=== PATIENT | female | born 1985 | race African-American/Black ===

== ENCOUNTER 2016-11-07 14:59 | Observation (INO) | payer BC, OTHER ==
[2016-11-07 15:57] LABS: #Basophils 0.1 thou/uL (0.0-0.2); #Eosinphils 0.3 thou/uL (0.0-0.7); #Lymphocytes 1.8 thou/uL (1.20-3.40); #Monocytes 0.8 thou/uL (0.11-0.59); #Neutrophils 6.5 thou/uL (1.40-6.50); %Basophils 0.9 % (0.0-1.0); %Eosinophils 3.1 % (0.0-10.0); %Monocytes 8.3 % (0.0-10.0); Hematocrit 37.8 % (36.0-47.0); White Blood Cell (WBC) Count 9.5 thou/uL (4.8-10.8)
[2016-11-07 15:59] LABS: PTT 23.5 SEC (22.9-36.1); Prothrombin Time 13.5 SEC (12.0-14.7)
[2016-11-07 16:06] LABS: Bilirubin Negative (Negative); Blood, Urine Negative (Negative); Glucose, Urine (Dipstick) Negative (Negative); Ketone, Urine Negative (Negative); Nitrite Negative (Negative); Protein, Urine (Dipstick) Negative (Neg-Trace)
[2016-11-07 16:19] LABS: Troponin I Less than 0.010 ng/mL (< 0.028)
[2016-11-07 16:25] LABS: Amphetamine Not Detected (NotDetected); Methadone Not Detected (NotDetected); Methamphetamine Not Detected (NotDetected)
[2016-11-07 16:29] LABS: Acetaminophen Less than 6.0 mcg/mL (10.0-30.0); Salicylate Less than 8.0 mg/dL (15.0-30.0)
--- NOTE | 2016-11-07 16:40 | CT ---
EXAM: NONCONTRAST HEAD CT: 11/07/16 HISTORY: Altered mental status. Left sided numbness. COMPARISON: None. TECHNIQUE: Noncontrast head CT is performed from skull base to skull vertex. FINDINGS: No parenchymal hemorrhage. No extra-axial hematoma. No midline shift. Basilar cisterns are patent. B rain volume, age appropriate. Cortical gan-white matter differentiation is preserved. Ventricles and sulci are patent and symmetric. Calvarium is intact. Adequate aeration of the sinuses and mastoid air cells. IMPRESSION: No acute intracranial process. POS: [facility]
[2016-11-07 16:51] LABS: ALT (SGPT) 11 U/L (8-55); AST (SGOT) 25 U/L (5-34); Alkaline Phosphatase 68 U/L (40-150); Anion Gap 16 mmol/L (10-20); BUN (Urea Nitrogen) 7 mg/dL (7.0-18.7); Bilirubin, Total 0.3 mg/dL (0.2-1.2); CK (CPK) 84 U/L (29-168); Calc. Creatinine Clearance 0 mL/min (70-130); Calcium 9.2 mg/dL (7.8-10.44); Carbon Dioxide 20 mmol/L (22-29); Chloride 109 mmol/L (98-107); Estimated GFR-MDRD Greater than 90; Globulin 4.1 g/dL (2.4-3.5); Lipase 12 U/L (8-78); Protein, Total 8.3 g/dL (6.0-8.3)
--- NOTE | 2016-11-07 18:09 | RAD ---
1 VIEW CHEST: Date: 11/07/16 HISTORY: Altered mental status. COMPARISON: 11/24/15. FINDINGS: The heart is enlarged. Pulmonary vessels and hilum are normal. Costophrenic angles are clear. No mas s. No consolidation. No pneumothorax or osseous abnormalities. IMPRESSION: No acute cardiopulmonary process. POS: [facility]
[2016-11-07] MEDS ORDERED: Ondansetron ODT 4 MG TAB SL PRN (18:21)
[2016-11-07] MEDS ORDERED: Ondansetron HCl/PF 4 MG/2 ML Vial IVP PRN ×2 (18:21→18:30)
[2016-11-07] MEDS ORDERED: cloNIDine HCl 0.1 MG TAB PO PRN (18:30)
[2016-11-07] MEDS ORDERED: Lorazepam 1 MG TAB PO PRN (18:30)
[2016-11-07] MEDS ORDERED: Ondansetron ODT 4 MG TAB PO PRN (18:30)
[2016-11-07] MEDS ORDERED: Acetaminophen 500 MG TAB PO PRN (18:30)
[2016-11-07 19:24] VITALS: BMI 38.6
[2016-11-07] MEDS: Famotidine 20 MG TAB PO SCH (20:10)
[2016-11-07] MEDS: Ibuprofen 600 MG TAB PO SCH (20:10)
[2016-11-07] MEDS ORDERED: Nitroglycerin 0.4 MG TAB (25 Tab Bottle) PO PRN (23:36)
--- NOTE | 2016-11-08 02:04 | HP ---
DATE OF ADMISSION: 11/07/2016 PRIMARY CARE PROVIDER: [employer]. HISTORY OF PRESENT ILLNESS: This is a 31-year-old -[place] female who complained of left-si ded central chest pain with radiation to the left upper extremity including left arm numbness and le ft lower extremity weakness. The patient states the symptoms began within the last 48 hours, presen ting to [facility] Emergency Department where patient was treated symptomatically and supportiv karel with ibuprofen and tramadol for chest wall pain. The patient states the symptoms persisted with increasing left upper and lower extremity weakness and paresthesias. The patient denied any specif ic visual disturbance, difficulty with speech, recent trauma, injury, chest congestion, pneumonia or exposure history. The patient denied any history of blunt trauma, recent MVA with seatbelt trauma or prior history of similar symptoms. The patient states she remains healthy and does not take any chronic medications. The patient denies any specific change to her activity level, increased exerci se routines. The patient presented to the emergency room undergoing evaluation including CT imaging of the brain showing no acute intracranial process. The patient received aspirin 324 mg in additio n to normal saline IV x1 liter in the emergency room. The patient denied any known history of early coronary artery disease or strong family. 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 PAST SURGICAL HISTORY: 1. Status post adenoidectomy. 2. Status post tonsillectomy. 3. Status post section x2. CURRENT MEDICATIONS: Tramadol and ibuprofen. ALLERGIES: PEANUTS, GRASS POLLEN, MILK, MOLD and SHELLFISH. FAMILY HISTORY: No inheritable diseases per patient report. SOCIAL HISTORY: Patient resides in [place], [place]. The patient resides with her parents. 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 No current alcohol, tobacco or ill icit drug use. REVIEW OF SYSTEMS: The following complete review of systems was negative, unless otherwise mentione d in the HPI or below: Constitutional: Weight loss or gain, ability to conduct usual activities. Skin: Rash, itching. Eyes: Double vision, pain. ENT/Mouth: Nose bleeding, neck stiffness, pain, tenderness. Cardiovascular: Palpitations, dyspnea on exertion, orthopnea. Respiratory: Shortness of breath, wheezing, cough, hemoptysis, fever or night sweats. Gastrointestinal: Poor appetite, abdominal pain, heartburn, nausea, vomiting, constipation, or diar reyna. Genitourinary: Urgency, frequency, dysuria, nocturia. Musculoskeletal: Pain, swelling. Neurologic/Psychiatric: Anxiety, depression. Allergy/Immunologic: Skin rash, bleeding tendency. PHYSICAL EXAMINATION: VITAL SIGNS: On admission, blood pressure 103/73, pulse 83, respiratory rate 18, temperature 98.3 d egrees Fahrenheit, O2 saturation 99% on room air. GENERAL APPEARANCE: This is a 31-year-old -[place] female, alert and oriented x3, pleasant, conversant, smiling, in no acute distress. HEENT: Pupils are equal, round, and reactive to light and accommodation. Extraocular muscles are i ntact. No scleral icterus, no conjunctival injection. Nares patent. OP is clear. Teeth in good r epair. NECK: Supple, no cervical adenopathy, no thyromegaly, no carotid bruits, no JVD appreciated. Cervi talia spine with full active and passive range of motion. CHEST: Lungs are clear to auscultation bilaterally. CARDIOVASCULAR: S1, S2, without noted murmur. ABDOMEN: Rounded, soft, nontender, nondistended. Bowel sounds are positive in all four quadrants. There is no hepatosplenomegaly, no abdominal bruits, no rebound or guarding appreciated. EXTREMITIES: Warm and dry with fair turgor. No clubbing, cyanosis or asymmetric edema appreciated. Pulses palpable distally at the dorsalis pedis, posterior tibial and popliteal arteries bilaterall y. Capillary refill less than 2 seconds. NEUROLOGIC: Cranial nerves II-XII are grossly intact. Mild left upper extremity weakness on exam. Right hand dominant. PERTINENT LABORATORY AND X-RAY FINDINGS: Sodium 141, potassium 4.2, chloride 109, CO2 of 20, BUN 7, creatinine 0.65, estimated GFR greater than 90, glucose 69, calcium 9.2. LFTs within normal limits . BNP 34.1. TSH 1.24. Prolactin level 11.22. Serum beta hCG negative. CBC within normal limits. PT 13.5, INR 1.0, PTT 23.5. Urinalysis negative. Urine drug screen dated 11/07/2016 negative. P lasma alcohol level less than 10. Portable chest x-ray dated 11/07/2016 showed no acute cardiopulmo nary process. CT of the brain without contrast dated 11/07/2016 showed no acute intracranial proces s. EKG dated 11/07/2016 by my interpretation shows sinus mechanism with rates in the 80s. Normal R -wave progression noted in the precordial leads. Normal axis. No acute ST-T wave changes appreciat ed. ASSESSMENT AND PLAN: 1. Left-sided paresthesias. The patient will be observed on the stroke unit. Questionable transie nt ischemic attack versus benign paresthesias. We will proceed with MRI imaging of the brain for de finitive evaluation. The patient's presentation not consistent with a true ischemic event. 2. Chest pain. Appears chest wall in nature on clinical exam. Continue symptomatic and supportive management. Continue ibuprofen 600 mg p.o. t.i.d. 3. Prophylaxis. Sequential compression devices while in bed. Pepcid 20 mg p.o. b.i.d. 4. Code status is FULL. Surrogate medical decision maker is the patient's mother.
[2016-11-08] MEDS: Famotidine 20 MG TAB PO SCH (09:42)
[2016-11-08] MEDS: Ibuprofen 600 MG TAB PO SCH (09:43)
[2016-11-08 12:25] VITALS: BP 110/74; TEMP 97.4
--- NOTE | 2016-11-08 14:46 | MRI ---
MRI BRAIN NONCONTRAST: HISTORY: 31-year-old female with left sided paresthesia, left sided hypesthesia, and altered mental status. FINDINGS: The ventricles are normal in size and configuration. There is no major intraaxial signal abnormalit y, restricted diffusion, midline shift or any other mass effect, recent intraaxial hemorrhage, or ex traaxial fluid collection. The cerebellar tonsils are slightly pointed, but protrude inferior to th e foramen magnum only a distance of approximately 3 mm. IMPRESSION: Negative. jnr POS: [facility]
--- NOTE | 2016-11-08 18:39 | DIS ---
DATE OF ADMISSION: 11/07/2016 DATE OF DISCHARGE: 11/08/2016 DISCHARGE DIAGNOSES: 1. Left-sided paresthesias, etiology unclear, resolved. 2. Chest pain, non-cardiac. CONSULTATIONS: None. PERTINENT LABORATORY DATA AND X-RAY FINDINGS: Complete metabolic profile within normal limits. Tro ponin I negative x1. BNP 34. LFTs within normal limits. Lipase 12. TSH 1.24. Prolactin level 11 .2, serum beta hCG negative. Vitamin B12 level 220. Folate 4.9. CBC within normal limits. Urine drug screen dated 11/07/2016 negative. Urinalysis 11/07/2016 negative. Portable chest x-ray dated 11/07/2016 showed no acute cardiopulmonary process. CT of the brain without contrast dated 11/08/19 17 showed no acute intracranial process. MRI of the brain dated 11/08/2016 showed no acute intracra nial process. HOSPITAL COURSE: Patient was observed on the stroke unit after initially presenting with left-sided weakness and paresthesias concerning for questionable TIA. The patient underwent extensive evaluat ion including neuro imaging studies all negative. Metabolic survey was unrevealing and telemetry mo nitoring showed sinus mechanism without evidence of acute arrhythmia or dysrhythmia. The patient [place] remained clinically stable throughout the hospital course with resolution of symptoms. The pa tient ready for discharge 11/08/2016. DISCHARGE MEDICATION: Ibuprofen 600 mg 1 tablet p.o. t.i.d. p.r.n. FOLLOWUP: The patient will follow up with her primary care provider, Yazmin Mcnair, Family Nurse Josue wiseman within 7 days. CONDITION ON DISCHARGE: Stable. ACTIVITY: Ad femi. DIET: Regular. CODE STATUS: FULL. DISPOSITION: Home, 11/08/2016.
== END 2016-11-08 15:15 | disposition home or self-care (01) ==
LOC: ERS 14:59 → 2SE 16:40
PROVIDERS: ADMIT Internal Medicine; ATTEND Internal Medicine
DX: R20.9 Unspecified disturbances of skin sensation (principal); R07.89 Other chest pain; R53.1 Weakness; R41.82 Altered mental status, unspecified; Z91.010 Allergy to peanuts; Z91.013 Allergy to seafood; Z91.018 Allergy to other foods; Z91.048 Other nonmedicinal substance allergy status; Z79.899 Other long term (current) drug therapy
CPT/HCPCS: 36415; 70450; 70551; 71010; 80053; 80306; 80307; 81003; 82550; 82553; 82607; 82746; 83690; 83735; 83880; 84146; 84443; 84484; 84703; 85025; 85610; 85730; 93005; 94760; 96360; G0378

== ENCOUNTER 2016-11-27 08:39 | Emergency (ER) | payer BC, OTHER ==
[2016-11-27] MEDS ORDERED: EPINEPHrine 1 MG/ML AMP ONE (09:25)
[2016-11-27] MEDS ORDERED: Famotidine/PF 20 mg/2ml Vial ONE (09:25)
[2016-11-27] MEDS ORDERED: methylPREDNISolone Sod Succ/PF 125 MG/2 ML VIAL ONE (09:25)
[2016-11-27] MEDS ORDERED: Sterile Water 10 ML ONE (09:25)
[2016-11-27 09:43] LABS: Anion Gap 15 mmol/L (10-20); BUN (Urea Nitrogen) 7 mg/dL (7.0-18.7); Calc. Creatinine Clearance 0 mL/min (70-130); Calcium 8.9 mg/dL (7.8-10.44); Carbon Dioxide 17 mmol/L (22-29); Chloride 110 mmol/L (98-107); Estimated GFR-MDRD Greater than 90
[2016-11-27] MEDS ORDERED: Potassium Chloride 20 MEQ TAB ONE (10:59)
== END 2016-11-27 14:03 | disposition home or self-care (01) ==
LOC: ERS 08:39
DX: T78.1XXA Other adverse food reactions, not elsewhere classified, initial encounter (principal); E87.6 Hypokalemia
CPT/HCPCS: 36415; 80048; 81025; 93005; 96361; 96372; 96374; 96375; A4216; J0171; J2930; S0028

== ENCOUNTER 2017-02-12 19:17 | Emergency (ER) | payer BC ==
[2017-02-12] MEDS ORDERED: methylPREDNISolone Sod Succ/PF 125 MG/2 ML VIAL ONE (19:26)
[2017-02-12] MEDS ORDERED: diphenhydrAMINE 50 MG/ML VIAL ONE (19:26)
[2017-02-12] MEDS ORDERED: Famotidine/PF 20 mg/2ml Vial ONE (19:27)
[2017-02-12] MEDS ORDERED: EPINEPHrine 1 MG/10 ML Abboject SYRINGE ONE (20:17)
[2017-02-12] MEDS ORDERED: EPINEPHrine 1 MG/ML AMP ONE (20:18)
== END 2017-02-13 00:32 | disposition home or self-care (01) ==
LOC: ERS 19:17
DX: L23.6 Allergic contact dermatitis due to food in contact with the skin (principal); F41.9 Anxiety disorder, unspecified; Z79.899 Other long term (current) drug therapy
CPT/HCPCS: 96361; 96372; 96374; 96375; J0171; J1200; J2930; J7620; S0028

== ENCOUNTER 2017-03-18 21:25 | Emergency (ER) | payer BC ==
[2017-03-18] MEDS ORDERED: Acetaminophen 500 MG TAB ONE (22:23)
--- NOTE | 2017-03-20 15:12 | RAD ---
CHEST ONE VIEW: History: Dyspnea. Intubated. Comparison: 11-07-16 FINDINGS: Cardiac silhouette is magnified and enlarged. Pulmonary vasculature is upper limits of normal. Medias tinum is midline. Tip of an endotracheal catheter overlies the thoracic inlet. Nasogastric tube desce nds to the abdomen. There is no confluent airspace consolidation or evidence of pneumothorax. IMPRESSION: Endotracheal catheter is in good radiographic position. POS: [facility]
== END 2017-03-19 00:05 | disposition home or self-care (01) ==
LOC: ERS 21:25
DX: T78.1XXA Other adverse food reactions, not elsewhere classified, initial encounter (principal); F41.9 Anxiety disorder, unspecified; Z79.899 Other long term (current) drug therapy
CPT/HCPCS: 71045; 96360; 96361

== ENCOUNTER 2017-03-20 14:41 | Inpatient (IN) | payer BC, OTHER ==
[2017-03-20] MEDS ORDERED: Propofol 1,000 MG/100 ML VIAL IV ONE ×3 (14:46→22:20)
[2017-03-20 15:02] LABS: #Basophils 0.1 thou/uL (0.0-0.2); #Eosinphils 0.1 thou/uL (0.0-0.7); #Lymphocytes 3.3 thou/uL (1.20-3.40); #Monocytes 0.8 thou/uL (0.11-0.59); #Neutrophils 6.1 thou/uL (1.40-6.50); %Basophils 0.6 % (0.0-1.0); %Eosinophils 1.2 % (0.0-10.0); %Lymphocytes 31.5 % (21.0-51.0); %Monocytes 7.8 % (0.0-10.0); %Neutrophils 58.9 % (42.0-75.0); Hemoglobin 11.6 g/dL (12.0-16.0); Mean Corpuscular Hemoglobin 28.8 pg (27.0-31.0); Mean Corpuscular Volume 87.4 fl (81.0-99.0); Mean Platelet Volume 7.9 fL (7.4-10.4); Platelet Count 290 thou/uL (130-400); RBC Distribution Width 12.5 % (11.5-14.5); Red Blood Cell (RBC) Count 4.03 mill/uL (4.20-5.40); White Blood Cell (WBC) Count 10.4 thou/uL (4.8-10.8)
[2017-03-20] MEDS ORDERED: Famotidine/PF 20 mg/2ml Vial ONE (15:16)
[2017-03-20 15:19] LABS: Actual Bicarbonate (HCO3a) 19.9 mEq/L (22-26); Base Excess (BEa) -5.8 mEq/L (0 (+/-) 2.5); CO2 Tension 39.8 mmHg (35.0-45.0); Hematocrit-ABG 36.3 % (36.0-47.0); Hemoglobin (Hb) 11.4 g/dL (12.0-16.0); O2 Tension (PaO2) 98.7 mmHg (80.0-100.0); pH, Arterial 7.31 (7.35-7.45)
[2017-03-20 15:20] LABS: Analyzer IN Cardio ER; Calcium, Ionized 1.2 mmol/L (1.12-1.30); Carboxyhemoglobin (COHb) 1.3 gm% (0.0-3.0); Potassium - ABG Lab 2.5 mmol/L (3.70-5.30); Puncture Site RBRACH
[2017-03-20 15:22] LABS: ALT (SGPT) 9 U/L (8-55); AST (SGOT) 15 U/L (5-34); Alkaline Phosphatase 58 U/L (40-150); Anion Gap 13 mmol/L (10-20); BUN (Urea Nitrogen) 6 mg/dL (7.0-18.7); Bilirubin, Total 0.5 mg/dL (0.2-1.2); Calc. Creatinine Clearance 0 mL/min (70-130); Calcium 8.6 mg/dL (7.8-10.44); Carbon Dioxide 18 mmol/L (22-29); Chloride 109 mmol/L (98-107); Estimated GFR-MDRD Greater than 90; Globulin 3.2 g/dL (2.4-3.5); Glucose 122 mg/dL (70-105); Protein, Total 7.2 g/dL (6.0-8.3); Sodium 137 mmol/L (136-145)
[2017-03-20 15:24] LABS: Bilirubin Negative (Negative); Blood, Urine Negative (Negative); Clarity CLEAR (Clear); Glucose, Urine (Dipstick) Negative (Negative); Leukocyte Negative (Negative); Nitrite Negative (Negative); Protein, Urine (Dipstick) Negative (Neg-Trace); Specific Gravity, Urine 1.014 (1.002-1.036); Urobilinogen 0.2 mg/dL (0.2-1.0); pH, Urine 6.5 (5.0-9.0)
[2017-03-20 15:33] LABS: Amphetamine Not Detected (NotDetected); Barbiturates Screen Not Detected (NotDetected); Benzodiazepine Screen Not Detected (NotDetected); Cocaine Metabolite Screen Not Detected (NotDetected); Medtox Reader # READER 1; Methadone Not Detected (NotDetected); Methamphetamine Not Detected (NotDetected); Opiate Screen Not Detected (NotDetected); Oxycodone Screen Not Detected (NotDetected); Phencyclidine (PCP) Not Detected (NotDetected); THC/Cannabinoid Screen Not Detected (NotDetected); Tricyclic Screen Not Detected (NotDetected)
[2017-03-20 15:34] LABS: Medtox Control Line Valid? VALID (VALID)
[2017-03-20 15:35] LABS: Potassium 2.6 mmol/L (3.5-5.1)
[2017-03-20] MEDS ORDERED: Fentanyl 100 MCG/2 ML VIAL ONE (15:57)
[2017-03-20] MEDS ORDERED: Diazepam 10 MG/2 ML SYRINGE IVP SCH (16:30)
[2017-03-20 17:17] VITALS: BMI 38.5
--- NOTE | 2017-03-20 17:19 | PDOC.EVN ---
Event Note - Event Note Event Note: 31 yo black female with anaphylactic reaction to peanut today not ingested only the smell triggered major reaction. patient self administered epipen x 2 and EMS intubated patient in field and brought to [facility]. Patient with multiple severe prior episodes and recent admission with anaphylaxis. Patient with questionable prior desensitization immunotherapy by local byproducts operator. 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 Exam intubated with good air exchange. Will admit Dr Luis( Pulmonary)has been consulted, continue IV steroids , H2 antagonist, respiratory support and observation. terminal computer operator will neeed graphics specialist referral for the severity of this patients condition.
[2017-03-20] MEDS ORDERED: fentaNYL Citrate/PF 2,000 MCG in Sodium Chloride 0.9% 60 ML IV SCH (17:27)
[2017-03-20] MEDS ORDERED: Morphine 2 MG/ML SYRINGE SLOW IVP PRN (17:27)
[2017-03-20] MEDS ORDERED: Fentanyl BOLUS 250 ML IVPB PRN (17:27)
[2017-03-20] MEDS ORDERED: Lorazepam 2 MG/ML VIAL SLOW IVP PRN (17:27)
[2017-03-20] MEDS: Sodium Chloride 0.9% 1,000 ML IV SCH (17:30)
[2017-03-20] MEDS ORDERED: Potassium Chloride 40 MEQ in Sodium Chloride 0.9% 500 ML IVPB SCH (17:45)
[2017-03-20] MEDS ORDERED: FLU VACC QS2017-18 36 mo. & older 0.5 ML SYRINGE IM ONE (21:00)
--- NOTE | 2017-03-20 23:33 | HP-2 ---
CODE STATUS: FULL. PRIMARY CARE PHYSICIAN: Alyssia pradhan. ATTENDING: Dr. Nguyen. RESIDENT: Dr. Heena Henderson. CHIEF COMPLAINT: Allergic reaction, anaphylaxis, status post intubation. HISTORY OF PRESENT ILLNESS: This is a 31-year-old -Citizen Of [place] female with past medical history of severe peanut and seafood allergy and history of anaphylaxis requiring prior intubations that presents secondary to anaphylaxis from peanut allergy. Patient was intubated in the field. 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 She did not consume any peanuts or shellfish. She did give herself an injection with 2 epinephrine pens before EMS arrived, but was not responding well. EMS gave her an additional injection of epinephrine and a liter of normal saline, but there were concerns for patient maintaining her airway. Thus, she was intubated in the field prior to arrival. In the emergency department, she received 125 mg of Solu-Medrol as well as 50 mg of Benadryl and she was placed on propofol for sedation. Patient's family was able to communicate that she developed these allergies after giving to her second child. She had some mild allergies as a child, but never reacted in this way. She has been seeing an environmental remediation specialist and was getting allergy shots; however, it is unclear whether or not she finished with desensitization. Family is really not certain when she last followed with her environmental remediation specialist or what exactly she has had done. 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 PAST SURGICAL HISTORY: 1. Adenoidectomy. 2. Tonsillectomy. 3. C-sections x2. ALLERGIES: DUST, GRASS POLLEN, MILK, MOLD, PEANUT, SHELLFISH, cheese. Of note , patient does not have to actually consume shellfish or peanuts for her to have an allergic reaction. The smell of them is enough to put her into anaphylactic shocks. MEDICATIONS: Epinephrine pen. Family thinks that she might be on other medications, but they were unable to relay that information at this time. FAMILY HISTORY: Noncontributory. SOCIAL HISTORY: Per family, the patient does not smoke, drink, or do drugs. 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 REVIEW OF SYSTEMS: Unable to obtain at this time secondary to patient being intubated and sedated. PHYSICAL EXAMINATION: VITAL SIGNS: Blood pressure 154/88, pulse 139, respiratory rate 12, pulse ox 99 % on ventilator. Current weight 111.58 kilograms. GENERAL: The patient is currently sedated and intubated. EYES: Pupils equally round and reactive to light and accommodation. ENT: Nasal mucosa within normal limits. NECK: Supple. CARDIOVASCULAR: Regular rate and rhythm. There might be a mild systolic murmur. Radial and pedal pulses 2+. RESPIRATORY: The patient's breathing currently is supported by ventilator with FiO2 of 30% and PEEP of 5. LUNGS: Clear to auscultation bilaterally. SKIN: Warm and dry. No cyanosis or lesions. ABDOMEN: Soft, bowel sounds positive in all 4 quadrants. No masses or distention. EXTREMITIES: No clubbing, cyanosis, or edema. MUSCULOSKELETAL: Structure within normal limits. NEUROLOGIC: Patient is currently sedated with propofol and intubated. LABORATORY DATA: 1. CBC reveals white blood cell count 10.4, hemoglobin 11.6, hematocrit 35.2, platelets 290. 2. CMP reveals sodium 137, potassium 3.6, chloride 109, bicarbonate 18, BUN 6, creatinine 0.7, glucose 122, total bilirubin 0.5, calcium 8.6, total protein 7.2 , albumin 4.0, alkaline phosphatase 58, AST 9, ALT 15. 3. ABG shows a pH 7.31, pCO2 of 40, pO2 of 98. 4. UDS negative. 5. UA was negative. ASSESSMENT AND PLAN: This is a 31-year-old female, who presents with anaphylaxis, status post intubation. 1. Anaphylaxis secondary to peanut allergy. The patient was admitted to ICU as inpatient status. We will continue vent management per pulmonary. Dr. Luis was consulted. The patient is status post 3 injections of epinephrine IM. She has received 2 liters of intravenous fluids. We will continue maintenance fluids at this time. She received Benadryl in the Emergency Room along with steroids. We will continue steroids. There is no need for an epinephrine infusion or vasopressors at this time, as her blood pressure has responded well. She did have a decrease in blood pressure on propofol and sedation was changed per Dr. Luis. We will continue to monitor vital signs for fluid shifts and hypotension. Patient already has an anaphylaxis emergency action plan in place. Plan is to keep her on the ventilator at least for the next 24 hours and observe for biphasic reaction of anaphylaxis. 3. Hypokalemia. We will replace potassium. DISPOSITION AND LENGTH OF HOSPITAL STAY: 2 days. Symptomatic medications were provided. History and physical exam as well as management discussed with Dr. Nguyen. Patient examined and history obtained I agree with Dr Lujan assessment and plan [facility]
[2017-03-20] MEDS ORDERED: Propofol 1,000 MG/100 ML VIAL IV PRN ×3 (23:48→23:50)
[2017-03-21] MEDS: Sodium Chloride 0.9% 1,000 ML IV SCH ×3 (02:12→21:29)
[2017-03-21] MEDS ORDERED: Ondansetron PF 4 MG/2 ML Vial IVP PRN (04:22)
[2017-03-21 05:26] LABS: #Lymphocytes 0.7 thou/uL (1.20-3.40); #Monocytes 0.5 thou/uL (0.11-0.59); #Neutrophils 5.9 thou/uL (1.40-6.50); %Basophils 0.4 % (0.0-1.0); %Eosinophils 0.1 % (0.0-10.0); %Lymphocytes 9.2 % (21.0-51.0); %Monocytes 7.3 % (0.0-10.0); %Neutrophils 83.1 % (42.0-75.0); Hemoglobin 10.8 g/dL (12.0-16.0); Mean Corpuscular HGB CONC 33.8 g/dL (32.0-36.0); Mean Corpuscular Hemoglobin 29.2 pg (27.0-31.0); Mean Corpuscular Volume 86.4 fl (81.0-99.0); Platelet Count 233 thou/uL (130-400); RBC Distribution Width 12.4 % (11.5-14.5); Red Blood Cell (RBC) Count 3.71 mill/uL (4.20-5.40); White Blood Cell (WBC) Count 7.1 thou/uL (4.8-10.8)
[2017-03-21 05:47] LABS: Anion Gap 11 mmol/L (10-20); BUN (Urea Nitrogen) 6 mg/dL (7.0-18.7); Calc. Creatinine Clearance 234 mL/min (70-130); Calcium 8.8 mg/dL (7.8-10.44); Carbon Dioxide 19 mmol/L (22-29); Chloride 113 mmol/L (98-107); Estimated GFR-MDRD Greater than 90; Glucose 103 mg/dL (70-105); Sodium 139 mmol/L (136-145)
--- NOTE | 2017-03-21 06:40 | CON ---
DATE OF CONSULTATION: 03/20/2017 Ms. Durán is a 31-year-old female who reportedly has a SHELLFISH and PEANUT allergy. She has multiple other environmental allergies. She has seen an warp knitting machine operator in the past. She has had multiple visits to the ER for allergic reactions and anaphylaxis. From what I can tell from the family, she never did complete desensitization. She presented after apparently smelling peanuts, developing respiratory distress that did not respond to an EpiPen. She subsequently has been intubated. She was actually awake in the emergency department. PAST MEDICAL HISTORY: Remarkable for an admission in October for chest discomfort with left-sided reported weakness. An MRI was completely negative. She was only kept in the hospital, it appears, for about 24 hours. She is not felt to have cardiac chest discomfort. PAST MEDICAL HISTORY: Remarkable for tonsillectomy and two C-sections. SOCIAL HISTORY: She is a nonsmoker, nondrinker. She is a single mom. 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 FAMILY HISTORY: Negative for lung diseases or inheritable diseases. REVIEW OF SYSTEMS: Not obtainable since she is intubated. PHYSICAL EXAMINATION: VITAL SIGNS: In emergency department, her blood pressure dropped into the 80s. She was given 1 L of bolus and her propofol was turned off. She was given 10 mg of Valium, her blood pressure came up to 115 systolic. She was started to wake up, so I have recommended 5 mg of Versed IV push followed by 4 mg per hour drip. Clinically appeared that she would not tolerate the propofol. Heart rate is in the 70s, respiratory rate in the teens, oximetry is 100%. HEENT: Pupils were equal. Sclerae is anicteric. NECK: Supple. LUNGS: Remarkable for only end expiratory wheezes. She did not have tight wheezes as I would expect with anaphylactic reaction. HEART: Regular rhythm. ABDOMEN: Soft. EXTREMITIES: Without asymmetry. LABORATORY DATA: White count 10.4, hemoglobin 11.6, platelets 290,000. Sodium 137, potassium 2.6, chloride 109, bicarbonate 18, BUN 6, creatinine 0.69, glucose 122. A pH 7.31, CO2 of 39, pO2 of 98. IMPRESSION: Status post anaphylaxis to ? smelling peanuts. I suspect this is certainly been reported, but it is also extremely uncommon. She has had several events related to smells in the past. I see frequent admissions for "allergic reactions" with no clear attempt at getting desensitization to a severe allergy, I would wonder about some secondary gain, but her family denies that she has any life stresses other than the usual stress of employment and raising a child, and the usual stress of being a single mom. Hopefully, she will stabilize overnight. We consider spontaneous breathing trial and a leak test in the morning. She does have mild metabolic acidosis, which would argue that this was a real event. Family could not tell me who her warp knitting machine operator was, so I really could not contact anybody this evening. She appears to have stabilized. Critical care time 45 minutes. DARCY
--- NOTE | 2017-03-21 07:57 | PDOC.FM ---
- Subjective Subjective: Patient is on light sedation with versed and intubated this AM. She follows commands well and responds to questions with head movements. - Objective MAR Reviewed: Yes Vital Signs & Weight: Vital Signs (12 hours) Temp Pulse Resp BP 03/21/17 07:28 71 122/76 18 06:00 16 03/21/17 05:00 98.4 F 03/21/17 04:00 16 03/21/17 03:44 71 113/64 03/21/17 02:00 14 03/21/17 00:55 74 115/72 03/21/17 00:00 14 03/20/17 22:00 14 03/20/17 21:57 69 114/68 03/20/17 20:00 14 Most Recent Monitor Data Heart Rate from ECG 71 NIBP 122/76 NIBP BP-Mean 92 Respiration from ECG 14 SpO2 100 I&O: 03/20/17 03/21/17 03/22/17 06:59 06:59 06:59 Intake Total 2315 Output Total 3635 60 Balance -1320 -60 Result Diagrams: 03/21/17 05:06 03/21/17 05:06 <Philomena Jensen - Last Filed: 03/21/17 08:52> - Objective Vital Signs & Weight: Vital Signs (12 hours) Temp Pulse Resp BP Pulse Ox 03/21/17 08:00 98.6 F 71 15 100 03/21/17 07:28 71 122/76 03/21/17 06:00 16 03/21/17 05:00 98.4 F 03/21/17 04:00 16 03/21/17 03:44 71 113/64 03/21/17 02:00 14 03/21/17 00:55 74 115/72 Most Recent Monitor Data Heart Rate from ECG 56 NIBP 119/62 NIBP BP-Mean 92 Respiration from ECG 17 SpO2 100 I&O: 03/20/17 03/21/17 03/22/17 06:59 06:59 06:59 Intake Total 2315 Output Total 3635 620 Balance -1320 -620 Result Diagrams: 03/21/17 05:06 03/21/17 05:06 <Dejuan Park - Last Filed: 03/21/17 12:11> Phys Exam - Physical Examination Constitutional: NAD intubated Respiratory: no wheezing, no rales, no rhonchi Cardiovascular: RRR, no significant murmur Gastrointestinal: soft, positive bowel sounds Musculoskeletal: no edema Neurological: non-focal, moves all 4 limbs Skin: cap refill <2 seconds <Philomena Jensen - Last Filed: 03/21/17 08:52> Dx/Plan (1) Anaphylactic reaction Code(s): T78.2XXA - ANAPHYLACTIC SHOCK, UNSPECIFIED, INITIAL ENCOUNTER Status : Acute Plan: Likely extubate later today and cont to monitor. Possibly home later this evening vs tomorrow AM since at risk for biphasic anaphylaxis but expect this within 12 hours. solumedrol this AM. Needs new Epi pen prior to DC. Patient doing better although I suspect she may have additional allergies and need to have follow up with an professor of engineering for cont testing and desensitization. <Philomena Jensen - Last Filed: 03/21/17 08:52> Attending Addendum - Attending Addendum I personally evaluated the patient and discussed the management with Dr. Jensen. I agree with and repeated the History, Examination, Assessment and Plan documented above with any addition or exceptions noted below. Patient extubated, is feeling much better. She says she just smelled peanuts and then her throat closed up. No n/v/abd pain or dizziness. Continue current meds for anaphylaxis. I am also suspicious of vocal cord dysfunction. Will ask speech to see her. <Dejuan Park - Last Filed: 03/21/17 12:11>
[2017-03-21] MEDS: methylPREDNISolone Sod Succ/PF 125 MG/2 ML VIAL IVP SCH (09:19)
[2017-03-21] MEDS ORDERED: Furosemide 40 MG TAB PO SCH (18:15)
--- NOTE | 2017-03-21 21:16 | PRG ---
DATE OF SERVICE: 03/21/2017 SUBJECTIVE: Ms. Durán is afebrile this morning. OBJECTIVE: VITAL SIGNS: Her vital signs are stable. She passed a leak test. She was not wheezing. Her airway pressures were not high. LUNGS: Clear. CARDIOVASCULAR: Regular rhythm. S1 and S2 are normal. ABDOMEN: Soft and nontender. EXTREMITIES: Asymmetry. LABORATORY DATA: White count 7.1, hemoglobin 10.8, platelets 233,000. Sodium 139, potassium 4, chloride 113, bicarb 19, BUN 6, creatinine 0.57. There was no blood gas done this morning. IMPRESSION: ?anaphylaxis to a smell of peanuts. Once I had her extubated this morning (I felt she was a candidate for extubation. This was done successfully.) We had a long discussion about her allergies. She was seen one of the ears, nose, and throat surgeons and not an work car operator. If she does have this severe of an allergy. I really feel that she should be seen by an allergy trained work car operator and undergo complete desensitization of all the major allergies she has. Peanuts allergies are very difficult to deal with and difficult to maintain. Again, I have never seen an odor causes anaphylaxis and I actually discussed with her and her family. There is a possibility of a conversion disorder.I gave them them several examples of things I have seen in the past. I would recommend that we all assume that this is a true anaphylactic reaction to the peanuts or the smell, but also keep in the back of our minds the possibility of a conversion disorder contributing to this. She turned around very quickly, but did require aggressive volume resuscitation in the emergency room. Part of the problem was hypotension with propofol. All these issues are resolved now she in my opinion is stable to move out of the Critical Care Unit. Critical care time 40 minutes. DARCY
[2017-03-21] MEDS ORDERED: diphenhydrAMINE 50 MG/ML VIAL IVP SCH (23:45)
[2017-03-22 01:35] LABS: #Lymphocytes 1.3 thou/uL (1.20-3.40); #Monocytes 0.8 thou/uL (0.11-0.59); #Neutrophils 7.1 thou/uL (1.40-6.50); %Basophils 0.2 % (0.0-1.0); %Eosinophils 0.1 % (0.0-10.0); %Lymphocytes 14.5 % (21.0-51.0); %Monocytes 8.3 % (0.0-10.0); Hemoglobin 10.8 g/dL (12.0-16.0); Mean Corpuscular Hemoglobin 29.6 pg (27.0-31.0); Mean Platelet Volume 8.5 fL (7.4-10.4); Platelet Count 200 thou/uL (130-400); RBC Distribution Width 12.5 % (11.5-14.5); Red Blood Cell (RBC) Count 3.66 mill/uL (4.20-5.40); White Blood Cell (WBC) Count 9.2 thou/uL (4.8-10.8)
[2017-03-22 01:54] LABS: Anion Gap 12 mmol/L (10-20); BUN (Urea Nitrogen) 7 mg/dL (7.0-18.7); Calc. Creatinine Clearance 209 mL/min (70-130); Calcium 8.8 mg/dL (7.8-10.44); Carbon Dioxide 20 mmol/L (22-29); Chloride 113 mmol/L (98-107); Estimated GFR-MDRD Greater than 90; Glucose 90 mg/dL (70-105); Potassium 3.7 mmol/L (3.5-5.1); Sodium 141 mmol/L (136-145)
[2017-03-22 02:00] LABS: CKMB 0.3 ng/mL (0-6.6); Troponin I Less than 0.010 ng/mL (< 0.028)
[2017-03-22] MEDS ORDERED: Ketorolac Tromethamine 30 MG/ML VIAL IVP SCH (04:00)
[2017-03-22 07:31] LABS: Iron 48 ug/dL (50-170); Iron Binding Capacity, Total 286 mcg/dL (265-497)
--- NOTE | 2017-03-22 08:11 | PDOC.FM ---
- Subjective Subjective: Patient had eventful night including becoming bradycardic with normal BP. She was transferred to telemetry. C/O headache and was given toradol around 0400. She reports headaches at home that improve with ibuprofen, but states that this headache is different in that she also has a sharp pain posteriorly in her head. She notes inability to swallow even liquids bc her throat is still swollen. She does not report any difficulty with breathing except when being transferred rooms last night she felt a little SOB. She reports feeling lightheaded when up to walk around. - Objective Vital Signs & Weight: Vital Signs (12 hours) Temp Pulse Resp BP Pulse Ox 03/22/17 02:35 98.0 F 43 L 16 120/75 100 03/22/17 02:24 50 L 18 101/66 100 03/22/17 01:00 97.5 F L 50 L 132/90 100 03/22/17 00:00 98.2 F 45 L 16 105/67 100 Most Recent Monitor Data Heart Rate from ECG 51 NIBP 122/64 NIBP BP-Mean 93 Respiration from ECG 19 SpO2 100 I&O: 03/21/17 03/22/17 03/23/17 06:59 06:59 06:59 Intake Total 2315 1931 Output Total 3635 1465 Balance -1320 466 Result Diagrams: 03/22/17 01:14 03/22/17 01:14 <Philomena Jensen - Last Filed: 03/22/17 11:03> - Objective Vital Signs & Weight: Vital Signs (12 hours) Temp Pulse Resp BP Pulse Ox 03/22/17 08:00 98 F 45 L 16 124/64 100 03/22/17 02:35 98.0 F 43 L 16 120/75 100 03/22/17 02:24 50 L 18 101/66 100 03/22/17 01:00 97.5 F L 50 L 132/90 100 03/22/17 00:00 98.2 F 45 L 16 105/67 100 Most Recent Monitor Data Heart Rate from ECG 51 NIBP 122/64 NIBP BP-Mean 93 Respiration from ECG 19 SpO2 100 I&O: 03/21/17 03/22/17 03/23/17 06:59 06:59 06:59 Intake Total 2315 1931 Output Total 3635 1465 1000 Balance -1320 466 -1000 Result Diagrams: 03/22/17 01:14 03/22/17 01:14 <Dejuan Park - Last Filed: 03/22/17 11:10> Phys Exam - Physical Examination Constitutional: NAD HEENT: moist MMs no stridor, no uvular swelling Respiratory: no wheezing, no rales, no rhonchi, clear to auscultation bilateral Cardiovascular: RRR, no significant murmur Gastrointestinal: soft, non-tender, no distention, positive bowel sounds Musculoskeletal: no edema Neurological: non-focal, normal sensation, moves all 4 limbs Psychiatric: normal affect Skin: cap refill <2 seconds <Philomena Jensen - Last Filed: 03/22/17 11:03> Dx/Plan (1) Anaphylactic reaction Code(s): T78.2XXA - ANAPHYLACTIC SHOCK, UNSPECIFIED, INITIAL ENCOUNTER Status : Acute Plan: Extubated yesterday afternoon following anaphylactic reaction. Epi pen to be sent to pt's pharmacy. Consider other etiology such as vocal cord dysfunction. She needs follow up with [facility] and will arrange for her to see Dr. Hernandez to evaluate for severe allergies and possible desensitization vs vocal cord dysfunction. (2) Symptomatic sinus bradycardia Code(s): R00.1 - BRADYCARDIA, UNSPECIFIED Status: Acute Plan: normal TSH. CA interval normal. QTC wnl. Not on medications at risk for bradycardia. Some SOB overnight with this but better this AM. Still remains bradycardic. Lightheaded when up to stand. check orthostatics. consult cardiology (3) Anxiety Code(s): F41.9 - ANXIETY DISORDER, UNSPECIFIED Status: Acute Plan: cont fluoxetine. <Philomena Jensen - Last Filed: 03/22/17 11:03> Attending Addendum - Attending Addendum I personally evaluated the patient and discussed the management with Dr. Jensen. I agree with and repeated the History, Examination, Assessment and Plan documented above with any addition or exceptions noted below. No headache/vision changes/n/v/f/c. Now with reported palps/dizziness/sob with standing. New symptomatic ashwin - will d/w cards Anaphylaxis - resolved. Continue steroids/H2 and benadryl PRN Will try to find a nasolaryngoscope in house. <Dejuan Park - Last Filed: 03/22/17 11:10>
[2017-03-22] MEDS ORDERED: Ferrous Sulfate 325 MG TAB PO SCH (08:15)
[2017-03-22] MEDS: methylPREDNISolone Sod Succ/PF 125 MG/2 ML VIAL IVP SCH (08:54)
[2017-03-22] MEDS ORDERED: Furosemide 40 MG TAB PO SCH (09:00)
[2017-03-22] MEDS: Ibuprofen 600 MG TAB PO PRN (13:05)
[2017-03-22] MEDS: Sodium Chloride 0.9% 1,000 ML IV SCH (15:43)
--- NOTE | 2017-03-22 18:31 | PRG ---
DATE OF SERVICE: 03/22/2017 SUBJECTIVE: Ms. Durán is afebrile. She says she does not feel well. OBJECTIVE: VITAL SIGNS: Heart rate is 45-55, respiratory rate is in the teens, oximetry is 97-100% on room air. Blood pressure 120/61. LUNGS: Completely clear. HEART: Regular rhythm. ABDOMEN: Soft. IMPRESSION AND PLAN: Status post anaphylaxis?, she turned around very quickly. In her age, heart rate in the 40s is not a concern. She is saying she cannot swallow. She has no stridor. She has nothing on exam to explain why she co uld not swallow. It would be appropriate just for documentation's sake to do a modified barium swall ow to confirm whether or not she can swallow. Reviewing old records, she had an admission for hemipl egia or hemiparesis. Magnetic resonance imaging was completely negative which again makes me wonder how much if this is conversion disorder. We still need to follow her and treat her as though this was true anaphylaxis, but allergy input as a n outpatient would be appropriate. She is stable for discharge in my opinion. We will sign off.
--- NOTE | 2017-03-22 22:01 | EKG ---
Test Reason : Blood Pressure : / mmHG Vent. Rate : 048 BPM Atrial Rate : 048 BPM P-R Int : 170 ms QRS Dur : 088 ms QT Int : 446 ms P-R-T Axes : 063 075 062 degrees QTc Int : 398 ms Sinus bradycardia with marked sinus arrhythmia Cannot rule out Anterior infarct , age undetermined Abnormal ECG When compared with ECG of 20-MAR-2017 14:55, (Unconfirmed) Vent. rate has decreased BY 73 BPM Non-specific change in ST segment in Inferior leads ST no longer depressed in Lateral leads Nonspecific T wave abnormality no longer evident in Inferior leads Inverted T waves have replaced nonspecific T wave abnormality in Anterior leads Confirmed by NAN AREVALO ([id number]) on 03/22/2017 10:00:53 PM Referred By: ANITRA Confirmed By:NAN AREVALO
[2017-03-22] MEDS: Acetaminophen 325 MG TAB PO PRN (22:44)
--- NOTE | 2017-03-22 23:36 | CON ---
DATE OF CONSULTATION: 03/22/2017 DATE OF ADMISSION: 03/20/2017 REASON FOR CONSULTATION: Bradycardia. HISTORY OF PRESENT ILLNESS: This is a 31-year-old female who was admitted after having an allergic r eaction to smelling peanut butter. She had an anaphylactic reaction to required intubation since she has been in the hospital. Actually, she took 2 epinephrine pens at home that prior to calling 911. She then presented to the emergency room and was given more epinephrine was treated for her acute al lergic reaction. Since being in the hospital, she has been noted to have some bradycardia with heart rates in the 30s to 70s. Otherwise, she has had no previous cardiac history that she is aware of. At this time, we will need to continue to just to monitor her. She is not a candidate at this time f or a pacemaker. She did have some dizziness and lightheadedness associated with bradycardia perhaps, but this will need to be watched just monitored very carefully. At this time, this may be a reactio n actually to the steroid that she is being given now for the allergic reaction. As far as her past medical history, social history, review of systems, medications, and allergies, please refer to the n otes dictated by the nurse practitioner. I have reviewed this and I would agree with her assessment and plan. PHYSICAL EXAMINATION: GENERAL: Reveals a young -Turkmen female who is in no acute distress at this time. She does have somewhat raspy voice after being intubated. She is alert and oriented. VITAL SIGNS: Her blood pressure is stable at 121/61, heart rate is anywhere between 40s to 70s at ti mes and appears to be sinus and sinus bradycardia, respiratory rate 16, O2 saturations are 97% to 100 % on room air. She is afebrile, blood pressure is 121/61. HEENT: Unremarkable. CHEST: Clear to auscultation. There were no rales, rhonchi, or wheezing. CARDIOVASCULAR: Exam shows bradycardic with a regular rhythm. There were no significant murmurs, he aves, thrills, bruits, or rubs. ABDOMEN: Shows obesity with positive bowel sounds. EXTREMITIES: Showed no clubbing, cyanosis, or edema. Pedal pulses are present. NEUROLOGIC: The patient is intact. IMPRESSION: Anaphylactic reaction, which required intubation and epinephrine. She since seems to hassan ve recovered from that, but now has developed bradycardia. This may be related somewhat to steroids. Would need to monitor the patient very carefully. Should she continue to have severe bradycardia o nce steroids are no longer being used, at least IV steroids, then she may eventually need to undergo pacemaker insertion, but I hope this will not be the case in this otherwise relatively cardiac health . Patient will obtain an echocardiogram for evaluation of the left ventricular systolic function to rule out any other evidence of abnormalities. Her EKG does not show any significant indication that she has any bundle branch blocks or any other abnormality except for the sinus bradycardia. If she r emains significantly bradycardic, I may ask the assistance of the satellite installation technician or she may need to be started on medications such as theophylline. I just slightly increased her heart rate during this episode. Otherwise, I would agree with the plan outlined by the nurse practitioner.
--- NOTE | 2017-03-23 03:37 | CON ---
DATE OF CONSULTATION: 03/22/2017. PRIMARY MEDICAL OFFICE SPECIALIST: Lakeisha Gutierrez MD REFERRING PHYSICIAN: Philomena Jensen MD REASON FOR CARDIOLOGY CONSULTATION: Sustained bradycardia. HISTORY OF PRESENT ILLNESS: Ms. 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 She was intubated at the ER and extubated, and the patient was transferred to [place] [id number] for observation; however, around night of 03/21/2017, the heart rates started downwards to the 40s, 50s, and 40s. The patient was transferred to stroke unit for cancer program coordinator. This morning, the patient was complaining about dizziness when she stands up, although the patient's orthostatic blood pressure was stable at that time. She says since then she does not have any lightheadedness or dizziness. She also denied chest pain, discomfort in her chest, palpitation, nausea, diaphoresis, or numbness to the left upper extremity. During the Cardiology consult assessment, she reports that she sometimes feel intermediate fluttering in her chest; however, telemetry record at that time shows sinus arrhythmia with heart rate of 40-70s. During the same time, she complained about shortness of breath; however, she thinks it is due to residual from anaphylactic reaction to the peanut butter smell or post intubation and extubation. She never seen a chief underwriter in the past and she has not had any cardiac related studies in the past. PAST MEDICAL HISTORY: Severe peanut, peanut butter smell, and seafood allergic reaction with anaphylaxis; required several intubation. PAST SURGICAL HISTORY: 1. Adenoidectomy. 2. Tonsillectomy. 3. x2. FAMILY HISTORY: Her maternal grandmother had medical history of hypertension and diabetes. The patient's mother has medical history of hypertension. 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 She is a single mother with 2 children, who live well. She never smoked and never used illicit drug. She does not drink. She enjoy 1 cup of tea a day and drink plenty of fluid or water through the day. ALLERGIES: She is allergic to DUST, GRASS POLLEN, MILK, MOLD, PEANUTS, PEANUT BUTTER SMELL, SHELLFISH, SEAFOOD, SEAFOOD SMELL, CHEESE, AND TREES. MEDICATIONS: Epinephrine pen, now she carried 2 epinephrine pen; she uses trazodone 50 mg at night for sleep; fluoxetine 40 mg every day for anxiety. REVIEW OF SYSTEMS: The following complete review of systems was negative, unless otherwise mentioned in the HPI or below. Constitutional: Weight loss or gain, sense of well-being, ability to conduct usual activities, exercise tolerance. Skin: Rash, itching, change in hair growth, nail change, breast lump, tenderness, swelling, nipple discharge. Eyes: Double vision, vision change, tearing, blind spot, or pain. HENT: Headache, vertigo, lightheadedness , nose bleeding, cold, obstruction, discharge, dental difficulty, gingival bleeding, dentures. Neck: Stiffness, pain, tenderness or mass in the thyroid or other areas. Cardiovascular: Precordial pain, substernal distress, palpitations, syncope, dyspnea on exertion, orthopnea, nocturnal dyspnea, edema , cyanosis, hypertension, heart murmur, claudication. Respiratory: Pain, wheezing, stridor, cough, hemoptysis, fever, or night sweat except when she has anaphylactic reaction. Gastrointestinal: Poor appetite, dysphagia, indigestion , abdominal pain, heartburn, eructation, nausea, vomiting, jaundice, constipation, diarrhea, abnormal stool, or blood in the stool. Genitourinary: Urgency, frequency, dysuria, nocturia, hematuria, polyuria, oliguria, unusual color of urine. Musculoskeletal: Pain, swelling, redness, heat of muscle or joint, limitation of motion, muscular weakness, atrophy, cramps. Neurologic: Convulsion, paralysis, tremor, incoordination, difficulty with memory or speech. Psychiatric: Emotional problem, anxiety, depression, previous psychiatric care, unusual perception, hallucination. PHYSICAL EXAMINATION: VITAL SIGNS: Blood pressure 121/61; heart rates 40s-50s, sinus rhythm; respiratory rate 16; O2 saturation 97% with room air; temperature 97.5. GENERAL: Well developed, well nourished, without any acute distress. HEAD: Normocephalic, atraumatic. EYES: Extraocular muscle movements are intact. ENT: Oral and nasal mucosa are moist without lesion. NECK: No JVD. Neck is supple and normal range of motion. LUNGS: Clear to auscultate bilaterally, but very diminished at the bases. No wheezing, rale, or rhonchi noted. CARDIOVASCULAR: Regular rate and rhythm. Normal S1, S2. There are no S3 or S4. No significant murmur, hives, thrill, bruit, or rub noted. There are 2+ pulses in bilateral dorsal pedis, posterior tibial, and popliteal. Carotid pulses are present without bruit or thrill. No edema in the bilateral lower extremities. ABDOMEN: Soft, nontender, or mass to palpate. Nondistended. Bowel sounds are present. MUSCULOSKELETAL: Able to move all extremities. SKIN: Warm and dry. No skin rash, lesion, or bruise noted. NEUROLOGIC: Alert, oriented x4, awake. Normal affect. Nonfocal. PSYCHIATRIC: Mood and affect are normal. EK-lead EKG at the emergency department showed sinus rhythm. No ST- segment change or T-wave depression. LABORATORY DATA: WBC 9.2, hemoglobin 10.8, hematocrit 31.8, platelets 200. Sodium 141, potassium 3.7, BUN 7, creatinine 0.64. Troponin less than 0.010, CK -MB 0.3. TSH is 0.7984. ASSESSMENT AND PLAN: 1. Bradycardia. Telemetry monitoring record showed she is in sinus arrhythmia with heart rates from 40-70s. The patient is asymptomatic. At this time, she has dizziness when she stands up. Other than that, she denies any lightheadedness or dizziness at this time. The patient's bradycardia is possible from anaphylaxis medication or possible form Solu-Medrol. She is not on any other medications, which caused the bradycardia. We would like to continue to monitor the patient's heart rate with heart rhythm with telemetry, and we would like to continue the current medication as long as the patient is asymptomatic. 2. Severe anaphylactic reaction to peanut butter smell. At this time, the patient is stable. We asked the nurses to put the sign to show no peanut butter , peanuts, or seafood in her room. Thank you very much for allowing Cardiology Service to participate in the care of the patient. We will follow along with the patient's care team and make further recommendations as appropriate. DARCY
[2017-03-23 07:48] LABS: Anion Gap 9 mmol/L (10-20); BUN (Urea Nitrogen) 7 mg/dL (7.0-18.7); Calc. Creatinine Clearance 205 mL/min (70-130); Calcium 8.6 mg/dL (7.8-10.44); Carbon Dioxide 23 mmol/L (22-29); Chloride 111 mmol/L (98-107); Estimated GFR-MDRD Greater than 90; Glucose 86 mg/dL (70-105); Potassium 3.5 mmol/L (3.5-5.1); Sodium 139 mmol/L (136-145)
[2017-03-23] MEDS: Ferrous Sulfate 325 MG TAB PO SCH (08:27)
[2017-03-23] MEDS: Sodium Chloride 0.9% 1,000 ML IV SCH (08:27)
[2017-03-23] MEDS: Ibuprofen 600 MG TAB PO PRN (08:27)
[2017-03-23] MEDS: predniSONE 20 MG TAB PO SCH (08:27)
--- NOTE | 2017-03-23 08:51 | PDOC.FM ---
- Subjective Subjective: Patient doing well this AM. She reports improvement with liquid swallowing yesterday. She is not reporting symptoms such as dizziness this morning. states she is ready to go home. - Objective MAR Reviewed: Yes Vital Signs & Weight: Vital Signs (12 hours) Temp Pulse Resp BP Pulse Ox 03/23/17 04:20 98.0 F 54 L 18 160/67 H 99 03/23/17 00:00 98.3 F 43 L 18 127/68 99 Most Recent Monitor Data Heart Rate from ECG 51 NIBP 122/64 NIBP BP-Mean 93 Respiration from ECG 19 SpO2 100 I&O: 03/22/17 03/23/17 03/24/17 06:59 06:59 06:59 Intake Total 193 360 Output Total 1465 1000 Balance 466 640 Result Diagrams: 03/22/17 01:14 03/23/17 07:26 EKG Reviewed by me: Yes <Philomena Jensen - Last Filed: 03/23/17 08:59> - Objective Vital Signs & Weight: Vital Signs (12 hours) Temp Pulse Resp BP Pulse Ox 03/23/17 08:52 98.1 F 43 L 14 138/74 93 L 03/23/17 08:38 98.1 F 54 L 14 93 L 03/23/17 04:20 98.0 F 54 L 18 160/67 H 99 03/23/17 00:00 98.3 F 43 L 18 127/68 99 Most Recent Monitor Data Heart Rate from ECG 51 NIBP 122/64 NIBP BP-Mean 93 Respiration from ECG 19 SpO2 100 I&O: 03/22/17 03/23/17 03/24/17 06:59 06:59 06:59 Intake Total 1931 360 Output Total 1465 1000 Balance 466 -476 Result Diagrams: 03/22/17 01:14 03/23/17 07:26 <Dejuan Park - Last Filed: 03/23/17 11:53> Phys Exam - Physical Examination Constitutional: NAD HEENT: moist MMs no uvular swelling, oropharynx normal in appearance. no stridor Respiratory: no wheezing, no rales, clear to auscultation bilateral Cardiovascular: no significant murmur reg rhythm, bradycardic Gastrointestinal: soft, non-tender, positive bowel sounds Musculoskeletal: no edema Neurological: non-focal, normal sensation, moves all 4 limbs <Philomena Jensen - Last Filed: 03/23/17 08:59> Dx/Plan (1) Anaphylactic reaction Code(s): T78.2XXA - ANAPHYLACTIC SHOCK, UNSPECIFIED, INITIAL ENCOUNTER Status : Acute Plan: Stable from anaphylactic standpoint. She has prednisone at home from earlier ER visit this week. She will take another day of prednisone to complete 5 days of steroids. She will follow up with Dr. Hernandez outpatient for allergy testing. (2) Symptomatic sinus bradycardia Code(s): R00.1 - BRADYCARDIA, UNSPECIFIED Status: Acute Plan: normal TSH. FL interval normal. QTC wnl. orthostatics wnl Not on medications at risk for bradycardia. Still remains bradycardic. await plan per cards but likely home later today. (3) Anxiety Code(s): F41.9 - ANXIETY DISORDER, UNSPECIFIED Status: Acute Plan: cont fluoxetine. <Philomena Jensen - Last Filed: 03/23/17 08:59> Attending Addendum - Attending Addendum I personally evaluated the patient and discussed the management with Dr. Jensen. I agree with and repeated the History, Examination, Assessment and Plan documented above with any addition or exceptions noted below. Await TTE. Follow up cards recs. Will need to see allergy as an outpatient. <Dejuan Park - Last Filed: 03/23/17 11:53>
[2017-03-23] MEDS ORDERED: Non-Formulary Item 1 EACH (Fluoxetine Hcl [Fluoxetine Hcl] 40 MG) PO SCH (09:00)
--- NOTE | 2017-03-23 09:21 | PDOC.CTH ---
<Baylee White - Last Filed: 03/23/17 09:27> Cardiology Progress Note - Subjective The pt seen and examined. No overnight events. She still complains of Vertigo- like dizziness (The pt described "room spinning" like dizziness with movement.) - Objective Vital Signs Temp Pulse Resp BP Pulse Ox 03/23/17 08:52 98.1 F 43 L 14 138/74 93 L 03/23/17 08:38 98.1 F 54 L 14 93 L 03/23/17 04:20 98.0 F 54 L 18 160/67 H 99 03/23/17 00:00 98.3 F 43 L 18 127/68 99 03/22/17 03/23/17 03/24/17 06:59 06:59 06:59 Intake Total 1931 360 Output Total 1465 1000 Balance 466 -640 - Physical Examination General/Neuro: alert & oriented x3 Neck: no JVD present Heart: RRR Abdomen: soft Extremities: other: (No edema) - Telemetry Telemetry Rhythm: SB 40-50s - Labs Result Diagrams: 03/22/17 01:14 03/23/17 07:26 Troponin/CKMB CK-MB (CK-2) 0.3 ng/mL (0-6.6) 03/22/17 01:14 Troponin I Less than 0.010 ng/mL (< 0.028) 03/22/17 01:14 - Assessment/Plan 1. Symptomatic SB - Still complains of dizziness with movement and even a few mins after standing up. However, her dizziness is more likely Vertigo- dizziness. Echo was ordered and the result is pending at this time. Cont. monitor on tele 2. Anaphylactic reaction - stable at this time. Managed by PCP 3. Anxiety - stable MAR reviewed Review of Systems - Review of Systems Constitutional: reports: weakness EENTM: reports: no symptoms reported Respiratory: reports: no symptoms reported Cardiac (ROS): reports: see HPI ABD/GI: reports: no symptoms reported : reports: no symptoms reported Musculoskeletal: reports: no symptoms reported <Obdulio Gutierrez - Last Filed: 03/23/17 14:24> Cardiology Progress Note - Objective Vital Signs Temp Pulse Resp BP BP Pulse Ox 03/23/17 12:00 98.5 F 43 L 16 128/63 100 03/23/17 08:52 98.1 F 43 L 14 138/74 93 L 03/23/17 08:38 98.1 F 54 L 14 93 L 03/23/17 04:20 98.0 F 54 L 18 160/67 H 99 03/22/17 03/23/17 03/24/17 06:59 06:59 06:59 Intake Total 1931 360 Output Total 1465 1000 Balance 466 -640 - Labs Result Diagrams: 03/22/17 01:14 03/23/17 07:26 Troponin/CKMB CK-MB (CK-2) 0.3 ng/mL (0-6.6) 03/22/17 01:14 Troponin I Less than 0.010 ng/mL (< 0.028) 03/22/17 01:14 - Assessment/Plan Pt. seen and eval. I agree with the A/P by the [employer]. Continue to observe for symptomatic bradycardia. If the HR increases with ambulation the she likely be safe for d/c.If not she may need to be observed for another 24 hrs.
[2017-03-23] MEDS: FLUoxetine HCl 20 MG CAP PO SCH (15:06)
[2017-03-23] MEDS: Acetaminophen 325 MG TAB PO PRN (23:55)
[2017-03-24] MEDS: Ibuprofen 600 MG TAB PO PRN (04:11)
--- NOTE | 2017-03-24 06:36 | PDOC.FM ---
- Subjective Subjective: Ms. Durán is feeling well this morning. She states she still gets a little dizzy when she gets up. She describes it as being lightheaded and denies the room spinning, ringing in her ears, vision changes or blacking out. She is otherwise feeling well and denies any n/v/abd pain/diarrhea. - Objective MAR Reviewed: Yes Vital Signs & Weight: Vital Signs (12 hours) Temp Pulse Resp BP BP Pulse Ox 03/24/17 03:45 98.3 F 48 L 16 125/62 98 03/24/17 00:04 98.6 F 51 L 12 101/64 99 03/23/17 20:50 98.6 F 52 L 16 99 03/23/17 20:07 98.6 F 52 L 16 112/76 99 Weight Weight 101.65 kg Most Recent Monitor Data Heart Rate from ECG 51 NIBP 122/64 NIBP BP-Mean 93 Respiration from ECG 19 SpO2 100 I&O: 03/22/17 03/23/17 03/24/17 06:59 06:59 06:59 Intake Total 9315 878 0500 Output Total 1465 1000 Balance 466 -640 1140 Result Diagrams: 03/22/17 01:14 03/23/17 07:26 EKG Reviewed by me: Yes <Melinda Yates - Last Filed: 03/24/17 12:37> - Objective Vital Signs & Weight: Weight Weight 101.65 kg Most Recent Monitor Data Heart Rate from ECG 51 NIBP 122/64 NIBP BP-Mean 93 Respiration from ECG 19 SpO2 100 Result Diagrams: 03/22/17 01:14 03/23/17 07:26 <Negro Weeks - Last Filed: 05/06/17 15:57> Phys Exam - Physical Examination Constitutional: NAD HEENT: moist MMs Neck: supple Respiratory: no wheezing, clear to auscultation bilateral Cardiovascular: no significant murmur bradycardic Gastrointestinal: soft, non-tender, positive bowel sounds Musculoskeletal: no edema, pulses present Neurological: non-focal, moves all 4 limbs Lymphatic: no nodes Psychiatric: normal affect, A&O x 3 Skin: cap refill <2 seconds <Melinda Yates - Last Filed: 03/24/17 12:37> Dx/Plan (1) Anxiety Code(s): F41.9 - ANXIETY DISORDER, UNSPECIFIED Status: Acute (2) Symptomatic sinus bradycardia Code(s): R00.1 - BRADYCARDIA, UNSPECIFIED Status: Acute (3) Anaphylactic reaction Code(s): T78.2XXA - ANAPHYLACTIC SHOCK, UNSPECIFIED, INITIAL ENCOUNTER Status : Acute - Plan Plan: 1. Symptomatic bradycardia - Appropriate rise in pulse with activity - Appreciate Dr. Gutierrez' assistance - Will monitor this morning and plan for D/C with outpatient cardiology f/u 2. Anaphylaxis - Resolved - F/u with Dr. Hernandez outpatient for allergy testing 3. Anxiety - Continue fluoxetine PPX: SCDs, ambulation. Will start lovenox if not d/c'd today <Melinda Yates - Last Filed: 03/24/17 12:37> Attending Addendum - Attending Addendum Date/Time: 05/06/17 [id number] I personally evaluated the patient and discussed the management with Dr. Yates I agree with the History, Examination, Assessment and Plan documented above with any addition or exceptions noted below. Bradycardia, anaphyliactoid reaction resolved/stabilized. OK to d/c home. <Negro Weeks - Last Filed: 05/06/17 15:57>
[2017-03-24 07:39] VITALS: TEMP 98.5
[2017-03-24] MEDS: Ferrous Sulfate 325 MG TAB PO SCH (08:39)
[2017-03-24] MEDS: FLUoxetine HCl 20 MG CAP PO SCH (08:39)
[2017-03-24] MEDS: predniSONE 20 MG TAB PO SCH (08:39)
[2017-03-24 12:13] VITALS: BP 101/56
--- NOTE | 2017-03-24 19:56 | DIS-2 ---
DATE OF ADMISSION: 03/20/2017 DATE OF DISCHARGE: 03/24/2017 RESIDENT: Melinda Yates M.D. ADMITTING ATTENDING: Luis Nguyen M.D. DISCHARGE ATTENDING: Negro Weeks M.D. CONSULTS: Dr. Luis with Pulmonology and Dr. Gutierrez with Cardiology. PROCEDURES: Echocardiogram pending. DISCHARGE DIAGNOSES: 1. Anaphylaxis 2. Symptomatic bradycardia. 3. Anxiety. 4. Iron deficiency anemia DISCHARGE MEDICATIONS: 1. Iron 325 mg p.o. daily. 2. Fluoxetine 40 mg p.o. daily. 3. Epinephrine 0.2 mg injected p.r.n. anaphylaxis or throat swelling. DISCONTINUED MEDICATIONS: None. HISTORY OF PRESENT ILLNESS AND HOSPITAL COURSE: Ms. Durán presented to the emergency room via EMS, already intubated after having a reported anaphylactic event at work secondary to inhalation of peanuts. She had given herself two rounds of injection of epinephrine pens prior to EMS arrival and was nonresponsive upon their arrival. She was transferred here and placed in the Intensive Care Unit where Dr. Luis was consulted and assisted with ventilation management. She was extubated promptly, but then shortly thereafter, she began to complain of some dizziness. Her heart rate was found to have downtrended to new baseline in the 40s. Dr. Gutierrez was consulted with Cardiology. Echocardiogram was performed which is pending at this time. She was monitored on telemetry and no arrhythmias were noted; and patient's pulse was appropriately responsive to activity. Prior to discharge, she was feeling well and no longer having any dizziness. She was instructed to follow up with her PCP within 1 week of discharge as well as Dr. Gutierrez for cardiology and Dr. Hernandez for further allergy management. DISPOSITION: Stable. DISPO: Discharged to home. DISCHARGE INSTRUCTIONS: 1. Location: Home. 2. Diet: Regular. 3. Activity: As tolerated. 4. Followup: With PCP within 1 week of discharge as well as Dr. Hernandez and Dr. Gutierrez within 1-2 weeks of discharge. [facility]OSPITALVernell
== END 2017-03-24 14:10 | disposition home or self-care (01) | DRG 916 ==
LOC: ERS 14:41 → CCU 15:32 → T4-B 03-21 18:42 → 2SE 03-22 02:57
PROVIDERS: ADMIT Family Medicine; ATTEND Family Medicine
PROC: 5A1935Z Respiratory Ventilation, Less than 24 Consecutive Hours (ICD-10-PCS; principal; 2017-03-20)
DX: T78.01XA Anaphylactic reaction due to peanuts, initial encounter (principal); E87.2 Acidosis; D50.9 Iron deficiency anemia, unspecified; Z91.010 Allergy to peanuts; Z91.013 Allergy to seafood; Z91.011 Allergy to milk products; Z91.048 Other nonmedicinal substance allergy status; R00.1 Bradycardia, unspecified; F41.9 Anxiety disorder, unspecified; E87.6 Hypokalemia
CPT/HCPCS: 36415; 51702; 80048; 80053; 80306; 81003; 82553; 82805; 83540; 83550; 84443; 84484; 85025; 93005; 93010; 93306; 94002; 94003; 96365; 96366; 96375; G8978-GP-CJ; G8979-GP-CJ; G8980-GP-CJ; G8996-GN-CH; G8996-GN-CI; G8997-GN-CH; J1200; J1885; J2270; J2405; J2704; J2930; J3010; J3360; J3480; J7050; J7506; S0028

== ENCOUNTER 2017-05-16 16:23 | Inpatient (IN) | payer BC ==
[2017-05-16] MEDS ORDERED: Succinylcholine Chloride 20 MG/ML 10 ml SYRINGE FS ONE (16:29)
[2017-05-16] MEDS ORDERED: methylPREDNISolone Sod Succ/PF 125 MG/2 ML VIAL ONE (16:29)
[2017-05-16] MEDS ORDERED: Famotidine/PF 20 mg/2ml Vial ONE (16:31)
[2017-05-16] MEDS ORDERED: Fentanyl 100 MCG/2 ML VIAL ONE (16:39)
[2017-05-16] MEDS ORDERED: Midazolam HCl 5 mg/ml Vial ONE (16:39)
[2017-05-16] MEDS ORDERED: Vecuronium 10 MG VIAL ONE (16:45)
[2017-05-16 16:52] LABS: #Eosinphils 0.4 thou/uL (0.0-0.7); #Neutrophils 5.7 thou/uL (1.40-6.50); %Basophils 0.4 % (0.0-1.0); %Eosinophils 3.9 % (0.0-10.0); %Lymphocytes 29.9 % (21.0-51.0); %Monocytes 9.5 % (0.0-10.0); %Neutrophils 56.3 % (42.0-75.0); Hemoglobin 11.8 g/dL (12.0-16.0); Mean Corpuscular HGB CONC 35.2 g/dL (32.0-36.0); Mean Corpuscular Hemoglobin 29.9 pg (27.0-31.0); Mean Corpuscular Volume 85.1 fl (81.0-99.0); Mean Platelet Volume 7.4 fL (7.4-10.4); Platelet Count 273 thou/uL (130-400); RBC Distribution Width 12.2 % (11.5-14.5); Red Blood Cell (RBC) Count 3.94 mill/uL (4.20-5.40); White Blood Cell (WBC) Count 10.1 thou/uL (4.8-10.8)
[2017-05-16 17:00] LABS: BHCG - Serum Negative (NEGATIVE); Pregs Control Background? CLEAR/WHITE (CLR/WHITE); Pregs Control Bar Appear? YES (CONTROL BAR)
[2017-05-16 17:07] LABS: ALT (SGPT) 11 U/L (8-55); AST (SGOT) 15 U/L (5-34); Alkaline Phosphatase 59 U/L (40-150); Anion Gap 12 mmol/L (10-20); BUN (Urea Nitrogen) 7 mg/dL (7.0-18.7); Bilirubin, Total 0.7 mg/dL (0.2-1.2); Calc. Creatinine Clearance 0 mL/min (70-130); Calcium 8.8 mg/dL (7.8-10.44); Carbon Dioxide 22 mmol/L (22-29); Chloride 104 mmol/L (98-107); Estimated GFR-MDRD Greater than 90; Globulin 3.4 g/dL (2.4-3.5); Glucose 105 mg/dL (70-105); Potassium 3.2 mmol/L (3.5-5.1); Protein, Total 7.4 g/dL (6.0-8.3); Sodium 135 mmol/L (136-145)
[2017-05-16 17:11] LABS: CKMB 0.6 ng/mL (0-6.6); Troponin I Less than 0.010 ng/mL (< 0.028)
[2017-05-16 17:15] LABS: Actual Bicarbonate (HCO3a) 20.3 mEq/L (22-26); Base Excess (BEa) -3.7 mEq/L (0 (+/-) 2.5); CO2 Tension 33.4 mmHg (35.0-45.0); Calcium, Ionized 1.1 mmol/L (1.12-1.30); Hematocrit-ABG 36.8 % (36.0-47.0); Hemoglobin (Hb) 11.3 g/dL (12.0-16.0); O2 Tension (PaO2) 130.6 mmHg (80.0-100.0)
[2017-05-16 17:16] LABS: Analyzer IN Cardio ER; Puncture Site LRA
[2017-05-16] MEDS ORDERED: Sedation Protocol FS ONE (17:18)
[2017-05-16] MEDS ORDERED: CCU Electrolyte Replacement 1 EACH FS ONE (17:18)
--- NOTE | 2017-05-16 17:25 | RAD ---
SUPINE PORTABLE CHEST: History: Assess ET tube. Intubation. FINDINGS: ET tube is in adequate position above the mark. NG tube has been placed and the tip overlies the up per gastric fundus. The lungs appear well aerated and clear with no infiltrate identified. Heart size is upper normal. No significant change from the prior exam of 03-20-17. IMPRESSION: ET tube and NG tube appear adequately positioned. No acute lung process identified. POS: [facility]
[2017-05-16] MEDS ORDERED: Albuterol Sulfate 2.5 mg/3 ml Neb ONE (17:29)
[2017-05-16 17:31] LABS: Bilirubin Negative (Negative); Blood, Urine Negative (Negative); Clarity CLEAR (Clear); Glucose, Urine (Dipstick) Negative (Negative); Leukocyte Negative (Negative); Nitrite Negative (Negative); Protein, Urine (Dipstick) Negative (Neg-Trace); Specific Gravity, Urine 1.009 (1.002-1.036); Urobilinogen 0.2 mg/dL (0.2-1.0)
[2017-05-16] MEDS ORDERED: Acetaminophen 325 MG TAB PO PRN (17:32)
[2017-05-16] MEDS ORDERED: Fentanyl BOLUS 250 ML IVPB PRN (17:45)
[2017-05-16] MEDS ORDERED: Lorazepam 2 MG/ML VIAL SLOW IVP PRN (17:45)
[2017-05-16] MEDS ORDERED: DISCONTINUE PREVIOUS NARCOTIC PAIN MEDICATIONS AND BENZODIAZEPINES FS SCH (17:45)
[2017-05-16] MEDS ORDERED: Morphine 2 MG/ML SYRINGE SLOW IVP PRN (17:45)
[2017-05-16] MEDS ORDERED: fentaNYL Citrate/PF 2,000 MCG in Sodium Chloride 0.9% 60 ML IV SCH (17:45)
[2017-05-16] MEDS ORDERED: Potassium Chloride 40 MEQ in Premix Bag 1 BAG IVPB PRN (17:46)
[2017-05-16] MEDS ORDERED: Potassium Chloride 20 MEQ TAB PO PRN (17:46)
[2017-05-16] MEDS ORDERED: Potassium Phosphate 12 MMOL in Sodium Chloride 0.9% 250 ML 250 ML IV PRN (17:46)
[2017-05-16] MEDS ORDERED: Magnesium 2 GM/NS 0.9% 100 ML 2 GM in Premix Bag 1 BAG IVPB PRN (17:46)
[2017-05-16] MEDS ORDERED: CCU ELECTROLYTE REPLACEMENT PROTOCOL FS PRN (17:46)
[2017-05-16] MEDS ORDERED: Potassium Phosphate 9 MMOL in Sodium Chloride 0.9% 100 ML IVPB PRN (17:46)
[2017-05-16] MEDS ORDERED: Potassium Phosphate 15 MMOL in Sodium Chloride 0.9% 250 ML 250 ML IV PRN (17:46)
[2017-05-16] MEDS ORDERED: Potassium Chloride 40 MEQ in Sodium Chloride 0.9% 250 ML 250 ML IVPB PRN (17:46)
[2017-05-16] MEDS ORDERED: Magnesium Oxide 400 MG TAB PO PRN ×2 (17:46)
--- NOTE | 2017-05-16 17:47 | PDOC.FPRHP ---
- History of Present Illness Chief Complaint: anaphylaxis History of Present Illness: 31 yo F with PMH of anemia, anxiety, and multiple allergies including anaphylactic reaction to peanuts requiring multiple intubations and hospitalizations presenting after feeling her throat closing up at work due to smelling peanuts around 3pm today. Patient reportedly self-administered her epi -pen after "smelling peanuts," then called EMS, who gave her a total of 2 nebulizers, 50mg nebulizers, 125mg solumedrol en route. Patient with similar admission in March of this year. Patient intubated and sedated during my exam. - Allergies/Adverse Reactions Allergies Allergy/AdvReac Type Severity Reaction Status Date / Time grass pollen Allergy Verified 03/21/17 02:13 milk Allergy Verified 03/21/17 02:13 mold Allergy Verified 03/21/17 02:13 peanut Allergy Verified 03/21/17 02:13 shellfish derived Allergy Verified 03/21/17 02:13 dust Allergy Uncoded 03/21/17 02:13 trees Allergy Uncoded 03/21/17 02:13 - Home Medications Medication Instructions Recorded Confirmed Type EPINEPHrine [Epipen] 0.3 mg IJ PRN PRN #2 auto.injct 03/23/17 Rx Ferrous Sulfate [Feosol] 325 mg PO QAM-WM #30 tab 03/23/17 Rx - History PMHx: anemia, anxiety PSHx: adenoidectomy, tonsillectomy, C/S x2 FHx: unable to obtain, none of significance noted on past records Social: unable to obtain - Review of Systems ROS unobtainable: due to endotracheal tube - Vital signs BP: [] HR: [] RR: [] Tmax: [] Pox: []% on [] Wt: [] - Physical Exam -Constitutional: intubated, sedated HEENT: PERRLA, MMM -HEENT: intubated -Heart: tachycardic Lungs: CTAB -Lungs: intubated, minimal bronchial breath sounds Abdomen: bowel sounds present, no masses/distention -Neurological: sedated Heme/Lymphatic: no unusual bruising or bleeding FMR H&P: Results - Labs Result Diagrams: 05/16/17 16:35 05/16/17 16:35 Lab results: WBC 10.1 thou/uL (4.8-10.8) 05/16/17 16:35 Hgb 11.8 g/dL (12.0-16.0) L 05/16/17 16:35 Hct 33.5 % (36.0-47.0) L 05/16/17 16:35 MCV 85.1 fl (81.0-99.0) 05/16/17 16:35 Plt Count 273 thou/uL (130-400) 05/16/17 16:35 Neutrophils % 56.3 % (42.0-75.0) 05/16/17 16:35 ABG pH 7.40 (7.35-7.45) 05/16/17 17:10 ABG pCO2 33.4 mmHg (35.0-45.0) L 05/16/17 17:10 ABG pO2 130.6 mmHg (80.0-100.0) H 05/16/17 17:10 Sodium 135 mmol/L (136-145) L 05/16/17 16:35 Potassium 3.2 mmol/L (3.5-5.1) L 05/16/17 16:35 Chloride 104 mmol/L (98-107) 05/16/17 16:35 Carbon Dioxide 22 mmol/L (22-29) 05/16/17 16:35 BUN 7 mg/dL (7.0-18.7) 05/16/17 16:35 Creatinine 0.73 mg/dL (0.6-1.1) 05/16/17 16:35 Glucose 105 mg/dL (70-105) 05/16/17 16:35 Calcium 8.8 mg/dL (7.8-10.44) 05/16/17 16:35 Total Bilirubin 0.7 mg/dL (0.2-1.2) 05/16/17 16:35 AST 15 U/L (5-34) 05/16/17 16:35 ALT 11 U/L (8-55) 05/16/17 16:35 Alkaline Phosphatase 59 U/L (40-150) 05/16/17 16:35 CK-MB (CK-2) 0.6 ng/mL (0-6.6) 05/16/17 16:35 Serum Total Protein 7.4 g/dL (6.0-8.3) 05/16/17 16:35 Albumin 4.0 g/dL (3.5-5.0) 05/16/17 16:35 Urine Ketones Negative mg/dL (Negative) 05/16/17 17:14 Urine Blood Negative (Negative) 05/16/17 17:14 Urine Nitrite Negative (Negative) 05/16/17 17:14 Ur Leukocyte Esterase Negative (Negative) 05/16/17 17:14 - EKG Interpretation EKG: sinus tachycardia FMR H&P: A/P - Problem List (1) Anaphylactic reaction Current Visit: No Status: Acute Code(s): T78.2XXA - ANAPHYLACTIC SHOCK, UNSPECIFIED, INITIAL ENCOUNTER Qualifiers: Encounter type: initial encounter Qualified Code(s): T78.2XXA - Anaphylactic shock, unspecified, initial encounter Assessment and Plan: Admit to CCU. Dr. Carlisle consulted, appreciate all of his recommendations. Continue steroids, pepcid, benadryl, IVFs. Anticipate extubation as she wakes up more, pending resolution of airway edema that exists. Continue sedation protocol. (2) Anxiety Current Visit: No Status: Acute Code(s): F41.9 - ANXIETY DISORDER, UNSPECIFIED Assessment and Plan: Unclear if she takes any medication for this at home. Would likely benefit from outpatient follow up. FMR H&P: Upper Level - Plan Date/Time: 05/16/17 1743 I, [], have evaluated this patient and agree with findings/plan as outlined by internal medicine physician resident. Pertinent changes/additions are listed here.
[2017-05-16] MEDS ORDERED: Propofol 1,000 MG/100 ML VIAL IV ONE (17:59)
[2017-05-16 20:15] VITALS: BMI 38.5
[2017-05-16] MEDS: Sodium Chloride 0.9% 1,000 ML IV SCH (20:34)
[2017-05-16] MEDS: diphenhydrAMINE 50 MG/ML VIAL IVP SCH ×2 (20:34→23:09)
[2017-05-16] MEDS: Propofol 1,000 MG/100 ML VIAL IV PRN ×2 (20:35→23:09)
[2017-05-16] MEDS ORDERED: Famotidine/PF 20 mg/2ml Vial SLOW IVP SCH (21:00)
--- NOTE | 2017-05-16 23:01 | CON ---
DATE OF CONSULTATION: 05/16/2017 CONSULTING PHYSICIAN: [facility]. REASON FOR CONSULTATION: Anaphylaxis with acute respiratory failure. HISTORY OF PRESENT ILLNESS: This patient is a 31-year-old female who has been seen by Dr. Luis in o group as recently as last month, at that time she was hospitalized for an identical presentation a s today. Apparently, she felt smoked some peanuts at work, she developed upper airway throat closing , excessive drooling and wheezing. She gave herself 2 rounds of EpiPen, paramedics also gave her froilan e epinephrine. She was given further dose of epinephrine here in the ER, did not respond and Dr. David stoner appropriately intubated her. PAST MEDICAL HISTORY: 1. 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 2. Previous episodes of respiratory failure secondary to anaphylaxis. 3. Anxiety. PAST SURGICAL HISTORY: 1. Tonsillectomy. 2. . SOCIAL HISTORY: Nonsmoker, nondrinker. 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 FAMILY MEDICAL HISTORY: Unremarkable. MEDICATIONS: Not known at this time. REVIEW OF SYSTEMS: Cannot be obtained as she is intubated. PHYSICAL EXAMINATION: VITAL SIGNS: Temperature 97, pulse 103, blood pressure 102/75, respiratory rate 14. GENERAL: The patient is intubated on mechanical ventilation. HEENT: Her tongue is mildly swollen. I do not see any lip swelling. NECK: Without adenopathy or JVD. LUNGS: Completely clear at this time with peak pressures on the ventilator of 18, plateau pressures of 14. CARDIOVASCULAR: S1, S2, slightly tachycardic. ABDOMEN: Soft, nontender, nondistended. EXTREMITIES: No clubbing, cyanosis, edema. NEUROLOGIC: Cannot be assessed as the patient is currently paralyzed. LABORATORY DATA: White blood cell count 10.1, hematocrit 33.5, platelet count 273. Sodium 135, pota ssium 3.2, chloride 104, CO2 of 22, BUN 7, creatinine 0.7, glucose 105. Chest x-ray demonstrates pro per ET tube position, no evidence of pulmonary infiltrates. ASSESSMENT: 1. Anaphylaxis/anaphylactoid reaction secondary to inhaling peanut dust. 2. Acute respiratory failure. PLAN: She will be left intubated overnight, she will receive IV steroids, IV Pepcid and IV Benadryl. Hopefully, she can be extubated tomorrow if she passes a leak test. I will inform Dr. Luis the selina cordero's hospitalization.
[2017-05-17 03:54] LABS: #Lymphocytes 0.4 thou/uL (1.20-3.40); #Monocytes 0.1 thou/uL (0.11-0.59); #Neutrophils 4.2 thou/uL (1.40-6.50); %Eosinophils 0.2 % (0.0-10.0); %Monocytes 1.7 % (0.0-10.0); %Neutrophils 89.1 % (42.0-75.0); Hemoglobin 10.7 g/dL (12.0-16.0); Mean Corpuscular HGB CONC 34.1 g/dL (32.0-36.0); Mean Corpuscular Volume 85.1 fl (81.0-99.0); Mean Platelet Volume 7.6 fL (7.4-10.4); Platelet Count 239 thou/uL (130-400); RBC Distribution Width 12.3 % (11.5-14.5); Red Blood Cell (RBC) Count 3.67 mill/uL (4.20-5.40); White Blood Cell (WBC) Count 4.7 thou/uL (4.8-10.8)
[2017-05-17 04:25] LABS: Anion Gap 10 mmol/L (10-20); BUN (Urea Nitrogen) 5 mg/dL (7.0-18.7); Calc. Creatinine Clearance 237 mL/min (70-130); Calcium 8.3 mg/dL (7.8-10.44); Carbon Dioxide 20 mmol/L (22-29); Chloride 112 mmol/L (98-107); Estimated GFR-MDRD Greater than 90; Glucose 127 mg/dL (70-105); Potassium 3.9 mmol/L (3.5-5.1); Sodium 138 mmol/L (136-145)
[2017-05-17] MEDS: diphenhydrAMINE 50 MG/ML VIAL IVP SCH (05:11)
[2017-05-17] MEDS: Sodium Chloride 0.9% 1,000 ML IV SCH ×2 (05:11→08:04)
[2017-05-17] MEDS: Propofol 1,000 MG/100 ML VIAL IV PRN (05:11)
--- NOTE | 2017-05-17 06:58 | PDOC.FM ---
- Subjective Subjective: PAUL overnight, VSS. Pt intubated this AM but able to nod head and follow commands. Denies any pain. - Objective MAR Reviewed: Yes Vital Signs & Weight: Vital Signs (12 hours) Temp Pulse Resp BP Pulse Ox 05/17/17 06:00 19 05/17/17 04:18 84 99/47 L 05/17/17 04:17 100 05/17/17 04:00 98.2 F 14 05/17/17 02:00 21 H 05/17/17 00:00 98.0 F 20 05/16/17 22:24 92 05/16/17 22:23 100 05/16/17 22:00 14 05/16/17 20:00 98.8 F 104 H 14 100 05/16/17 19:12 103 H 114/69 05/16/17 19:10 100 Weight Weight 101.2 kg Most Recent Monitor Data Heart Rate from ECG 78 NIBP 101/60 NIBP BP-Mean 75 Respiration from ECG 16 SpO2 100 I&O: 05/15/17 05/16/17 05/17/17 06:59 06:59 06:59 Intake Total 1859 Output Total 2475 Balance -616 Result Diagrams: 05/17/17 03:22 05/17/17 03:22 <Dejuan Rivera K - Last Filed: 05/17/17 06:56> - Objective Vital Signs & Weight: Vital Signs (12 hours) Temp Pulse Resp BP Pulse Ox 05/17/17 07:48 98.2 F 72 18 05/17/17 07:47 98.2 F 05/17/17 07:41 70 113/58 L 05/17/17 06:00 19 05/17/17 04:18 84 99/47 L 05/17/17 04:17 100 05/17/17 04:00 98.2 F 14 05/17/17 02:00 21 H 05/17/17 00:00 98.0 F 20 Weight Weight 101.2 kg Most Recent Monitor Data Heart Rate from ECG 93 NIBP 105/66 NIBP BP-Mean 88 Respiration from ECG 14 SpO2 100 I&O: 05/16/17 05/17/17 05/18/17 06:59 06:59 06:59 Intake Total 1860.7 94.7 Output Total 2475 600 Balance -614.3 -505.3 Result Diagrams: 05/17/17 03:22 05/17/17 03:22 <Negro Weeks - Last Filed: 05/17/17 10:47> Phys Exam - Physical Examination Constitutional: NAD HEENT: PERRLA, moist MMs Intubated Respiratory: clear to auscultation bilateral Cardiovascular: RRR, no significant murmur Gastrointestinal: soft, no distention, positive bowel sounds Musculoskeletal: no edema, pulses present Neurological: moves all 4 limbs follows commands Deviation from normal: unable to assess 2/2 intubated Skin: cap refill <2 seconds <Dejuan Rivera - Last Filed: 05/17/17 06:56> Dx/Plan (1) Anaphylactic reaction Code(s): T78.2XXA - ANAPHYLACTIC SHOCK, UNSPECIFIED, INITIAL ENCOUNTER Status : Acute QualifierTitle: Encounter type: initial encounter Qualified Code(s): T78.2XXA - Anaphylactic shock, unspecified, initial encounter Plan: Pt intubated s/p continued sxs s/p receiving multiple doses of epinephrine and steroids in EMS and ER yesterday for airway protection VSS this AM Pulm on board, appreciate recs Will likely attempt leak test this AM and subsequent extubation pending results Cont. to monitor in ICU s/p extubation (2) Anxiety Code(s): F41.9 - ANXIETY DISORDER, UNSPECIFIED Status: Acute Plan: It does not appear pt is on any medications for this Will cont. to monitor and use PRNs as necessary during her hospitalization <Dejuan Rivera - Last Filed: 05/17/17 06:56> Attending Addendum - Attending Addendum Date/Time: 05/17/17 1034 I personally evaluated the patient and discussed the management with Dr. Rivera I agree with the History, Examination, Assessment and Plan documented above with any addition or exceptions noted below. Extubated this morning. Will continue to monitor due to concern for biphasic anaphylactic reaction. Will continue steroid treatment. Appreciate pulmonology recommendations regarding transfer out of CCU. Will contact Dr. Verduzco ( [employer]) to see if any further options are available for peanut allergy desensitization. If not, encouraged patient to seek treatment at a [facility]. Anticipate discharge tomorrow. <Negro Weeks - Last Filed: 05/17/17 10:47>
[2017-05-17 07:43] VITALS: BP 113/58
[2017-05-17 07:55] LABS: Actual Bicarbonate (HCO3a) 20.3 mEq/L (22-26); CO2 Tension 38.4 mmHg (35.0-45.0); Calcium, Ionized 1.2 mmol/L (1.12-1.30); Hematocrit-ABG 32.5 % (36.0-47.0); Hemoglobin (Hb) 10.5 g/dL (12.0-16.0); O2 Tension (PaO2) 114.3 mmHg (80.0-100.0); Puncture Site RR; pH, Arterial 7.34 (7.35-7.45)
[2017-05-17] MEDS ORDERED: Famotidine 20 MG TAB PER TUBE SCH (09:00)
[2017-05-17] MEDS ORDERED: Enoxaparin Sodium 40 MG/0.4 ML SYRINGE SC SCH (09:00)
--- NOTE | 2017-05-17 09:57 | RAD ---
AP VIEW OF THE CHEST: INDICATION: Intubation. COMPARISON: Prior exam dated 05/16/17. FINDINGS: There has been interval placement of a gastric catheter projecting in the region of the gastric fundu s. The ET tube is unchanged in position. The patient is heavily rotated limiting exam. No focal co nsolidation or gross hemithorax is evident. IMPRESSION: 1. New gastric catheter. 2. Endotracheal tube tip is unchanged. 3. Heavily rotated exam limiting study. No gross focal consolidation or pneumothorax. POS: [facility]
[2017-05-17 13:25] VITALS: TEMP 98
--- NOTE | 2017-05-18 08:54 | PRG ---
DATE OF SERVICE: 05/17/2017 SUBJECTIVE: Ms. Durán was evaluated this morning. She did not have a prolonged expiratory phase. She had no tongue swelling. She had a very loud leak test. OBJECTIVE: VITAL SIGNS: Stable overnight. GENERAL: She is awake and alert, moving all of her extremities. LUNGS: Completely clear. CARDIOVASCULAR: Regular rhythm. ABDOMEN: Soft. EXTREMITIES: With asymmetry. LABORATORY DATA: Showed a white count 4.7, hemoglobin 10.7, Sodium 138, potassium 3.9, chloride 112 , bicarbonate 20, BUN 5, creatinine 0.57. A pH 7.34, CO2 of 38, pO2 of 114. IMPRESSION: Status post intubation. Again, this was an event associated with a smell. I contacted Dr. Verduzco at [facility] who saw her in 2014. She did have a class IV allergic reaction to PEANUTS. If she gets desensitization, it would have to be done in [place] by Dr. Henley or one other physici an that does that up there. As I explained to Ms. Durán and as Dr. Verduzco reviewed with me inhaling smell of peanuts will not create anaphylaxis. I did explain to her that if she sticks herself twice with 2 EpiPens and then calls an ambulance and may stick her with more epinephrine by the time she g ets to the emergency room, she will be very tachycardia, anxious, hypertensive and probably tachypnei c. The intubating physician in the emergency room did remark to Dr. Carlisle that he did not see any uppe r airway edema at the time of intubation. I think that this is more her reaction to the smell of peanuts and then her subsequent actions with e pinephrine than it is a true anaphylactic reaction. I felt she was stable for discharge found kassidy mccullough on exam. After she was successfully extubated, do indicate ongoing bronchospasm or hemodynamic ins tability consistent with an anaphylactic reaction. She tapered off her prednisone relatively quickly as I explained to the residents. I will see her as needed in the future. Critical care time 40 minutes.
--- NOTE | 2017-05-18 14:15 | DIS-2 ---
ADMISSION DATE: 05/16/2017 DISCHARGE DATE: 05/17/2017 ADMITTING ATTENDING: Dr. Weeks. DISCHARGE ATTENDING: Dr. Weeks. RESIDENT: Dr. Dejuan Rivera. CONSULTATIONS: Dr. Luis, Pulmonology. PROCEDURES: 1. Endotracheal intubation. 2. Endotracheal extubation. PRIMARY DIAGNOSIS: Anaphylaxis secondary to peanut allergy. SECONDARY DIAGNOSIS: Anxiety. DISCHARGE MEDICATIONS: 1. Prednisone 10 mg tablets per taper over a 5-day period with 40 mg a day 1, and 20 mg a day 2 and 3, and 10 mg day 4 and 5. 2. EpiPen 0.3 mg per injection as needed for anaphylaxis and throat swelling. 3. Trazodone 100 mg p.o. at bedtime. 4. Iron 325 mg p.o. q. day. 5. Fluoxetine 40 mg p.o. q .day. 6. Alprazolam 0.25 mg p.o. b.i.d. p.r.n. for anxiety. DISCONTINUED MEDICATIONS: None. HISTORY OF PRESENT ILLNESS: Patient is a 31-year-old female who presented to the ER with a past medi talia history pertinent for multiple allergies including ANAPHYLAXIS TOWARDS PEANUTS, SHELLFISH, requir ing multiple intubations or hospitalizations in the past, presenting after feeling her throat closing up at work due to smelling PEANUTS around 3:00 p.m. the day of admission. Reportedly, the patient s elf-administered her EpiPen x2, after swallowing these PEANUTS and then called EMS for further evalua tion. Enroute, she obtained 2 nebulizers, 125 mg Solu-Medrol and once arriving to the ER, was subseq uently intubated after concerns for upper airway collapse. Patient was admitted to ICU status post e ndotracheal intubation and received H1 and H2 blockers in addition to Solu-Medrol. She received on r oute to the ER. Patient remained stable on vent and passed the leak test the following morning and w as successfully extubated. Upon discussion with family, patient has seen Dr. Verduzco of allergy immun ology in the past; however, he is unable do any allergy desensitization. Dr. Verduzco was contacted by Dr. Luis and myself with recommendations to send patient to Dr. Henley in [place] for allergy mumtaz ensitization to PEANUTS. The patient was sent home on a prednisone taper and a refill from her EpiPe n. Patient was stable from a cardiopulmonary standpoint prior to discharge home. The patient is to follow up with primary care provider and allergy/immunology in outpatient setting. DISPOSITION: Stable. DISCHARGE INSTRUCTIONS: 1. Location: Home. 2. Followup: Follow up with primary care provider in next few days. Follow up with Dr. Henley, Allergy/Immunology in the next 7 days. 3. Activity: Cardiopulmonary limits.
--- NOTE | 2017-05-19 19:59 | EKG ---
Test Reason : Blood Pressure : / mmHG Vent. Rate : 101 BPM Atrial Rate : 101 BPM P-R Int : 150 ms QRS Dur : 096 ms QT Int : 360 ms P-R-T Axes : 057 065 039 degrees QTc Int : 466 ms Sinus tachycardia Possible Left atrial enlargement Nonspecific ST and T wave abnormality Abnormal ECG Confirmed by HUGO SWARTZ ([id number]), editor publications WERNER DURAN ([id number]) on 05/19/2017 7:59:28 PM Referred By: Confirmed By:HUGO SWARTZ
== END 2017-05-17 17:20 | disposition home or self-care (01) | DRG 915 ==
LOC: ERS 16:23 → CCU 18:25
PROVIDERS: ADMIT Family Medicine; ATTEND Family Medicine
PROC: 0BH17EZ Insertion of Endotracheal Airway into Trachea, Via Natural or Artificial Opening (ICD-10-PCS; principal; 2017-05-16)
PROC: 5A1935Z Respiratory Ventilation, Less than 24 Consecutive Hours (ICD-10-PCS; 2017-05-16)
DX: T78.2XXA Anaphylactic shock, unspecified, initial encounter (principal); J96.00 Acute respiratory failure, unspecified whether with hypoxia or hypercapnia; F41.9 Anxiety disorder, unspecified; Z91.010 Allergy to peanuts
CPT/HCPCS: 36415; 71045; 80048; 80053; 81003; 82553; 82805; 83519; 84484; 84703; 85025; 93005; 94002; 94003; 94640; 94760; J1200; J1650; J2060; J2250; J2704; J2920; J2930; J3010; J3480; J7050; J7611; J7620; S0028

== ENCOUNTER 2017-05-27 16:56 | Observation (INO) | payer BC ==
[2017-05-27] MEDS ORDERED: diphenhydrAMINE 50 MG/ML VIAL ONE (17:29)
[2017-05-27] MEDS ORDERED: Lorazepam 2 MG/ML VIAL ONE (17:30)
[2017-05-27] MEDS ORDERED: Famotidine 20 MG TAB ONE (17:30)
[2017-05-27 17:34] LABS: #Basophils 0.1 thou/uL (0.0-0.2); #Eosinphils 0.2 thou/uL (0.0-0.7); #Lymphocytes 2.4 thou/uL (1.20-3.40); #Monocytes 0.9 thou/uL (0.11-0.59); %Basophils 0.9 % (0.0-1.0); %Eosinophils 2.6 % (0.0-10.0); %Lymphocytes 24.8 % (21.0-51.0); %Monocytes 9.5 % (0.0-10.0); %Neutrophils 62.3 % (42.0-75.0); Hemoglobin 11.5 g/dL (12.0-16.0); Mean Corpuscular HGB CONC 33.8 g/dL (32.0-36.0); Mean Corpuscular Hemoglobin 29.2 pg (27.0-31.0); Mean Corpuscular Volume 86.3 fl (81.0-99.0); Mean Platelet Volume 7.3 fL (7.4-10.4); Platelet Count 259 thou/uL (130-400); RBC Distribution Width 12.5 % (11.5-14.5); Red Blood Cell (RBC) Count 3.94 mill/uL (4.20-5.40); White Blood Cell (WBC) Count 9.6 thou/uL (4.8-10.8)
[2017-05-27 17:55] LABS: ALT (SGPT) 10 U/L (8-55); AST (SGOT) 13 U/L (5-34); Albumin 3.7 g/dL (3.5-5.0); Alkaline Phosphatase 61 U/L (40-150); Anion Gap 10 mmol/L (10-20); BUN (Urea Nitrogen) 6 mg/dL (7.0-18.7); Bilirubin, Total 0.4 mg/dL (0.2-1.2); Calc. Creatinine Clearance 0 mL/min (70-130); Calcium 8.7 mg/dL (7.8-10.44); Carbon Dioxide 20 mmol/L (22-29); Chloride 110 mmol/L (98-107); Estimated GFR-MDRD Greater than 90; Glucose 148 mg/dL (70-105); Potassium 3.2 mmol/L (3.5-5.1); Protein, Total 6.7 g/dL (6.0-8.3); Sodium 137 mmol/L (136-145)
[2017-05-27] MEDS ORDERED: Sodium Chloride 0.9% 1,000 ML IV SCH (19:45)
--- NOTE | 2017-05-27 19:58 | PDOC.FPRHP ---
- History of Present Illness Chief Complaint: Allergic reaction to peanuts History of Present Illness: This is a 31 yo F w/hx of anaphylactic reaction to peanuts and anxiety here with cc of feeling of throat swelling after smelling something being cooked in an adjacent apartment. At the time of the H&P pt was unable/unwilling to talk due to feeling like she could not swallow. Through communicating with her mother , pt noticed symptoms consistent with previous anaphylactic reactions, specifically throat swelling/fullness, and decided to call EMS after dosing herself with her epipen. Pt denies SOB, chest pain, or chest tightness. In the ED she was given diphenhydramine and ativan for anxiety. She had no decreased for of breathing and was maintaining O2 sat without supplemental O2. - Allergies/Adverse Reactions Allergies Allergy/AdvReac Type Severity Reaction Status Date / Time grass pollen Allergy Verified 03/21/17 02:13 milk Allergy Verified 03/21/17 02:13 mold Allergy Verified 03/21/17 02:13 peanut Allergy Verified 03/21/17 02:13 shellfish derived Allergy Verified 03/21/17 02:13 dust Allergy Uncoded 03/21/17 02:13 trees Allergy Uncoded 03/21/17 02:13 - Home Medications Medication Instructions Recorded Confirmed Type EPINEPHrine [Epipen] 0.3 mg IJ PRN PRN #2 auto.injct 03/23/17 05/27/17 Rx ALPRAZolam [Xanax] 0.25 mg PO BID PRN 05/17/17 05/27/17 History FLUoxetine HCl [Prozac] 40 mg PO DAILY 05/17/17 05/27/17 History traZODone HCl [Trazodone HCl] 100 mg PO HS 05/17/17 05/27/17 History diphenhydrAMINE [Benadryl] 25 mg PO DAILY 05/27/17 05/27/17 History Ferrous Sulfate [Iron] 325 mg PO DAILY 05/28/17 05/28/17 History - History PMHx: Multiple episodes of anaphylactic reaction requiring intubation following exposure to peanuts anxiety PSHx: None FHx: Maternal HTN Social: Denies etoh, tobacco, recreational drug use - Review of Systems General: denies: fever/chills, weight/appetite/sleep changes Eyes: denies: vision changes ENT: denies: nasal congestion Respiratory: denies: shortness of breath (Complains of feeling of throat swelling, however denies specific SOB) Cardiovascular: denies: chest pain, palpitation Gastrointestinal: denies: nausea, vomiting Skin: denies: rashes, lesions Musculoskeletal: denies: pain, tenderness, stiffness Neurological: denies: numbness, syncope, seizure Psychological: reports: anxiety, depression - Vital signs BP: 136/85 HR: 108 RR: 20 Tmax: 99.4 Pox: 98% on RA Wt: 99 kg - Physical Exam Constitutional: NAD, awake, alert and oriented HEENT: normocephalic and atraumatic, PERRLA, EOMI Neck: supple, FROM, trachea midline Chest: no-tender to palpation Heart: normal S1/S2, no murmurs/rubs/gallops, other (Tachycardic) Lungs: CTAB, no respiratory distress, good air movement, no rales/rhonchi, no wheezing, no retractions Abdomen: soft, non-tender, bowel sounds present Musculoskeletal: normal structure, normal tone Neurological: no focal deficit, CN II-XII intact Skin: no rash/lesions, good turgor Heme/Lymphatic: no unusual bruising or bleeding Psychiatric: normal mood and affect FMR H&P: Results - Labs Result Diagrams: 05/27/17 17:21 05/28/17 04:25 Lab results: WBC 9.6 thou/uL (4.8-10.8) 05/27/17 17:21 Hgb 11.5 g/dL (12.0-16.0) L 05/27/17 17:21 Hct 34.0 % (36.0-47.0) L 05/27/17 17:21 MCV 86.3 fl (81.0-99.0) 05/27/17 17:21 Plt Count 259 thou/uL (130-400) 05/27/17 17:21 Neutrophils % 62.3 % (42.0-75.0) 05/27/17 17:21 Sodium 137 mmol/L (136-145) 05/27/17 17:21 Potassium 3.2 mmol/L (3.5-5.1) L 05/27/17 17:21 Chloride 110 mmol/L (98-107) H 05/27/17 17:21 Carbon Dioxide 20 mmol/L (22-29) L 05/27/17 17:21 BUN 6 mg/dL (7.0-18.7) L 05/27/17 17:21 Creatinine 0.70 mg/dL (0.6-1.1) 05/27/17 17:21 Glucose 148 mg/dL (70-105) H 05/27/17 17:21 Calcium 8.7 mg/dL (7.8-10.44) 05/27/17 17:21 Total Bilirubin 0.4 mg/dL (0.2-1.2) 05/27/17 17:21 AST 13 U/L (5-34) 05/27/17 17:21 ALT 10 U/L (8-55) 05/27/17 17:21 Alkaline Phosphatase 61 U/L (40-150) 05/27/17 17:21 Serum Total Protein 6.7 g/dL (6.0-8.3) 05/27/17 17:21 Albumin 3.7 g/dL (3.5-5.0) 05/27/17 17:21 - EKG Interpretation EKG: ST 123 bpm, possible L atrial enlargement FMR H&P: A/P - Problem List (1) Anaphylactic reaction Current Visit: Yes Status: Acute Priority: High Code(s): T78.2XXA - ANAPHYLACTIC SHOCK, UNSPECIFIED, INITIAL ENCOUNTER Qualifiers: Encounter type: initial encounter Qualified Code(s): T78.2XXA - Anaphylactic shock, unspecified, initial encounter (2) Sinus tachycardia Current Visit: Yes Status: Acute Priority: Medium Code(s): R00.0 - TACHYCARDIA, UNSPECIFIED (3) Hypokalemia Current Visit: Yes Status: Acute Priority: Medium Code(s): E87.6 - HYPOKALEMIA (4) Anxiety Current Visit: Yes Status: Chronic Priority: Medium Code(s): F41.9 - ANXIETY DISORDER, UNSPECIFIED (5) Anemia Current Visit: Yes Status: Chronic Priority: Medium Code(s): D64.9 - ANEMIA, UNSPECIFIED Qualifiers: Anemia type: unspecified type Qualified Code(s): D64.9 - Anemia, unspecified - Plan Anaphylactic reaction - Unclear exactly what pt was exposed to, however patient states that she feels similar to when she is exposed to peanuts - currently pt is breathing easily and in no acute distress. O2 sat 95% on RA - Admit to tele, schedule duonebs, start steroids. Epi prn - Make NPO until cleared by ST due to throat swelling - In outpt setting pt will need allergy follow up for better control Sinus tach - likely secondary to epi. Will monitor on tele as above Anxiety - likely a contributing factor to symptoms - will continue home meds - recommend outpatient follow up with PCP Hypokalemia - replace IV - recheck BMP in am Anemia - stable and asymptomatic - continue home iron when she is cleared for PO PPx lovenox Diet NPO until cleared by bedside swallow Code Full Dispo: Pt is currently stable and in no acute distress. Continue to obs for resolution of symptoms. Likely LOS 24-48 hours FMR H&P: Upper Level - Pertinent history CC: Throat Tightness 31 year old female with a known history of anaphylactic reactions to peanuts and shellfish. She is allergic to shellfish and could smell her neighbors cooking some sort of shellfish tonight. She felt her throat closing up and she had a hard time swallowing. She also reports chills. She denies headache, CP, SOB, wheezing, cough, AP, N/V/D. She is also diagnosed with anxiety treated with fluoxetine, trazodone, and Xanax. She gave herself 1 dose of Epi at home and her kids called EMS. Pt was given 125mg Solumedrol, 1 duoneb, and epi en route. In the ED she was seen by Dr. Greco and given 1mg Ativan, 2L NS, and 25 mg diphenhydramine. PMH - Anemia, anxiety PSH - Adenoidectomy and tonsillectomy She has been referred to an conference concierge in [place] but has not seen him because she was told he did not see patients over age 17. - Pertinent findings Vital Signs Tmax 99.5 RR 20 HR 112 BP 140/70 O2 Sats 97% on RA Weight 99.3 kg Physical Exam Gen: NAD. Patient awake and alert. She does not attempt to answer questions verbally at all. She has been answering questions yes and no by nodding/shaking her head. Her mother is at bedside and has helped with providing a history. Eyes: PERRL, EOMI, nonicteric ENT: MMM, oropharynx clear; no swelling of lips, tongue, or throat apparent on my exam CV: Tachycardic but regular rhythm. No murmurs, rubs, or gallops auscultated. Capillary refill <2 seconds. Resp: Regular respiratory rate. Not tachypneic. Lungs CTA-B. No wheezing, rales , or rhonchi. No stridor. Breathing not labored. Abdomen: Nontender, nondistended, no guarding/rebound Ext: No edema. Equal movements bilaterally Skin: No rash, ulcer, urticaria, or palpable lesions apparent Neuro: CN II - XII intact. No focal defcitis Psych: Affect guarded - Plan Date/Time: 05/27/171957 I, Justen Ortiz DO, have evaluated this patient and agree with findings/plan as outlined by statistics intern resident. Pertinent changes/additions are listed here. 31 year old female with a past medical history of anaphylaxis, anemia, and anxiety p/w: 1) Suspected anaphylactic reaction to shellfish - Place in telemetry. Patient not currently in respiratory distress and no facial or oropharyngeal swelling is apparent on exam. She denies all symptoms of distress other than throat swelling. She has a regular respiratory rate, all other vitals normal, no stridorous breathing, and is maintaining oxygen saturation above 95% on room air. Continue steroids. Epinephrine prn symptoms of further anaphylaxis. Monitor closely. Patient has been intubated for this in the past but that does not appear necessary at this time. Patient needs outpatient follow up with conference concierge. There may be an anxiety component as patient is frequently admitted for this and her affect is guarded with her not even attempting to talk or open her mouth. 2) Hypokalemia - Will treat with iv potassium 3) Anxiety - Hold home meds until able to take po 4) Anemia - Hold home meds until able to take po 5) Code Status - Full Attending Addendum - Attending Addendum Date/Time: 05/28/17 0724 I personally evaluated the patient and discussed the management with Dr. Thompson I agree with the History, Examination, Assessment and Plan documented above with any addition or exceptions noted below- 31 yo female with h/o severe allergic reactions/anaphylaxis to peanuts and seafood presented c/o difficulty swallowing after smelling seafood that a neighbor was cooking. She gave herself her epinephrine and called EMS. She received solumedrol and duoneb in ambulance. She denies any SOB, cough, wheezing. She reports that she feels like she can't swallow. Has h/o intubations in past. PMH/PSH/All/Meds/SH reviewed and agree with resident's documentation. Afebrile P90 BP 126/80 RR18 97% on RA Exam repeated by me and agree with resident's findings. A/P: Allergic reaction- no evidence of hemodynamic or respiratoy compromise. Patient able to manage her secretions without difficulty. Continue IV steroids, duonebs. Probable d/c home in AM.
[2017-05-27 20:29] VITALS: BMI 39.8
[2017-05-27] MEDS ORDERED: Magnesium Sulfate 3 GM in Sodium Chloride 0.9% 100 ML IVPB SCH (22:00)
[2017-05-27] MEDS ORDERED: Potassium Chloride 40 MEQ in Sodium Chloride 0.9% 500 ML IVPB SCH (22:00)
[2017-05-27] MEDS: Dexamethasone 10 MG in Sodium Chloride 0.9% 50 ML IVPB SCH (23:18)
[2017-05-28] MEDS ORDERED: ALPRAZolam 0.25 MG TAB PO PRN (02:52)
[2017-05-28] MEDS: Dexamethasone 10 MG in Sodium Chloride 0.9% 50 ML IVPB SCH (04:57)
[2017-05-28 05:53] LABS: Anion Gap 10 mmol/L (10-20); BUN (Urea Nitrogen) 5 mg/dL (7.0-18.7); Calc. Creatinine Clearance 251 mL/min (70-130); Calcium 8.6 mg/dL (7.8-10.44); Carbon Dioxide 18 mmol/L (22-29); Chloride 114 mmol/L (98-107); Estimated GFR-MDRD Greater than 90; Glucose 128 mg/dL (70-105); Magnesium 2.3 mg/dL (1.6-2.6); Potassium 4.2 mmol/L (3.5-5.1); Sodium 138 mmol/L (136-145)
[2017-05-28] MEDS ORDERED: Dexamethasone 10 MG in Sodium Chloride 0.9% 50 ML IVPB SCH (09:00)
[2017-05-28] MEDS: FLUoxetine HCl 20 MG CAP PO SCH (09:03)
[2017-05-28] MEDS: diphenhydrAMINE 25 MG CAP PO SCH (09:03)
[2017-05-28] MEDS: Ferrous Sulfate 325 MG TAB PO SCH ×2 (09:03→09:22)
[2017-05-28] MEDS: Enoxaparin Sodium 40 MG/0.4 ML SYRINGE SC SCH (09:04)
[2017-05-28] MEDS ORDERED: predniSONE 20 MG TAB PO SCH ×2 (10:54→12:30)
--- NOTE | 2017-05-28 10:55 | PDOC.FM ---
- Subjective Subjective: CC: Difficulty swallowing HPI: States her breathing has improved but still having difficulty swallowing. Was choking on water during attending rounds. States she is frustrated with her overall medical condition. Agrees to see speech therapy. - Objective MAR Reviewed: Yes Vital Signs & Weight: Vital Signs (12 hours) Temp Pulse Resp BP BP Pulse Ox 05/28/17 08:00 98 F 52 L 20 05/28/17 07:38 98 F 52 L 20 116/64 98 05/28/17 05:25 97 05/28/17 04:59 97.9 F 70 16 120/82 97 Weight Weight 105.233 kg I&O: 05/27/17 05/28/17 05/29/17 06:59 06:59 06:59 Intake Total 966 Balance 966 Result Diagrams: 05/27/17 17:21 05/28/17 04:25 <Nick Church W - Last Filed: 05/28/17 10:52> - Objective Vital Signs & Weight: Vital Signs (12 hours) Temp Pulse Resp BP BP Pulse Ox 05/28/17 11:20 98.3 F 55 L 18 110/66 98 05/28/17 08:00 98 F 52 L 20 05/28/17 07:38 98 F 52 L 20 116/64 98 05/28/17 05:25 97 05/28/17 04:59 97.9 F 70 16 120/82 97 Weight Weight 105.233 kg I&O: 05/27/17 05/28/17 05/29/17 06:59 06:59 06:59 Intake Total 966 Balance 966 Result Diagrams: 05/27/17 17:21 05/28/17 04:25 <Fletcher Martin R - Last Filed: 05/28/17 11:52> Phys Exam - Physical Examination Constitutional: NAD HEENT: moist MMs Respiratory: no wheezing, clear to auscultation bilateral Cardiovascular: RRR, no significant murmur Gastrointestinal: soft, non-tender Neurological: non-focal, moves all 4 limbs Psychiatric: A&O x 3 Deviation from normal: tearful <Nick Church W - Last Filed: 05/28/17 10:52> Dx/Plan (1) Dysphasia Code(s): R47.02 - DYSPHASIA Status: Acute Plan: consult speech therapy for evaluation. d/c pending recommendations. (2) Anaphylactic reaction Code(s): T78.2XXA - ANAPHYLACTIC SHOCK, UNSPECIFIED, INITIAL ENCOUNTER Status : Acute QualifierTitle: Encounter type: initial encounter Qualified Code(s): T78.2XXA - Anaphylactic shock, unspecified, initial encounter Plan: protecting airway. lungs clear - continue prednisone. if unable to swallow, will switch back to decadron. (3) Hypokalemia Code(s): E87.6 - HYPOKALEMIA Status: Resolved Plan: improved on repeat. (4) Anxiety Code(s): F41.9 - ANXIETY DISORDER, UNSPECIFIED Status: Chronic Plan: home meds. needs close outpatient f/u. <Nick Church - Last Filed: 05/28/17 10:52> Attending Addendum - Attending Addendum Date/Time: 05/28/17 1150 I personally evaluated the patient and discussed the management with Dr. Church. I agree with the History, Examination, Assessment and Plan documented above with any addition or exceptions noted below. Patient here with what appears to be possible allergic reaction but no evidence at current time to support anaphylaxis. She has not required invasive airway support, and is breathing quite well. She does complain of inability to swallow liquids and solids, and we will have speech therapy see patient. Continue steroids. Patient very much needs to follow up with Plodding Operator in outpatient setting due to her frequent trips to ER for similar symptoms. I expect her anxiety is a component that is exacerbating her symptoms. <Fletcher Martin - Last Filed: 05/28/17 11:52>
[2017-05-28] MEDS ORDERED: EPINEPHrine 1 MG/10 ML Abboject SYRINGE ONE (19:33)
[2017-05-28] MEDS ORDERED: Lorazepam 2 MG/ML VIAL SLOW IVP SCH (20:00)
[2017-05-28] MEDS ORDERED: EPINEPHrine 1 MG/ML AMP IM SCH (20:00)
[2017-05-28] MEDS ORDERED: diphenhydrAMINE 25 MG in Sodium Chloride 0.9% 50 ML IVPB SCH (20:00)
[2017-05-28] MEDS ORDERED: traZODone HCl 50 MG TAB PO SCH (21:00)
--- NOTE | 2017-05-29 07:54 | PDOC.FM ---
- Subjective Subjective: CC: feeling better HPI: Patient states she was concerned she might have anaphylaxis again last night when her boyfriend came into room after eating butter finger candy bar. Received ativan and 1 dose of epi which resolved symptoms. States she is ready to go home. Stress importance of f/u with harm reduction worker. - Objective MAR Reviewed: Yes Vital Signs & Weight: Vital Signs (12 hours) Pulse Ox 05/29/17 05:16 99 05/28/17 21:00 100 05/28/17 20:25 100 Weight Weight 105.233 kg I&O: 05/28/17 05/29/17 05/30/17 06:59 06:59 06:59 Intake Total 966 1240 Output Total 400 Balance 966 840 Result Diagrams: 05/27/17 17:21 05/28/17 04:25 <Nick Church W - Last Filed: 05/29/17 09:58> - Objective Vital Signs & Weight: Vital Signs (12 hours) Temp Pulse Resp BP Pulse Ox 05/29/17 07:51 98.3 F 52 L 18 05/29/17 07:45 98.3 F 52 L 18 112/55 L 100 05/29/17 05:16 99 05/29/17 04:12 98.0 F 53 L 18 113/56 L 98 05/29/17 00:09 98.3 F 62 19 118/56 L 98 Weight Weight 105.233 kg I&O: 05/28/17 05/29/17 05/30/17 06:59 06:59 06:59 Intake Total 966 1240 Output Total 400 Balance 966 840 Result Diagrams: 05/27/17 17:21 05/28/17 04:25 <Fletcher Martin - Last Filed: 05/29/17 10:04> Phys Exam - Physical Examination Constitutional: NAD HEENT: moist MMs, sclera anicteric Neck: no nodes Respiratory: no wheezing, no rales, no rhonchi, clear to auscultation bilateral Cardiovascular: RRR, no significant murmur Gastrointestinal: soft, non-tender Musculoskeletal: no edema Neurological: non-focal, moves all 4 limbs <Nick Church W - Last Filed: 05/29/17 09:58> Dx/Plan (1) Dysphasia Code(s): R47.02 - DYSPHASIA Status: Acute Plan: - cleared by speech therapy - plan for d/c today (2) Anaphylactic reaction Code(s): T78.2XXA - ANAPHYLACTIC SHOCK, UNSPECIFIED, INITIAL ENCOUNTER Status : Acute QualifierTitle: Encounter type: initial encounter Qualified Code(s): T78.2XXA - Anaphylactic shock, unspecified, initial encounter Plan: protecting airway. lungs clear - continue prednisone. (3) Hypokalemia Code(s): E87.6 - HYPOKALEMIA Status: Resolved Plan: improved on repeat. (4) Anxiety Code(s): F41.9 - ANXIETY DISORDER, UNSPECIFIED Status: Chronic Plan: home meds. needs close outpatient f/u. <Nick Church - Last Filed: 05/29/17 09:58> Attending Addendum - Attending Addendum Date/Time: 05/29/17 1003 I personally evaluated the patient and discussed the management with Dr. Church. I agree with the History, Examination, Assessment and Plan documented above with any addition or exceptions noted below. Patient doing well this morning. Reports able to swallow solids and liquids without difficulty and has no shortness of breath. She will continue on steroids upon discharge. Advised her to follow up with her harm reduction worker RADHA to explore new treatment options for her severe peanut allergy. Stable for discharge home today. <Fletcher Martin - Last Filed: 05/29/17 10:04>
[2017-05-29] MEDS ORDERED: predniSONE 20 MG TAB PO SCH (08:00)
[2017-05-29 08:18] VITALS: BP 112/55; TEMP 98.3
[2017-05-29] MEDS: FLUoxetine HCl 20 MG CAP PO SCH (09:30)
[2017-05-29] MEDS: Ferrous Sulfate 325 MG TAB PO SCH (09:30)
[2017-05-29] MEDS: diphenhydrAMINE 25 MG CAP PO SCH (09:30)
[2017-05-29] MEDS: Enoxaparin Sodium 40 MG/0.4 ML SYRINGE SC SCH (10:09)
--- NOTE | 2017-05-29 22:52 | DIS-2 ---
DATE OF ADMISSION: 05/27/2017 DATE OF DISCHARGE: 05/29/2017 RESIDENT: Nick Church MD ADMITTING ATTENDING: Lindsay Patrick MD DISCHARGE ATTENDING: Fletcher Martin MD CONSULTATIONS: None. IMAGING: None. PERTINENT LABORATORY FINDINGS: Potassium of 3.2 at admission and trended up to 4.2 after replacement. DISCHARGE MEDICATIONS: 1. Prednisone 40 mg daily for 5 days. 2. Trazodone 100 mg at bedtime. 3. Prozac 40 mg daily. 4. Xanax 0.5 mg twice daily as needed. 5. Benadryl 25 mg daily. 6. Ferrous sulfate 325 mg daily. 7. Epinephrine 0.3 mg IM as needed for anaphylaxis. DISCONTINUE MEDICATIONS: None. HISTORY OF PRESENT ILLNESS AND HOSPITAL COURSE: Leeanna is anxious, but pleasant 31-year-old -[place] Citizen female. She presented from the ER with a concern for anaphylactic reaction due to PEANUTS. She has a history of severe reactions to PEANUTS, requiring intubation in the past. She administered epinephrine IM and called EMS. She denied shortness of breath, chest pain, or tightness at time of admission. No signs of impending respiratory failure at any point in her care. On day 1 of admission, the patient stated her breathing was fine, but she was having difficulty swallowing. Speech Therapy came by and evaluated the patient and recommended a pureed diet. The patient was witnessed choking on water during rounds. She was kept overnight for additional observation. On day of discharge, stated her swelling had improved. She had concerned for another anaphylactic episode when her boyfriend came into the room after he had eaten a Butterfinger candy bar. She received some Ativan for this and her symptoms were improved. Importance of follow up with transaction processor was stressed with the patient. She stated she would follow up with her ENT/ transaction processor soon. Additionally, the case was discussed with Dr. Tony Luis from Pulmonology. Dr. Luis never saw the patient during the hospitalization, but has managed her in the critical care unit multiple times in the past. He has stressed multiple to the patient the importance of not taking epinephrine when she is not experiencing a severe reaction as it increases her risk for unnecessary intubation. He recommended that in future events, he patient undergo peak flow testing or spirometry in the ER or in the observation setting. Stated if her spirometry was normal or her peak flow test showed greater than 400 mL that she would be safe for discharge. Vital signs at time of discharge were within normal limits. DISPOSITION: Stable. DISCHARGE INSTRUCTIONS: 1. Location: Home. 2. Diet: Regular. 3. Activity: As tolerated. 4. Followup: Patient is to follow up with her primary care physician and with her transaction processor. Less than 30 minutes was spent on this discharge. DARCY
== END 2017-05-29 10:18 | disposition home or self-care (01) ==
LOC: ERS 16:56 → 2SW 19:03
PROVIDERS: ADMIT Family Medicine; ATTEND Family Medicine
DX: T78.01XA Anaphylactic reaction due to peanuts, initial encounter (principal); R47.02 Dysphasia; E87.6 Hypokalemia; F41.9 Anxiety disorder, unspecified; Z91.010 Allergy to peanuts; Z91.011 Allergy to milk products; Z91.013 Allergy to seafood; Z91.09 Other allergy status, other than to drugs and biological substances
CPT/HCPCS: 36415; 80048; 80053; 83735; 85025; 93005; 96361; 96365; 96366; 96367; 96372; 96375; 96376; G0378; G8996-GN-CK; G8997-GN-CI; J0171; J1100; J1200; J1650; J2060; J3475; J3480; J7050; J7506

== ENCOUNTER 2017-06-12 13:22 | Inpatient (IN) | payer BC ==
[2017-06-12] MEDS ORDERED: Midazolam HCl 5 mg/ml Vial ONE (13:32)
[2017-06-12 13:53] LABS: CO2 Tension 40.2 mmHg (35.0-45.0); O2 Tension (PaO2) 107.7 mmHg (80.0-100.0); pH, Arterial 7.34 (7.35-7.45)
[2017-06-12 13:54] LABS: Actual Bicarbonate (HCO3a) 21.4 mEq/L (22-26); Hemoglobin (Hb) 11.2 g/dL (12.0-16.0)
[2017-06-12 13:55] LABS: Analyzer IN Cardio ER; Calcium, Ionized 1.2 mmol/L (1.12-1.30); Carboxyhemoglobin (COHb) 1.4 gm% (0.0-3.0); Potassium - ABG Lab 2.9 mmol/L (3.70-5.30); Puncture Site RRA
[2017-06-12 14:13] LABS: #Basophils 0.1 thou/uL (0.0-0.2); #Eosinphils 0.2 thou/uL (0.0-0.7); #Lymphocytes 1.9 thou/uL (1.20-3.40); #Monocytes 0.7 thou/uL (0.11-0.59); %Basophils 1.5 % (0.0-1.0); %Eosinophils 3.5 % (0.0-10.0); %Lymphocytes 26.8 % (21.0-51.0); %Monocytes 10.3 % (0.0-10.0); %Neutrophils 57.8 % (42.0-75.0); Hemoglobin 12.4 g/dL (12.0-16.0); Mean Corpuscular Hemoglobin 29.1 pg (27.0-31.0); Mean Corpuscular Volume 85.5 fl (81.0-99.0); Mean Platelet Volume 8.2 fL (7.4-10.4); Platelet Count 244 thou/uL (130-400); RBC Distribution Width 12.5 % (11.5-14.5); Red Blood Cell (RBC) Count 4.26 mill/uL (4.20-5.40); White Blood Cell (WBC) Count 6.9 thou/uL (4.8-10.8)
--- NOTE | 2017-06-12 14:16 | RAD ---
PORTABLE CHEST ONE VIEW: 06/12/2017 1:45 p.m. HISTORY: Respiratory failure. Allergic reaction to peanuts. FINDINGS: The heart size is borderline. There is an endotracheal tube with the tip just below the level of the clavicular heads. The nasogastric tube can be traced into the stomach, with the tip excluded from t he film. No lobar consolidation, pneumothoraces, neil pulmonary edema, or large effusions are seen. POS: [facility]
[2017-06-12 14:18] LABS: BHCG - Serum Negative (NEGATIVE); Pregs Control Background? CLEAR/WHITE (CLR/WHITE); Pregs Control Bar Appear? YES (CONTROL BAR)
--- NOTE | 2017-06-12 14:24 | PDOC.FPRHP ---
- History of Present Illness Chief Complaint: anaphylaxis History of Present Illness: 31 yo f with pmhx of anxiety and anemia presents to the ED via EMS, intubated and sedated after having a reaction to the smell of peanuts at school. She has had several hospitalizations for peanut allergy anaphylaxis as well as anaphylaxis to seafood. From the ERMD, patient smelled peanuts at school, started to feel her throat close, and self-administered her epi pen. EMS came to the seen ten minutes later and gave her 5mg Benadryl, 125mg solumedrol, and she still felt no improvement. Due to her feeling like her throat was closing up , she was intubed and sedated with 200mg ketamine and 90 roccuronium. She was transferred here to the ED via EMS. When I saw her she was intubated and sedation. She responded to verbal commands. Unable to assess ROS d/t intubated and sedated. ED Course: 10Versed, 1L NS - Allergies/Adverse Reactions Allergies Allergy/AdvReac Type Severity Reaction Status Date / Time grass pollen Allergy Verified 03/21/17 02:13 milk Allergy Verified 03/21/17 02:13 mold Allergy Verified 03/21/17 02:13 peanut Allergy Verified 03/21/17 02:13 shellfish derived Allergy Verified 03/21/17 02:13 dust Allergy Uncoded 03/21/17 02:13 trees Allergy Uncoded 03/21/17 02:13 - Home Medications Medication Instructions Recorded Confirmed Type ALPRAZolam [Xanax] 0.25 mg PO BID PRN 05/17/17 05/27/17 History FLUoxetine HCl [Prozac] 40 mg PO DAILY 05/17/17 05/27/17 History traZODone HCl [Trazodone HCl] 100 mg PO HS 05/17/17 05/27/17 History diphenhydrAMINE [Benadryl] 25 mg PO DAILY 05/27/17 05/27/17 History EPINEPHrine [Epipen] 0.3 mg IJ PRN PRN #2 auto.injct 05/28/17 Rx Ferrous Sulfate [Iron] 325 mg PO DAILY 05/28/17 05/28/17 History predniSONE 40 mg PO QAM-WM #5 tab 05/28/17 Rx - History PMHx: anxiey and anemia PSHx: adenoidectomy, tonsillectomy, cs X2 FHx: maternal htn Social: denies drug, alcohol, tobacco use - Vital signs BP: 120/71 HR: 128 RR: 12 Tmax: 98.1 Pox: 100% on vent Wt: 136kg FMR H&P: Results - Labs Result Diagrams: 06/12/17 14:00 06/12/17 14:00 Lab results: WBC 6.9 thou/uL (4.8-10.8) 06/12/17 14:00 Hgb 12.4 g/dL (12.0-16.0) 06/12/17 14:00 Hct 36.4 % (36.0-47.0) 06/12/17 14:00 MCV 85.5 fl (81.0-99.0) 06/12/17 14:00 Plt Count 244 thou/uL (130-400) 06/12/17 14:00 Neutrophils % 57.8 % (42.0-75.0) 06/12/17 14:00 ABG pH 7.34 (7.35-7.45) L 06/12/17 13:51 ABG pCO2 40.2 mmHg (35.0-45.0) 06/12/17 13:51 ABG pO2 107.7 mmHg (80.0-100.0) H 06/12/17 13:51 FMR H&P: A/P - Problem List (1) Anaphylactic reaction Current Visit: No Status: Acute Priority: High Code(s): T78.2XXA - ANAPHYLACTIC SHOCK, UNSPECIFIED, INITIAL ENCOUNTER Qualifiers: Encounter type: initial encounter Qualified Code(s): T78.2XXA - Anaphylactic shock, unspecified, initial encounter (2) Sinus tachycardia Current Visit: No Status: Acute Priority: Medium Code(s): R00.0 - TACHYCARDIA, UNSPECIFIED (3) Anxiety Current Visit: No Status: Chronic Priority: Medium Code(s): F41.9 - ANXIETY DISORDER, UNSPECIFIED - Plan 31 yo f with pmhx of anxiety, anemia, and multiple hospitalizations for anaphylaxis, presents intubated and sedated via EMS after smelling peanuts and developing sx of anaphylaxis at school, admitted for anaphylaxis s/p intubation/ sedation with likely component of panic attacks. 1.)Anaphylaxis- -2/2 peanut allergy vs panic attack d/t fear response from prior anaphylactic reactions. She developed these sx after smelling peanuts at school. We will admit to CCU. Dr. Luis has been consulted. We will order the sedation protocol and likely wean patient off the vent tomorrow morning. Per EDMD, EMS did not see any swelling of the vocal cords during intubation. However, despite the epipen, benadryl, and solumedrol she did not have improvement of sx which lead to her intubation. She would likely benefit from outpatient allergy workup with possible desenitization treatment as well as outpatient medical and therapy management of anxiety component. 2.)Panic attack- -Pt presents with sx consistent with a panic attack. Would recommend initiating SSRI with sx tx of clonazepam. Pt is intubated and sedated at this time. Will defer management until patient is weaned off the vent. 3.)Sinus tachycardia- -Likely 2/2 recent intubation. Pt will be monitored overnight in the ICU. I will order the sedation protocol. CODE STATUS: full DVT prophylaxis: lovenox GI prophylaxis: famotidine FMR H&P: Upper Level - Pertinent history 31 yo AAF with reported PMH of severe anaphylactic peanut allergy that has required multiple hospitalizations and intubations p/w exposure to peanuts today. Pt self administered epipen and called EMS who noted no improvement in pt status. EMS gave pt additional round of epinephrine, benadryl, and solumedrol. Per EMS report, pt continued to c/o throat tightening and was at that time given Ketamine 200 mg, Rocuronium 90 mg, Benadryl 50 mg, and subsequently intubated with 8-0 ET tube in the field. No further history obtainable at this time. In ED, pt had CBC, CMP, and ABG drawn. Pt was given versed for sedation and 1L NS. - Pertinent findings BP 120/71, HR 121, R 30, O2 100% on vent at 30% FiO2, T 98.1 Gen: Intubated and sedated, NAD CV: Tachycardic, regular rhythm, no obvious murmur Resp: Coarse ventilatory breath sounds, otherwise CTAB Abd: BS+, soft, no distension Ext: No cyanosis or edema - Plan Date/Time: 06/12/17 1424 I, Ricardo Jackson MD, have evaluated this patient and agree with findings/plan as outlined by internet marketing executive resident. Pertinent changes/additions are listed here. 1. Anaphylactic reaction to peanuts s/p ET intubation - Admit to CCU with ventilatory support and wean as tolerated. Pulmonology consulted by DEYSI, recommendations greatly appreciated. - Per review of records, there is some concern whether pt's reaction is true anaphylaxis to peanut or reaction to self administration of Epipen. 2. Tachycardia - Likely secondary to epinephrine administration. Continue to monitor response to IVF. PPx: Lovenox for VTE and famotidine for GI prophylaxis. FULL code. Attending Addendum - Attending Addendum Date/Time: 06/12/17 1137 I personally evaluated the patient and discussed the management with Dr. Slick Conrad, I agree with the History, Examination, Assessment and Plan documented above with any addition or exceptions noted below. 31 y.o. 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 She immediately responded by dosing with EpiPen and called EMS, which also dosed, gave steroids and intubated, as pt. continued to feel symptomatic (no objective finding of anaphylaxis noted and intubation was not reported as difficult). Pt. is currently stable on vent and arousable and responsive. External orem normal in appearance. Lungs CTA. RRR without Murmur. Pulm consulted for vent mgt. Likely may be extubated tomorrow morning or later this evening. Pt. is in the process of pursuing heel sander consultation as OP to objectively assess the severity of her disease and the possibility of desensitization if necessary to avoid the frequency of her episodes.
[2017-06-12 14:35] LABS: ALT (SGPT) 12 U/L (8-55); AST (SGOT) 20 U/L (5-34); Alkaline Phosphatase 67 U/L (40-150); Anion Gap 13 mmol/L (10-20); BUN (Urea Nitrogen) 6 mg/dL (7.0-18.7); Bilirubin, Total 0.6 mg/dL (0.2-1.2); Calc. Creatinine Clearance 0 mL/min (70-130); Calcium 8.8 mg/dL (7.8-10.44); Carbon Dioxide 18 mmol/L (22-29); Chloride 109 mmol/L (98-107); Estimated GFR-MDRD Greater than 90; Globulin 3.5 g/dL (2.4-3.5); Glucose 90 mg/dL (70-105); Potassium 3.5 mmol/L (3.5-5.1); Protein, Total 7.5 g/dL (6.0-8.3); Sodium 136 mmol/L (136-145)
[2017-06-12] MEDS ORDERED: Ventilator Sedation Protocol 1 EACH FS ONE (15:20)
[2017-06-12] MEDS ORDERED: Fentanyl BOLUS 250 ML IVPB PRN (15:55)
[2017-06-12] MEDS ORDERED: Lorazepam 2 MG/ML VIAL SLOW IVP PRN (15:55)
[2017-06-12] MEDS ORDERED: Morphine 4 MG/ML VIAL SLOW IVP PRN (15:55)
[2017-06-12] MEDS ORDERED: DISCONTINUE PREVIOUS NARCOTIC PAIN MEDICATIONS AND BENZODIAZEPINES FS SCH (15:55)
[2017-06-12] MEDS ORDERED: Propofol BOLUS 1,000 MG/100 ML VIAL IV PRN (15:55)
[2017-06-12] MEDS ORDERED: fentaNYL Citrate/PF 2,000 MCG in Sodium Chloride 0.9% 60 ML IV SCH (15:55)
[2017-06-12] MEDS ORDERED: EPINEPHrine 1 MG/ML AMP IM PRN (16:15)
[2017-06-12] MEDS: Propofol 1,000 MG/100 ML VIAL IV PRN ×3 (16:30→21:00)
[2017-06-12] MEDS ORDERED: Ondansetron PF 4 MG/2 ML Vial IVP PRN (16:38)
[2017-06-12] MEDS ORDERED: Acetaminophen 325 MG Suppository PR PRN (16:39)
[2017-06-12 17:33] VITALS: BMI 39.4
[2017-06-12] MEDS: Sodium Chloride 0.9% 1,000 ML IV SCH (18:08)
[2017-06-12] MEDS: Famotidine 40 MG/4 ML VIAL SLOW IVP SCH (20:53)
[2017-06-13] MEDS: Propofol 1,000 MG/100 ML VIAL IV PRN ×3 (00:43→07:57)
[2017-06-13] MEDS: Sodium Chloride 0.9% 1,000 ML IV SCH ×2 (00:44→08:56)
--- NOTE | 2017-06-13 01:13 | CON ---
DATE OF CONSULTATION: 06/12/2017 HISTORY OF PRESENT ILLNESS: Ms. Durán is a 31-year-old female who is well known to me. She apparen tly called EMS and was intubated for a "reaction to smell of peanuts." We work this up extensively last visit and I actually talked to an licensed clinical social worker who had seen her in the past. I also explained to her that her reaction to the smell of peanuts was extreme and that injecti ng herself with epinephrine would lead to extreme anxiety aggravating the clinical scenario. This ad mission she was intubated after the smell of peanuts. She was given Benadryl and Solu-Medrol and EMT said her throat was closing up which led to intubation and sedation. The EMT is actually took a evangelista tograph of her upper airway fiberoptically, however, this was sent to my phone, so I could review it by the emergency physician. She has a normal upper airway even with a tube in. She has actually a l arge air space anterior to the endotracheal tube, which is an 8-0 tube. She has absolutely no upper airway edema. I plan to extubate her on arrival in the ICU, but she began vomiting as they were awaking her, which I suspect was an aggravation of her gag reflex. She will be kept intubated overnight and then extubated in the morning. I have met with her parents and explained all of the above to them. I also explained to them, I feel strongly that she needs psy chology to be following her regularly and teaching or biofeedback techniques and she needs some signi ficant education about not using an EpiPen based on smells. She does have a true PEANUT allergy, but none of these recent admissions have been related to ingesti on of peanut or peanut contaminated products. PAST MEDICAL HISTORY: Remarkable for multiple intubations, anxiety, tonsillectomy, and . SOCIAL HISTORY: Nonsmoker, nondrinker. 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 FAMILY HISTORY: Negative for lung disease. REVIEW OF SYSTEMS: Not obtainable. MEDICATIONS: Have been reviewed. PHYSICAL EXAMINATION: GENERAL: She is now sedated again. VITAL SIGNS: Blood pressure 122/73, heart rate is 90, and respiratory rate is 18. HEENT: Pupils are equal. Sclerae is anicteric. NECK: Supple. LUNGS: She does not have a prolonged expiratory phase on her flow volume loop with review of mechani cs of ventilation at the bedside. Her lungs are completely clear. HEART: Regular rhythm, no S3. ABDOMEN: Soft and nontender. EXTREMITIES: No clubbing, cyanosis, or edema. IMPRESSION: Conversion disorder. There is no evidence of anaphylaxis here. If she had not vomited, I would have extubated her earlier, wait until the morning, wake her up quickly and extubate her griffin ckly. I met with family and answered all their questions. Critical care time was 30 minutes.
[2017-06-13 02:20] VITALS: BP 103/60
[2017-06-13 05:34] LABS: #Lymphocytes 0.8 thou/uL (1.20-3.40); #Monocytes 0.5 thou/uL (0.11-0.59); #Neutrophils 5.4 thou/uL (1.40-6.50); %Eosinophils 0.1 % (0.0-10.0); %Lymphocytes 12.2 % (21.0-51.0); %Monocytes 7.6 % (0.0-10.0); %Neutrophils 80.2 % (42.0-75.0); Hemoglobin 11.6 g/dL (12.0-16.0); Mean Corpuscular HGB CONC 33.1 g/dL (32.0-36.0); Mean Corpuscular Hemoglobin 28.6 pg (27.0-31.0); Mean Corpuscular Volume 86.6 fl (81.0-99.0); Platelet Count 251 thou/uL (130-400); RBC Distribution Width 12.5 % (11.5-14.5); Red Blood Cell (RBC) Count 4.06 mill/uL (4.20-5.40); White Blood Cell (WBC) Count 6.7 thou/uL (4.8-10.8)
[2017-06-13 05:47] LABS: Anion Gap 14 mmol/L (10-20); BUN (Urea Nitrogen) 4 mg/dL (7.0-18.7); Calc. Creatinine Clearance 218 mL/min (70-130); Calcium 8.7 mg/dL (7.8-10.44); Carbon Dioxide 16 mmol/L (22-29); Chloride 112 mmol/L (98-107); Estimated GFR-MDRD Greater than 90; Glucose 92 mg/dL (70-105); Potassium 4.2 mmol/L (3.5-5.1); Sodium 138 mmol/L (136-145)
--- NOTE | 2017-06-13 07:07 | PDOC.FM ---
- Subjective Subjective: Pt seen at bedside in NAD, intubated and sedated. PAUL overnight. No family at bedside. - Objective MAR Reviewed: Yes Vital Signs & Weight: Vital Signs (12 hours) Temp Pulse Resp BP Pulse Ox 06/13/17 06:59 81 06/13/17 06:00 14 06/13/17 04:00 98.6 F 17 06/13/17 02:18 74 103/60 06/13/17 02:00 13 06/13/17 00:00 99.8 F H 13 06/12/17 22:53 76 121/75 06/12/17 22:00 15 06/12/17 20:00 99.0 F 76 15 97 Weight Admit Weight 101 kg Weight 99.8 kg Most Recent Monitor Data Heart Rate from ECG 80 NIBP 134/83 NIBP BP-Mean 103 Respiration from ECG 16 SpO2 99 I&O: 06/12/17 06/13/17 06/14/17 06:59 06:59 06:59 Intake Total 1999 Output Total 2400 Balance -400 Result Diagrams: 06/13/17 05:14 06/13/17 05:14 <Ricardo Jackson - Last Filed: 06/13/17 07:31> - Objective Vital Signs & Weight: Vital Signs (12 hours) Temp Pulse Resp BP 06/13/17 08:00 98.8 F 15 06/13/17 06:59 81 06/13/17 06:00 14 06/13/17 04:00 98.6 F 17 06/13/17 02:18 74 103/60 06/13/17 02:00 13 06/13/17 00:00 99.8 F H 13 06/12/17 22:53 76 121/75 Weight Admit Weight 101 kg Weight 99.8 kg Most Recent Monitor Data Heart Rate from ECG 86 NIBP 119/76 NIBP BP-Mean 93 Respiration from ECG 20 SpO2 98 I&O: 06/12/17 06/13/17 06/14/17 06:59 06:59 06:59 Intake Total 1999 177.1 Output Total 2400 60 Balance -400 117.1 Result Diagrams: 06/13/17 05:14 06/13/17 05:14 <Adry Buck - Last Filed: 06/13/17 10:15> Phys Exam - Physical Examination Constitutional: NAD intubated and sedated HEENT: PERRLA, sclera anicteric Respiratory: no wheezing, clear to auscultation bilateral Cardiovascular: RRR, no significant murmur Gastrointestinal: soft, non-tender, positive bowel sounds Musculoskeletal: pulses present Skin: cap refill <2 seconds <Ricardo Jackson - Last Filed: 06/13/17 07:31> Dx/Plan (1) Peanut allergy Code(s): Z91.010 - ALLERGY TO PEANUTS Status: Acute (2) Anxiety Code(s): F41.9 - ANXIETY DISORDER, UNSPECIFIED Status: Chronic - Plan Plan: 1. Hx anaphylactic reaction to peanut - patient has reported history of anaphylactic reaction to smell of peanuts - concern for anxiety/panic attack causing need for intubation on multiple occasions as airway has reportedly been without angioedema - pulmonology on board, recommendations greatly appreciated - likely plan for extubation this AM - will attempt to coordinate care in outpatient setting with adult supervisor ordnance truck installation 2. Anxiety - per above. restart home medications after extubation disposition: Pt stable. Pulmonology recommendations greatly appreciated. Likely extubate this AM. Restart home medications. Coordinate care with outpatient supervisor ordnance truck installation. Continue to monitor closely. <Ricardo Jackson - Last Filed: 06/13/17 07:31> Attending Addendum - Attending Addendum Date/Time: 06/13/17 1013 I personally evaluated the patient and discussed the management with Dr. Jackson on 06/13/17. I agree with the History, Examination, Assessment and Plan documented above with any addition or exceptions noted below. Patient extubated and awake. VSS. Speaking in full sentences, with hoarse voice. States throat hurts and she would like to eat. Will advance diet per protocol and after a period of observation transfer out of ICU. Strongly encourage outpatient follow up with supervisor ordnance truck installation and psychologist for biofeedback on anaphylaxis. Only needs to use Epipen if actually ingests peanuts. <Adry Buck - Last Filed: 06/13/17 10:15>
[2017-06-13] MEDS: Famotidine 40 MG/4 ML VIAL SLOW IVP SCH (08:58)
[2017-06-13] MEDS ORDERED: Enoxaparin Sodium 40 MG/0.4 ML SYRINGE SC SCH (09:00)
[2017-06-13] MEDS ORDERED: Acetaminophen 325 MG TAB PO PRN (10:23)
[2017-06-13] MEDS ORDERED: Benzocaine 20% Spray 60 ML CAN PO PRN (10:23)
--- NOTE | 2017-06-13 13:23 | PQF ---
CLINICAL DOCUMENTATION IMPROVEMENT CLARIFICATION FORM: ICD-10 Updated PLEASE DO AN ADDENDUM TO THE PROGRESS NOTE WITH ANY DOCUMENTATION UPDATES OR ADDITIONS AND CARRY THROUGH TO DC SUMMARY. THANK YOU. DATE: 06/13 ATTN: DR. WINSOME YADAV/ DR. Darren MOTLEY Please exercise your independent, professional judgment in responding to the clarification form. Clinical indicators are provided on the bottom of this form for your review Please check appropriate box(s): [ ] Acute Respiratory Failure: [ ] with Hypoxia [ ] with Hypercapnia [ ] Acute Respiratory Failure due to: (etiology) [ x ] Other diagnosis possible anaphylactic reaction as documented in progress note [ ] Unable to determine For continuity of documentation, please document condition throughout progress notes and discharge summary. Thank You. CLINICAL INDICATORS - SIGNS / SYMPTOMS / LABS ER PRESENTATION 06/12: PATIENT ARRIVED TO ER INTUBATED BY EMS FOR REPORTED ALLERGIC REACTION TO PEANUTS. EMS REPORTS PT HAD GIVEN HERSELF HER EMERGENCY EPI PEN CUSTOMER LOYALTY REPRESENTATIVE OF EMS. EMS REPORTS PATIENT CONTINUED TO REPORT THAT HER THROAT WAS TIGHTENING. EMS GAVE PT 200 MG OF KETAMINE & 90 MG OF ROCC & INTUBATED PT ER PHYSICIAN DIAGNOSES DOCUMENTATION 06/12: RESPIRATORY FAILURE, ANAPHYLAXIS RISK FACTORS: SEVERE PEANUT ALLERGY PANIC DO TREATMENTS: INTUBATION IN THE FIELD BY EMS MECHANICAL VENTILATION CCU MONITORING THANK YOU! Beverley (This form is maintained as a part of the permanent medical record) 2014 [employer]. All Rights Reserved Beverley Mustafa RN, BSN [email or web address] Office: [phone] [facility]
[2017-06-13 13:35] VITALS: TEMP 98.7
--- NOTE | 2017-06-13 13:48 | PRG ---
DATE OF SERVICE: 06/13/2017 Candi Durán was extubated this morning. She met criteria for weaning. She was examined at noon. PHYSICAL EXAMINATION: VITAL SIGNS: She is afebrile, heart rates in the 60s, oximetry is 98 on room air, blood pressure 120/66. GENERAL: She has no complaints. LUNGS: Her lungs are clear. HEART: Regular rhythm. ABDOMEN: Abdomen is soft. LABORATORY DATA: White count 6.7, hemoglobin 11.6, platelets 251. Sodium 138, potassium 4.2, chloride 112, bicarbonate 16, BUN 4, creatinine 0.6. Her hyperchloremia is most likely related to volume resuscitation in the field and the ER. IMPRESSION: Panic attack/conversion disorder. I tried to show Ms. Durán a photograph of her upper airway after she was intubated and she told me she did want to look at this. I also explained to her that it is imperative that she stops sticking herself with an EpiPen every time she smells something that she thinks has peanuts. I have tried to explain to her that in a very diplomatic and gentle fashion that her reaction to these smells is creating a clinical situation where she inevitably is going to be intubated. I actually had a conversation with the EMT provider and the ambulance team that has made all 3 calls on her, all suspected that there was no significant pathophysiology going on. The photograph yesterday proves that. Dr. Hicks's visualization of her upper airway last admission when she was intubated also was normal. She never has had bronchospasm or a prolonged expiratory phase or severe hemodynamic instability consistent with anaphylaxis on any of the three admissions I have been involved with here. I have explained to her that she needs to be seeing a psychologist or psychiatrist to help her develop techniques to deal with these episodes. I tried to do this in as diplomatic fashion as possible. She immediately started yelling at me, telling me to get out of the room that she wanted a hospital as400 administrator and that she was going to [facility] next time. I did relay to the EMT that if they were able to fiberoptically visualize her upper airway during one of these episodes and her upper airway was normal, as long as there was not some other confounding factor, they should not be field intubating her. She became so verbal and so loud that I had a threaten to call security to get her to stop yelling. I have contacted the Residency Service. I see no medical reason to keep her in the hospital. Her vital signs and lab work all completely stable and it is totally reasonable to discharge her on no steroids at this point. There is overwhelming evidence that this is a panic attack with a histrionic behavior or conversion disorder. I do believe it was explained to her that her injecting herself with epinephrine creates tachycardia and hypertension, most likely which would lead an EMT to be more concerned. I have encouraged her not to stick herself with an epinephrine pen when she smelled something, but she again became angry and said that she has seen enough malpractice in her life that she knows what is right and knows what is going on with her body and does not want anyone telling her what to do. I have nothing else to offer in this scenario. Critical care time 35 minutes. DARCY
--- NOTE | 2017-06-14 07:23 | DIS-2 ---
DATE OF ADMISSION: 06/12/2017 DATE OF DISCHARGE: 06/13/2017 RESIDENT: Ricardo Jackson M.D. ADMITTING ATTENDING: Dr. Negro Weeks. DISCHARGE ATTENDING: Dr. Adry Buck. CONSULTS: Pulmonology, Dr. Tony Luis. PROCEDURES: Chest x-ray performed on 06/12/2017 showed endotracheal intubation, nasogastric tube tra moy into the stomach and no acute cardiopulmonary process. PRIMARY DIAGNOSIS: Intubation, status post likely panic attack. SECONDARY DIAGNOSES: 1. Anxiety. 2. Multiple food and environmental allergies. DISCHARGE MEDICATIONS: 1. Fluoxetine 40 mg p.o. daily. 2. Alprazolam 0.25 mg p.o. b.i.d. p.r.n. 3. Trazodone 100 mg p.o. at bedtime. 4. EpiPen IM p.r.n. HISTORY OF PRESENT ILLNESS AND HOSPITAL COURSE: The patient is a 31-year-old -[place] female who initially presented to the hospital after being intubated by EMS. The patient has a known histo ry of multiple food and environmental allergies with concern in the past for anaphylactic reaction to PEANUTS. The patient has presented multiple times with complaints of anaphylactic reaction and has subsequently been intubated. There has been some concern in the past; however, the patient has an al lergy to PEANUTS that does not lead to respiratory distress; however, becomes anxious and uses epinep hrine injections inappropriately and subsequently presents with respiratory distress. The patient wa s admitted to the CCU on mechanical ventilation and mild sedation overnight. The patient was success fully extubated without complications the next morning. There were no laboratory abnormalities or ot her medical conditions to treat during her hospitalization. After extubation, the patient reportedly became confrontational with her window shade ring sewer and with no other acute medical problems was deemed st able for discharge. The patient's hospital course otherwise uncomplicated. DISPOSITION: Stable. DISCHARGE INSTRUCTIONS: 1. Location: Home. 2. Diet: Regular diet. 3. Activity: As tolerated. 4. Followup: The patient was instructed to follow up with her primary care physician. The patient was also urged to see the importance of following up with her systems design engineer and seeking desensitization f or her reported anaphylactic reaction.
--- NOTE | 2017-06-14 17:43 | PQF ---
FELIPE MARISCAL KATHERINE MD *grant [id number] CCU-[id number] CLINICAL DOCUMENTATION CLARIFICATION FORM: POST DISCHARGE Addendum to original discharge summary date: ____ Late entry note date: __ I did not see this patient. DATE: 06/14/17 ATTN: Please exercise your independent, professional judgment in responding to the clarification form. Clinical indicators are provided on the bottom of this form for your review Please check appropriate box(s) to clarify if the following diagnosis has been ruled in or ruled out: ___Anaphylaxis due to peanut allergy (CDI/Coding list diagnosis here) [ ] Ruled in diagnosis [ ] Continue to treat [ ] Resolved [ ] Ruled out diagnosis [ ] Cannot rule out diagnosis [ ] Other diagnosis [ ] Unable to determine In addition, please specify: Present on Admission (POA): [ ] Yes [ ] No [ ] Unable to determine For continuity of documentation, please document condition throughout progress notes and discharge summary. Thank You. CLINICAL INDICATORS - SIGNS / SYMPTOMS / LABS To support the diagnosis Throat closure RISK FACTORS To support diagnosis Peanut allergy History of intubations TREATMENTS To support diagnosis MTDD
--- NOTE | 2017-06-18 21:23 | PQF ---
FELIPE MARISCAL THOMAS MD [id number] CCU-[id number] CLINICAL DOCUMENTATION CLARIFICATION FORM: POST DISCHARGE Addendum to original discharge summary date: ____ Late entry note date: __ DATE: 06/18/17 ATTN: Please exercise your independent, professional judgment in responding to the clarification form. Clinical indicators are provided on the bottom of this form for your review Please check appropriate box(s) to clarify if the following diagnosis has been ruled in or ruled out: Anaphylaxis due to peanut allergy (CDI/Coding list diagnosis here) [ ] Ruled in diagnosis [ ] Continue to treat [ ] Resolved [ ] Ruled out diagnosis [ ] Cannot rule out diagnosis [ ] Other diagnosis _histionic behavior/conversion disorder [ ] Unable to determine In addition, please specify: Present on Admission (POA): [ ] Yes [ ] No [ ] Unable to determine For continuity of documentation, please document condition throughout progress notes and discharge summary. Thank You. CLINICAL INDICATORS - SIGNS / SYMPTOMS / LABS To support the diagnosis To support resolution of diagnosis Throat constriction RISK FACTORS To support diagnosis Peanut allergy TREATMENTS To support diagnosis She did not have anaphylaxis. This was histrionic behavior aggravated by use of epipen MTDD
--- NOTE | 2017-06-30 15:58 | EKG ---
Test Reason : ALLERGIC REACTION Blood Pressure : / mmHG Vent. Rate : 128 BPM Atrial Rate : 128 BPM P-R Int : 142 ms QRS Dur : 098 ms QT Int : 302 ms P-R-T Axes : 057 057 004 degrees QTc Int : 440 ms Sinus tachycardia Possible Left atrial enlargement Left ventricular hypertrophy with repolarization abnormality Abnormal ECG Confirmed by BERTHA HERNANDEZ ([id number]), industrial editor KARLO LEON ([id number]) on 06/30/2017 3:57:42 PM Referred By: Confirmed By:BERTHA HERNANDEZ
== END 2017-06-13 16:46 | disposition home or self-care (01) | DRG 880 ==
LOC: ERS 13:22 → CCU 14:16
PROVIDERS: ADMIT Family Medicine; ATTEND Family Medicine
PROC: 5A1935Z Respiratory Ventilation, Less than 24 Consecutive Hours (ICD-10-PCS; principal; 2017-06-12)
PROC: 0BH17EZ Insertion of Endotracheal Airway into Trachea, Via Natural or Artificial Opening (ICD-10-PCS; 2017-06-12)
DX: F41.0 Panic disorder [episodic paroxysmal anxiety] (principal); T78.01XA Anaphylactic reaction due to peanuts, initial encounter; E87.8 Other disorders of electrolyte and fluid balance, not elsewhere classified; F44.89 Other dissociative and conversion disorders; F41.9 Anxiety disorder, unspecified; Z91.010 Allergy to peanuts; Z91.018 Allergy to other foods; R00.0 Tachycardia, unspecified; Z91.013 Allergy to seafood; Z91.09 Other allergy status, other than to drugs and biological substances
CPT/HCPCS: 36415; 51702; 71045; 80048; 80053; 82805; 84703; 85025; 93005; 94002; 94003; 96361; 96365; 96366; 96376; J1650; J2060; J2250; J2704; J3010; J7050; S0028

== ENCOUNTER 2017-06-25 16:30 | Emergency (ER) | payer BC ==
[2017-06-25] MEDS ORDERED: diphenhydrAMINE 50 MG/ML VIAL ONE (16:58)
[2017-06-25] MEDS ORDERED: Water For Inject, Bacteriostat 30 ML ONE (16:58)
[2017-06-25] MEDS ORDERED: methylPREDNISolone Sod Succ/PF 125 MG/2 ML VIAL ONE (16:58)
[2017-06-25] MEDS ORDERED: Famotidine/PF 20 mg/2ml Vial SLOW IVP SCH (17:15)
== END 2017-06-25 18:31 | disposition home or self-care (01) ==
LOC: ERS 16:30
DX: T78.40XA Allergy, unspecified, initial encounter (principal); F32.9 Major depressive disorder, single episode, unspecified; F41.9 Anxiety disorder, unspecified; Z79.899 Other long term (current) drug therapy
CPT/HCPCS: 96361; 96374; 96375; J1200; J2930; S0028

== ENCOUNTER 2017-07-02 17:15 | Emergency (ER) | payer BC ==
[~2017-07-02 17:15] MED LIST: ISOVUE-370 76%-LOCM 1 ML ONE
[2017-07-02 17:51] LABS: #Eosinphils 0.1 thou/uL (0.0-0.7); #Lymphocytes 0.6 thou/uL (1.20-3.40); #Monocytes 0.4 thou/uL (0.11-0.59); #Neutrophils 5.5 thou/uL (1.40-6.50); %Basophils 0.2 % (0.0-1.0); %Eosinophils 0.9 % (0.0-10.0); %Lymphocytes 9.6 % (21.0-51.0); %Monocytes 6.2 % (0.0-10.0); %Neutrophils 83.1 % (42.0-75.0); Hemoglobin 12.5 g/dL (12.0-16.0); Mean Corpuscular HGB CONC 33.8 g/dL (32.0-36.0); Mean Corpuscular Hemoglobin 28.5 pg (27.0-31.0); Mean Corpuscular Volume 84.4 fl (81.0-99.0); Mean Platelet Volume 7.9 fL (7.4-10.4); Platelet Count 247 thou/uL (130-400); RBC Distribution Width 12.2 % (11.5-14.5); Red Blood Cell (RBC) Count 4.39 mill/uL (4.20-5.40); White Blood Cell (WBC) Count 6.6 thou/uL (4.8-10.8)
[2017-07-02 18:11] LABS: ALT (SGPT) 13 U/L (8-55); AST (SGOT) 17 U/L (5-34); Alkaline Phosphatase 69 U/L (40-150); Anion Gap 12 mmol/L (10-20); BUN (Urea Nitrogen) 4 mg/dL (7.0-18.7); Calc. Creatinine Clearance 0 mL/min (70-130); Calcium 9.1 mg/dL (7.8-10.44); Carbon Dioxide 19 mmol/L (22-29); Chloride 107 mmol/L (98-107); Estimated GFR-MDRD Greater than 90; Globulin 3.5 g/dL (2.4-3.5); Glucose 82 mg/dL (70-105); Potassium 3.9 mmol/L (3.5-5.1); Protein, Total 7.5 g/dL (6.0-8.3); Sodium 134 mmol/L (136-145)
[2017-07-02] MEDS ORDERED: Ondansetron ODT 4 MG TAB ONE ×2 (18:38→19:19)
[2017-07-02] MEDS ORDERED: Morphine 4 MG/ML VIAL ONE ×3 (18:38→21:28)
[2017-07-02] MEDS ORDERED: Ketorolac Tromethamine 30 MG/ML VIAL ONE (19:19)
[2017-07-02 19:39] LABS: BHCG - Serum Negative (NEGATIVE); Pregs Control Background? CLEAR/WHITE (CLR/WHITE); Pregs Control Bar Appear? YES (CONTROL BAR)
[2017-07-02 20:03] LABS: Bilirubin Negative (Negative); Blood, Urine Negative (Negative); Clarity CLEAR (Clear); Glucose, Urine (Dipstick) Negative (Negative); Leukocyte Negative (Negative); Nitrite Negative (Negative); Protein, Urine (Dipstick) Negative (Neg-Trace); Specific Gravity, Urine 1.012 (1.002-1.036)
[2017-07-02 20:04] LABS: Pregnancy Test - Urine (BHCG) Negative (Negative); Pregu Control Background? CLEAR/WHITE (CLR/WHITE); Pregu Control Bar Appear? YES (CONTROL BAR); Specific Gravity 1.012 (1.002-1.036)
[2017-07-02] MEDS ORDERED: Glycopyrrolate 0.4 MG/ 2 ML VIAL FS SCH (21:00)
[2017-07-02] MEDS ORDERED: Glycopyrrolate 0.2 MG/ML 5 ML SYRINGE FS SCH (21:00)
--- NOTE | 2017-07-02 21:13 | CT ---
CT OF THE ABDOMEN AND PELVIS WITH IV CONTRAST: Date: 07/02/17 PROVIDED CLINICAL HISTORY: Right lower quadrant pain. FINDINGS: The visualized lung bases are free of significant opacity. The liver, spleen, pancreas, kidneys, and adrenal glands demonstrate an unremarkable CT appearance. The appendix is not entirely visualized. The visualized portions of the appendix appear normal. There is a small amount of possibly physiologic free pelvic fluid. There is fluid density seen within port ions of the colon. There is no evidence for bowel obstruction. No fat stranding or free air is seen. The osseous structures demonstrate no concerning lytic or blastic lesions. IMPRESSION: 1. No definite CT evidence for appendicitis. 2. Fluid density in the colon suggests diarrheal illness. 3. Small amount of possibly physiologic free pelvic fluid. POS: [facility]
[2017-07-02] MEDS ORDERED: Haloperidol Lactate 5 MG/ML VIAL ONE ×2 (21:18→22:20)
[2017-07-02] MEDS ORDERED: diphenhydrAMINE 50 MG/ML VIAL ONE (21:18)
--- NOTE | 2017-07-02 21:33 | ULT ---
TRANSABDOMINAL AND TRANSVAGINAL PELVIC ULTRASOUND WITH DOPPLER: Date: 07/02/17 PROVIDED CLINICAL HISTORY: Right lower quadrant pain. FINDINGS: Uterus measures about 12.7 x 4.6 x 5.5 cm and demonstrates a normal sonographic appearance. Endometri al thickness is about 8.0 mm. Right ovary measures about 5.1 x 1.8 x 3.2 cm and appears sonographically normal. Left ovary measures about 4.0 x 2.0 x 2.0 cm and appears sonographically normal. Color Doppler and spectral analysis of the ovarian waveforms reveals normal flow bilaterally. Trace, possibly physiologic free pelvic fluid. IMPRESSION: Trace, likely physiologic free pelvic fluid. Otherwise unremarkable pelvic ultrasound. POS: [facility]
[2017-07-02 22:58] LABS: Lactic Acid 0.7 mmol/L (0.5-2.2)
[2017-07-02] MEDS ORDERED: cefTRIAXone\\ROCEPHIN 250 MG VIAL ONE (23:49)
[2017-07-02] MEDS ORDERED: Lidocaine 1% PF 5 ML VIAL ONE (23:52)
[2017-07-03 22:12] LABS: Chlamydia by PCR Not Detected (NotDetected); GC by PCR Not Detected (NotDetected)
== END 2017-07-02 23:40 | disposition home or self-care (01) ==
LOC: ERS 17:15
DX: N73.9 Female pelvic inflammatory disease, unspecified (principal); F32.9 Major depressive disorder, single episode, unspecified; Z79.899 Other long term (current) drug therapy
CPT/HCPCS: 36415; 51701; 74177; 76856; 80053; 81003; 81025; 83605; 83690; 84703; 85025; 87480; 87491; 87510; 87591; 87660; 96361; 96372; 96374; 96375; 96376; A4353; J0696; J1200; J1630; J1885; J2001; J2270; Q0162

== ENCOUNTER 2017-07-10 19:55 | Emergency (ER) | payer BC ==
[2017-07-10] MEDS ORDERED: Lorazepam 2 MG/ML VIAL ONE (20:17)
[2017-07-10] MEDS ORDERED: Famotidine/PF 20 mg/2ml Vial SLOW IVP SCH (20:30)
[2017-07-10] MEDS ORDERED: Haloperidol Lactate 5 MG/ML VIAL ONE (20:46)
== END 2017-07-10 21:47 | disposition home or self-care (01) ==
LOC: ERS 19:55
DX: T78.40XA Allergy, unspecified, initial encounter (principal); F32.9 Major depressive disorder, single episode, unspecified; F41.9 Anxiety disorder, unspecified
CPT/HCPCS: 96374; 96375; J1630; J2060; S0028

== ENCOUNTER 2017-08-08 20:49 | Observation (INO) | payer BC ==
[2017-08-08] MEDS ORDERED: Lorazepam 2 MG/ML VIAL ONE (21:07)
[2017-08-08] MEDS ORDERED: EPINEPHrine 1 MG/ML AMP ONE (21:07)
[2017-08-08] MEDS ORDERED: Famotidine/PF 20 mg/2ml Vial SLOW IVP SCH (21:15)
[2017-08-09 00:45] LABS: Pregnancy Test - Urine (BHCG) Negative (Negative); Pregu Control Background? CLEAR/WHITE (CLR/WHITE); Pregu Control Bar Appear? YES (CONTROL BAR); Specific Gravity 1.013 (1.002-1.036)
[2017-08-09] MEDS ORDERED: EPINEPHrine 1 MG/ML AMP IVP PRN (01:23)
[2017-08-09] MEDS ORDERED: Lorazepam 2 MG/ML VIAL SLOW IVP PRN (01:38)
[2017-08-09] MEDS ORDERED: Sodium Chloride 0.9% 1,000 ML IV SCH (01:45)
[2017-08-09] MEDS: methylPREDNISolone Sod Succ/PF 125 MG/2 ML VIAL IVP SCH ×2 (01:58→08:10)
[2017-08-09] MEDS: diphenhydrAMINE 50 MG/ML VIAL IVP SCH ×2 (02:04→08:10)
[2017-08-09 03:27] VITALS: BMI 38.7
[2017-08-09] MEDS ORDERED: diphenhydrAMINE 50 MG/ML VIAL IVP SCH (06:00)
[2017-08-09] MEDS ORDERED: methylPREDNISolone Sod Succ/PF 125 MG/2 ML VIAL IVP SCH (06:00)
[2017-08-09] MEDS ORDERED: Acetaminophen 325 MG TAB PO PRN (08:00)
[2017-08-09] MEDS ORDERED: EPINEPHRINE 0.3 MG IJ PRN (08:00)
[2017-08-09] MEDS ORDERED: HYDROcodone/Acetaminophen 5/325 mg Tablet PO PRN ×2 (08:00)
[2017-08-09] MEDS ORDERED: Ondansetron HCl/PF 4 MG/2 ML Vial IVP PRN (08:00)
[2017-08-09] MEDS ORDERED: Ondansetron ODT 4 MG TAB PO PRN (08:00)
--- NOTE | 2017-08-09 08:01 | RAD ---
FRONTAL RADIOGRAPH CHEST: DATE: 08/09/17. COMPARISON: 06/12/17. HISTORY: Chest pain and vomiting. FINDINGS: No pneumothorax, pleural fluid, focal consolidation, or alveolar edema. Heart and mediastinal contou rs appear grossly unremarkable. IMPRESSION: No acute findings. POS: [facility]
--- NOTE | 2017-08-09 08:05 | RAD ---
TWO VIEWS OF THE NECK: DATE: 08/09/17. COMPARISON: None. HISTORY: Vomiting, through tightness. FINDINGS: The epiglottis is not well assessed on the lateral examination as the ventral aspect of the epiglotti s is opposed to the soft tissues of the submandibular region. No prevertebral soft tissue swelling. No radiopaque foreign body. If symptoms persist, CT may be beneficial. IMPRESSION: No radiopaque foreign body seen. NO prevertebral soft tissue swelling. POS: [facility]
[2017-08-09] MEDS ORDERED: Epinephrine [Epipen] 0.3 MG SC PRN (08:15)
[2017-08-09] MEDS ORDERED: Non-Formulary Item 1 EACH (Cetirizine Hcl [Zyrtec] 10 MG) PO SCH (09:00)
[2017-08-09] MEDS ORDERED: Famotidine/PF 20 mg/2ml Vial SLOW IVP SCH (09:00)
[2017-08-09] MEDS ORDERED: Non-Formulary Item 1 EACH (Ferrous Sulfate [Iron] 325 MG) PO SCH (09:00)
[2017-08-09] MEDS ORDERED: Non-Formulary Item 1 EACH (Fluoxetine Hcl [Prozac] 60 MG) PO SCH (09:00)
[2017-08-09] MEDS ORDERED: Non-Formulary Item 1 EACH (Buspirone Hcl [Buspirone Hcl] 15 MG) PO SCH (09:00)
[2017-08-09] MEDS: busPIRone HCl 5 MG TAB PO SCH (12:50)
[2017-08-09] MEDS: Famotidine 20 MG TAB PO SCH ×2 (12:50→19:58)
[2017-08-09] MEDS: Ferrous Sulfate 325 MG TAB PO SCH (12:50)
[2017-08-09] MEDS: FLUoxetine HCl 20 MG CAP PO SCH (12:51)
[2017-08-09] MEDS: Loratadine 10 MG TAB PO SCH (12:51)
--- NOTE | 2017-08-09 14:15 | HP ---
DATE OF ADMISSION: 08/09/2017 TIME OF SERVICE: 0740. PRIMARY CARE PHYSICIAN: Giovanni. CHIEF COMPLAINT: Shortness of breath. HISTORY OF PRESENT ILLNESS: Ms. Durán is a pleasant 31-year-old -Polish female with histor y of severe peanut allergy, anxiety, and depression who presented to the emergency department late la st night for evaluation of chest tightness and shortness of breath. States she was sitting in a chair at home and had acute onset of the sensation. She called EMS who g ave her 25 mg IV Benadryl. She had no cough or sputum. No fevers or chills. No nausea, vomiting, d iarrhea, constipation, did have a sensation that her upper chest was tight. Per the record, she was unable to talk last night, stable talking in a somewhat raspy voice today. She is unable to swallow. No other current complaints. PAST MEDICAL HISTORY: 1. Anxiety/depression. 2. Sever peanut allergy. PAST SURGICAL HISTORY: Includes; 1. Tonsillectomy, adenoidectomy, remotely. 2. Bilateral axillary sweat gland removal. 3. x2 remotely. HOME MEDICATIONS: 1. Xanax 0.25 mg p.o. p.r.n. 2. Trazodone 50 mg p.o. at bedtime. 3. Fluoxetine 20 mg daily. 4. Prednisone 50 mg p.o. q.a.m. 5. Benadryl 25 mg p.o. q.6 hours p.r.n. 6. EpiPen p.r.n. 7. Zantac 150 mg p.o. b.i.d. 8. Zofran ODT 4 mg p.o. q.8 hours p.r.n. nausea. ALLERGIES: PEANUTS and SEAFOOD. FAMILY HISTORY: Negative for clotting or bleeding disorder. No immune dysfunction. SOCIAL HISTORY: Negative for habits x3. She lives at home with family. REVIEW OF SYSTEMS: All systems reviewed and negative except listed as per HPI. PHYSICAL EXAMINATION: VITAL SIGNS: Temperature 98.4; pulse initially was 127, now down to 88; blood pressure 118/79; respi ratory rate initially 30, now down to 24; satting 100% on room air. GENERAL: She is awake. She is alert and oriented x3. She is a pleasant -Polish female who appears to be in no distress. HEENT: Normocephalic, atraumatic. Pupils equal, round, react to light bilaterally. Mucous membrane s are moist. She had no visible lesion, no thrush. NECK: Supple. She had no lymphadenopathy, JVD, or thyromegaly. She has normal carotid upstrokes. There are no bruits, no stridor. LUNGS: Clear to auscultation bilaterally. No prolonged expiratory phase. No wheezing, rales or rho nchi. CARDIOVASCULAR: Normal S1, S2. She is nontachycardic. She has no audible murmurs. ABDOMEN: Soft, it is nontender, nondistended. No masses or organomegaly. EXTREMITIES: Show no cyanosis, no clubbing, no edema with 2+ peripheral pulse in the dorsalis pedis and posterior tibial and radial arteries. SKIN: Warm, moist, and well perfused. She has no rash or lesion. MUSCULOSKELETAL: Normal to inspection. All joints appear normal. There is no evidence of inflammat ion or palpable effusions. NEUROLOGIC: Cranial nerves II-XII are grossly intact. She has no focal neurologic deficits. Per sp eech therapy, she has no gag reflex. She is not able to initiate swallowing. LABORATORY DATA: None. test was negative. Chest x-ray showed no acute cardiopulmonary disease. A soft tissue neck x-ray showed no edema. ASSESSMENT AND PLAN: 1. Functional dysphagia. Unclear etiology. She is able to talk today, but not able to swallow. Sh e is n.p.o., watch her overnight. 2. Acute shortness of breath: Anxiety versus anaphylactoid reaction. We will continue to watch. 3. History of anxiety/depression. We will continue home medication when she is able to take p.o. 4. Headache. We will use IV morphine p.r.n.
[2017-08-09] MEDS: Sodium Chloride 0.9% 1,000 ML IV SCH ×2 (16:15→21:18)
[2017-08-09] MEDS ORDERED: Montelukast Sodium 10 mg Tablet PO SCH (21:00)
[2017-08-09] MEDS ORDERED: Non-Formulary Item 1 EACH (Trazodone Hcl [Trazodone Hcl] 100 MG) PO SCH (21:00)
[2017-08-09] MEDS ORDERED: traZODone HCl 50 MG TAB PO SCH (21:00)
[2017-08-09] MEDS ORDERED: Lorazepam 2 MG/ML VIAL SLOW IVP SCH (21:45)
[2017-08-10 08:07] VITALS: TEMP 98.2
[2017-08-10] MEDS: Famotidine 20 MG TAB PO SCH (10:42)
[2017-08-10] MEDS: FLUoxetine HCl 20 MG CAP PO SCH (10:43)
[2017-08-10] MEDS: busPIRone HCl 5 MG TAB PO SCH (10:44)
[2017-08-10] MEDS: Loratadine 10 MG TAB PO SCH (10:45)
[2017-08-10] MEDS: Ferrous Sulfate 325 MG TAB PO SCH (10:45)
[2017-08-10] MEDS: Sodium Chloride 0.9% 1,000 ML IV SCH (10:50)
[2017-08-10 11:51] VITALS: BP 119/80
--- NOTE | 2017-08-10 15:08 | DIS ---
DATE OF ADMISSION: 08/09/2017 DATE OF DISCHARGE: 08/10/2017 PRIMARY CARE PHYSICIAN: None . DISCHARGE DIAGNOSES: 1. Possible allergic reaction. 2. Dysphagia, resolved. CONSULTATIONS: None. PROCEDURES: None. HISTORY AND PHYSICAL: Ms. Durán is a 31-year-old female with a history of severe PEANUT allergy and episodes for admission before for inability to swallow, who presented to the emergency department fo r the same. She was seen at home and suddenly developed a tightness in her throat, came to the emerg ency department for evaluation. She is unable to speak. She is unable to swallow. We are subsequen tly called for admit. The patient was accepted by the net front end developer and held over for the morning admis agustin. HOSPITAL COURSE: The patient was seen and examined by me on the floor. She was able to swallow her secretions, but was not drooling. She had no stridor and was otherwise stable. She was placed on IV fluids and kept n.p.o. and Speech Therapy evaluation was requested. Later that day, the patient was seen by Speech Therapy. The patient had no gag reflex and unable to initiate a swallow mechanism. She was kept n.p.o. overnight. Today, 08/10/2017, she was able to speak better. She was able to swallow her own saliva and passed h er swallow test. She was able to eat a pureed diet and tolerating a regular diet well this afternoon . She is subsequently stable for discharge with outpatient followup. PHYSICAL EXAMINATION: The patient was seen and examined on the day of discharge. Discharge plan and disposition discussed with the patient at the patient's bedside. DISCHARGE MEDICATIONS: 1. Buspirone 15 mg daily. 2. Zyrtec 10 mg daily. 3. EpiPen p.r.n. 4. Iron sulfate 325 mg daily. 5. Prozac 60 mg daily. 6. Singulair 10 mg at bedtime. 7. Trazodone 100 mg at bedtime. FOLLOWUP APPOINTMENTS: Primary care physician within a week. DISCHARGE ACTIVITY: As tolerated. DISCHARGE DIET: Regular. DISPOSITION: The patient will be discharged home via private vehicle.
== END 2017-08-10 15:25 | disposition home or self-care (01) ==
LOC: ERS 20:49 → 2SW 08-09 00:06
PROVIDERS: ADMIT Internal Medicine; ATTEND Internal Medicine
DX: R13.10 Dysphagia, unspecified (principal); F41.8 Other specified anxiety disorders; R51 Headache; Z91.010 Allergy to peanuts; Z91.013 Allergy to seafood; Z79.899 Other long term (current) drug therapy
CPT/HCPCS: 70360; 71045; 81025; 93005; 94760; 96361; 96372; 96374; 96375; 96376; A4216; G0378; G8996-GN-CN; G8997-GN-CI; J0171; J1200; J2060; J2270; J2930; S0028

== ENCOUNTER 2017-09-05 19:23 | Emergency (ER) | payer BC ==
[2017-09-05] MEDS ORDERED: methylPREDNISolone Sod Succ/PF 125 MG/2 ML VIAL ONE (19:39)
[2017-09-05] MEDS ORDERED: Famotidine/PF 20 mg/2ml Vial SLOW IVP SCH (20:00)
[2017-09-05] MEDS ORDERED: diphenhydrAMINE 50 MG/ML VIAL ONE (20:08)
[2017-09-05] MEDS ORDERED: EPINEPHrine 1 MG/10 ML Abboject SYRINGE ONE (20:18)
[2017-09-05] MEDS ORDERED: EPINEPHrine 1 MG/ML AMP ONE (20:21)
[2017-09-05] MEDS ORDERED: Lorazepam 2 MG/ML VIAL ONE (21:31)
[2017-09-05] MEDS ORDERED: Lidocaine 4% Topical Sol 50 ML BOT ONE (22:57)
== END 2017-09-05 23:40 | disposition home or self-care (01) ==
LOC: ERS 19:23
DX: T78.40XA Allergy, unspecified, initial encounter (principal); F41.9 Anxiety disorder, unspecified; F32.9 Major depressive disorder, single episode, unspecified; Z79.899 Other long term (current) drug therapy
CPT/HCPCS: 31525; 96372; 96374; 96375; J0171; J1200; J2001; J2060; J2930; S0028

== ENCOUNTER 2017-09-21 19:40 | Emergency (ER) | payer BC ==
[2017-09-21] MEDS ORDERED: methylPREDNISolone Sod Succ/PF 125 MG/2 ML VIAL ONE (19:53)
[2017-09-21] MEDS ORDERED: Famotidine/PF 20 mg/2ml Vial ONE (19:53)
[2017-09-21] MEDS ORDERED: diphenhydrAMINE 50 MG/ML VIAL ONE (19:55)
[2017-09-21] MEDS ORDERED: Lorazepam 2 MG/ML VIAL ONE ×2 (20:04→20:52)
[2017-09-21] MEDS ORDERED: EPINEPHrine 1 MG/ML AMP ONE (20:04)
[2017-09-21 20:09] LABS: #Eosinphils 0.1 thou/uL (0.0-0.7); #Lymphocytes 2.3 thou/uL (1.20-3.40); #Monocytes 0.6 thou/uL (0.11-0.59); #Neutrophils 4.5 thou/uL (1.40-6.50); %Basophils 0.6 % (0.0-1.0); %Lymphocytes 30.5 % (21.0-51.0); %Monocytes 8.4 % (0.0-10.0); %Neutrophils 59.6 % (42.0-75.0); Mean Corpuscular HGB CONC 35.2 g/dL (32.0-36.0); Mean Corpuscular Hemoglobin 30.2 pg (27.0-31.0); Mean Corpuscular Volume 85.8 fL (78.0-98.0); Platelet Count 219 thou/uL (130-400); RBC Distribution Width 12.7 % (11.5-14.5); Red Blood Cell (RBC) Count 3.99 mill/uL (4.20-5.40); White Blood Cell (WBC) Count 7.5 thou/uL (4.8-10.8)
[2017-09-21 20:30] LABS: ALT (SGPT) 19 U/L (8-55); AST (SGOT) 22 U/L (5-34); Albumin 4.2 g/dL (3.5-5.0); Alkaline Phosphatase 63 U/L (40-150); Anion Gap 12 mmol/L (10-20); BUN (Urea Nitrogen) 9 mg/dL (7.0-18.7); Bilirubin, Total 0.4 mg/dL (0.2-1.2); Calc. Creatinine Clearance 0 mL/min (70-130); Calcium 9.7 mg/dL (7.8-10.44); Carbon Dioxide 20 mmol/L (22-29); Chloride 108 mmol/L (98-107); Estimated GFR-MDRD Greater than 90; Globulin 3.5 g/dL (2.4-3.5); Glucose 119 mg/dL (70-105); Magnesium 1.7 mg/dL (1.6-2.6); Protein, Total 7.7 g/dL (6.0-8.3); Sodium 137 mmol/L (136-145)
[2017-09-21] MEDS ORDERED: Lidocaine Viscous Sol 2% 15 ml UD Cup ONE (20:36)
[2017-09-21] MEDS ORDERED: Benzocaine 20% Spray 60 ML CAN ONE (20:36)
[2017-09-21 22:55] LABS: Bilirubin Negative (Negative); Blood, Urine Negative (Negative); Clarity CLEAR (Clear); Glucose, Urine (Dipstick) Negative (Negative); Leukocyte Negative (Negative); Nitrite Negative (Negative); Protein, Urine (Dipstick) Negative (Neg-Trace); Specific Gravity, Urine 1.012 (1.002-1.036)
== END 2017-09-21 23:51 | disposition home or self-care (01) ==
LOC: ERS 19:40
DX: T78.40XA Allergy, unspecified, initial encounter (principal); F32.9 Major depressive disorder, single episode, unspecified; F41.9 Anxiety disorder, unspecified; Z79.899 Other long term (current) drug therapy
CPT/HCPCS: 31575; 80053; 81003; 82550; 83735; 85025; 94760; 96361; 96372; 96374; 96375; J0171; J1200; J2060; J2930; S0028

== ENCOUNTER 2017-10-03 19:04 | Emergency (ER) | payer BC | END 2017-10-03 20:26 | disposition left against medical advice (07) | LOC: ERS 19:04 | DX: Z53.21 Procedure and treatment not carried out due to patient leaving prior to being seen by health care provider (principal) ==

== ENCOUNTER 2017-12-29 16:51 | Emergency (ER) | payer BC, OTHER ==
[2017-12-29 17:21] LABS: #Eosinphils 0.1 thou/uL (0.0-0.7); #Lymphocytes 1.9 thou/uL (1.20-3.40); #Monocytes 0.5 thou/uL (0.11-0.59); #Neutrophils 4.1 thou/uL (1.40-6.50); %Basophils 0.5 % (0.0-1.0); %Eosinophils 1.7 % (0.0-10.0); %Lymphocytes 28.9 % (21.0-51.0); %Monocytes 7.7 % (0.0-10.0); %Neutrophils 61.3 % (42.0-75.0); Hemoglobin 11.8 g/dL (12.0-16.0); Mean Corpuscular HGB CONC 33.5 g/dL (32.0-36.0); Mean Corpuscular Hemoglobin 29.7 pg (27.0-31.0); Mean Corpuscular Volume 88.6 fL (78.0-98.0); Mean Platelet Volume 8.1 fL (7.4-10.4); Platelet Count 231 thou/uL (130-400); RBC Distribution Width 12.9 % (11.5-14.5); Red Blood Cell (RBC) Count 3.97 mill/uL (4.20-5.40); White Blood Cell (WBC) Count 6.7 thou/uL (4.8-10.8)
[2017-12-29 17:33] LABS: BHCG - Serum Negative (NEGATIVE); Pregs Control Background? CLEAR/WHITE (CLR/WHITE); Pregs Control Bar Appear? YES (CONTROL BAR)
[2017-12-29 17:34] LABS: Bilirubin Negative (Negative); Blood, Urine Negative (Negative); Clarity CLEAR (Clear); Glucose, Urine (Dipstick) Negative (Negative); Leukocyte Large (Negative); Nitrite Negative (Negative); Protein, Urine (Dipstick) Negative (Neg-Trace); Specific Gravity, Urine 1.014 (1.002-1.036); pH, Urine 6.5 (5.0-9.0)
[2017-12-29 17:36] LABS: Bacteria/HPF None Seen HPF (None Seen); Hyaline Casts/LPF 0-3 HYALINE CAST LPF (0-3 Hyaline); Pathc Cast-AUWi Flag 0.58 (0-2.49)
[2017-12-29 17:36] LABS: ALT (SGPT) 35 U/L (8-55); AST (SGOT) 30 U/L (5-34); Albumin 3.8 g/dL (3.5-5.0); Alkaline Phosphatase 57 U/L (40-150); Anion Gap 13 mmol/L (10-20); BUN (Urea Nitrogen) 8 mg/dL (7.0-18.7); Bilirubin, Total 0.4 mg/dL (0.2-1.2); Calc. Creatinine Clearance 0 mL/min (70-130); Calcium 8.7 mg/dL (7.8-10.44); Carbon Dioxide 20 mmol/L (22-29); Chloride 107 mmol/L (98-107); Estimated GFR-MDRD Greater than 90; Globulin 3.3 g/dL (2.4-3.5); Glucose 163 mg/dL (70-105); Protein, Total 7.1 g/dL (6.0-8.3); Sodium 137 mmol/L (136-145)
[2017-12-29 17:44] LABS: Cocaine Metabolite Screen Not Detected (NotDetected); Medtox Reader # READER 1; Methamphetamine Not Detected (NotDetected); Phencyclidine (PCP) Not Detected (NotDetected); THC/Cannabinoid Screen Not Detected (NotDetected)
[2017-12-29 17:45] LABS: Amphetamine Not Detected (NotDetected); Barbiturates Screen Not Detected (NotDetected); Benzodiazepine Screen Detected (NotDetected); Medtox Control Line Valid? VALID (VALID); Methadone Not Detected (NotDetected); Opiate Screen Not Detected (NotDetected); Oxycodone Screen Not Detected (NotDetected); Tricyclic Screen Not Detected (NotDetected)
[2017-12-29 17:53] LABS: Crystals/HPF None Seen HPF (Negative); Oval Fat Bodies/HPF None Seen HPF (None Seen); Renal Epithelial None Seen HPF (0-3); Transitional Epithelial NONE SEEN HPF (0-3); Trichomonas/HPF Rare HPF (None Seen)
== END 2017-12-29 20:11 | disposition home or self-care (01) ==
LOC: ERS 16:51
DX: T78.1XXA Other adverse food reactions, not elsewhere classified, initial encounter (principal); N39.0 Urinary tract infection, site not specified; F41.9 Anxiety disorder, unspecified; F32.9 Major depressive disorder, single episode, unspecified; Z79.899 Other long term (current) drug therapy
CPT/HCPCS: 36415; 80053; 80306; 81003; 81015; 84703; 85025; 96360; 96361

== ENCOUNTER 2018-01-24 08:41 | Day surgery (SDC) | payer OTHER ==
[2018-01-23 10:23] VITALS: BMI 40.5
[2018-01-24 09:43] LABS: Hemoglobin 12.3 g/dL (12.0-16.0)
[2018-01-24] MEDS ORDERED: EPINEPHrine 1 MG/ML AMP ONE (09:54)
[2018-01-24 10:00] LABS: BHCG - Serum Negative (NEGATIVE); Pregs Control Background? CLEAR/WHITE (CLR/WHITE); Pregs Control Bar Appear? YES (CONTROL BAR)
[2018-01-24] MEDS ORDERED: Fentanyl 100 MCG/2 ML VIAL ONE (12:05)
[2018-01-24] MEDS ORDERED: Midazolam HCl 2 mg/2 ml Vial ONE (12:05)
[2018-01-24] MEDS ORDERED: Succinylcholine Chloride 20 MG/ML 10 ml SYRINGE FS ONE (13:19)
[2018-01-24] MEDS ORDERED: Lidocaine 1% PF 5 ML VIAL ONE (13:19)
[2018-01-24] MEDS ORDERED: PROPOFOL 200 MG/20 ML VIAL ONE (13:19)
--- NOTE | 2018-01-24 16:41 | OP ---
DATE OF PROCEDURE: 01/24/2018 PREOPERATIVE DIAGNOSIS: Intermittent anaphylaxis. POSTOPERATIVE DIAGNOSIS: Intermittent anaphylaxis. PROCEDURES PERFORMED: 1. Direct laryngoscopy. 2. Rigid bronchoscopy. FINDINGS: Everything appeared completely normal without any foreign body or obvious structural problems. PROCEDURE IN DETAIL: After the consent was obtained, the patient was identified, brought to the operating room and placed on the operating room table in supine position. General endotracheal anesthesia was obtained with a jet ventilating tube. The patient was positioned for laryngoscopy. Systematic laryngoscopy was performed, which failed to reveal any abnormalities in particularly the vocal cords. The vocal cord motion and paralaryngeal anatomy was completely normal without any evidence of inflammation or neurologic dysfunction. We then sprayed the cords with topical lidocaine and proceeded with bronchoscopy with a 0-degree rigid bronchoscope. We proceeded all the way on the length of the trachea and examined both proximal and distal bronchi. No abnormalities were identified. In particular, there was no foreign body. The patient was awakened, taken to recovery room, and remained in stable condition prior to discharge. Job ID: [id number]
== END 2018-01-24 12:15 | disposition home or self-care (01) ==
LOC: SDC 08:41
PROVIDERS: ATTEND Specialist
PROC: 0BJ08ZZ Inspection of Tracheobronchial Tree, Via Natural or Artificial Opening Endoscopic (ICD-10-PCS; principal; 2018-01-24)
DX: K21.9 Gastro-esophageal reflux disease without esophagitis (principal); R49.0 Dysphonia; R05 Cough; R09.82 Postnasal drip; Z91.011 Allergy to milk products; Z91.010 Allergy to peanuts; Z91.013 Allergy to seafood; Z91.048 Other nonmedicinal substance allergy status; Z79.899 Other long term (current) drug therapy
CPT/HCPCS: 36415; 84703; 85014; 85018; J0171; J2001; J2250; J2704; J3010

== ENCOUNTER 2018-04-04 21:14 | Emergency (ER) | payer OTHER ==
[2018-04-04] MEDS ORDERED: methylPREDNISolone Sod Succ/PF 125 MG/2 ML VIAL ONE ×2 (22:29→22:47)
[2018-04-04] MEDS ORDERED: Famotidine/PF 20 mg/2ml Vial ONE ×2 (22:29→22:47)
[2018-04-04] MEDS ORDERED: diphenhydrAMINE 50 MG/ML VIAL ONE (22:29)
== END 2018-04-05 00:23 | disposition home or self-care (01) ==
LOC: ERS 21:14
DX: T78.1XXA Other adverse food reactions, not elsewhere classified, initial encounter (principal); F32.9 Major depressive disorder, single episode, unspecified; F41.9 Anxiety disorder, unspecified; Z79.899 Other long term (current) drug therapy
CPT/HCPCS: 93005; 94760; 96374; 96375; J1200; J2930; S0028

== ENCOUNTER 2018-06-10 22:05 | Emergency (ER) | payer OTHER ==
[2018-06-10 23:25] LABS: Anion Gap 10 mmol/L (10-20); BUN (Urea Nitrogen) 5 mg/dL (7.0-18.7); Calc. Creatinine Clearance 0 mL/min (70-130); Calcium 8.5 mg/dL (7.8-10.44); Carbon Dioxide 23 mmol/L (22-29); Chloride 108 mmol/L (98-107); Estimated GFR-MDRD Greater than 90; Glucose 88 mg/dL (70-105); Sodium 138 mmol/L (136-145)
--- NOTE | 2018-06-10 23:26 | CT ---
CT brain noncontrast: HISTORY: 32-year-old female status post acute seizure FINDINGS: There is no evidence of acute intra-axial or extra-axial hemorrhage. There is no midline shift or any other mass effect. There is no extra-axial fluid collection. There is no evidence of obstructive hydrocephalus. Calvarium is intact. IMPRESSION: No acute intracranial findings.
--- NOTE | 2018-06-10 23:33 | CT ---
CT cervical spine noncontrast: Date: 06/10/2018 HISTORY: cervical trauma FINDINGS: Alignment is normal. Vertebral body heights are maintained. No prevertebral soft tissue swelling. No perched or jumped facets. No fracture or any other major osseous abnormality. IMPRESSION: Negative
[2018-06-11 00:01] LABS: Potassium 2.9 mmol/L (3.5-5.1)
[2018-06-11] MEDS ORDERED: Potassium Chloride 20 MEQ/100 ML PREMIX BAG ONE (00:25)
[2018-06-11] MEDS ORDERED: Potassium Bicarbonate/Cit Ac 25 MEQ TAB ONE (00:27)
[2018-06-11] MEDS ORDERED: Acetaminophen 500 MG TAB ONE (00:38)
== END 2018-06-11 01:14 | disposition home or self-care (01) ==
LOC: ERS 22:05
DX: R56.9 Unspecified convulsions (principal); S16.1XXA Strain of muscle, fascia and tendon at neck level, initial encounter; F41.9 Anxiety disorder, unspecified; F32.9 Major depressive disorder, single episode, unspecified; Z79.899 Other long term (current) drug therapy
CPT/HCPCS: 70450; 72125; 80048; 93005; J3480

== ENCOUNTER 2018-06-13 04:54 | Emergency (ER) | payer OTHER ==
[2018-06-13 05:23] LABS: Bilirubin Negative (Negative); Blood, Urine Negative (Negative); Clarity CLEAR (Clear); Glucose, Urine (Dipstick) Negative (Negative); Leukocyte Negative (Negative); Nitrite Negative (Negative); Protein, Urine (Dipstick) Negative (Neg-Trace); Specific Gravity, Urine 1.007 (1.002-1.036); Urobilinogen 0.2 mg/dL (0.2-1.0)
[2018-06-13] MEDS ORDERED: Acetaminophen 500 MG TAB ONE (05:44)
== END 2018-06-13 05:54 | disposition home or self-care (01) ==
LOC: ERS 04:54
DX: R56.9 Unspecified convulsions (principal); F32.9 Major depressive disorder, single episode, unspecified; F41.9 Anxiety disorder, unspecified; G47.00 Insomnia, unspecified; Z79.899 Other long term (current) drug therapy
CPT/HCPCS: 81003; 99284

== ENCOUNTER 2018-07-15 05:34 | Emergency (ER) | payer OTHER ==
--- NOTE | 2018-07-20 11:34 | EKG ---
Test Reason : Blood Pressure : / mmHG Vent. Rate : 074 BPM Atrial Rate : 074 BPM P-R Int : 178 ms QRS Dur : 100 ms QT Int : 400 ms P-R-T Axes : 038 040 011 degrees QTc Int : 444 ms Normal sinus rhythm T wave abnormality, consider anterior ischemia Abnormal ECG Baseline Artifact Present Confirmed by HUGO SWARTZ ([id number]), supervising editor news reel KARLO LEON ([id number]) on 07/20/2018 11:33:57 AM Referred By: Confirmed By:HUGO SWARTZ
== END 2018-07-15 06:15 | disposition home or self-care (01) ==
LOC: ERS 05:34
DX: R56.9 Unspecified convulsions (principal); F32.9 Major depressive disorder, single episode, unspecified; G47.00 Insomnia, unspecified; Z79.899 Other long term (current) drug therapy
CPT/HCPCS: 93005

== ENCOUNTER 2018-07-25 22:42 | Emergency (ER) | payer OTHER ==
[2018-07-25 23:11] LABS: Bilirubin Negative (Negative); Blood, Urine Large (Negative); Clarity CLOUDY (Clear); Glucose, Urine (Dipstick) Negative (Negative); Leukocyte Small (Negative); Nitrite Negative (Negative); Protein, Urine (Dipstick) Negative (Neg-Trace); Specific Gravity, Urine 1.016 (1.002-1.036); pH, Urine 5.5 (5.0-9.0)
[2018-07-25 23:12] LABS: #Basophils 0.1 thou/uL (0.0-0.2); #Eosinphils 0.2 thou/uL (0.0-0.7); #Lymphocytes 1.7 thou/uL (1.20-3.40); #Monocytes 0.6 thou/uL (0.11-0.59); #Neutrophils 3.4 thou/uL (1.40-6.50); %Basophils 1.6 % (0.0-1.0); %Lymphocytes 27.9 % (21.0-51.0); %Monocytes 9.5 % (0.0-10.0); Mean Corpuscular HGB CONC 34.4 g/dL (32.0-36.0); Mean Corpuscular Hemoglobin 31.6 pg (27.0-31.0); Mean Corpuscular Volume 91.8 fL (78.0-98.0); Mean Platelet Volume 7.5 fL (7.4-10.4); Platelet Count 219 thou/uL (130-400); RBC Distribution Width 11.2 % (11.5-14.5); Red Blood Cell (RBC) Count 3.79 mill/uL (4.20-5.40)
[2018-07-25 23:12] LABS: Bacteria/HPF None Seen HPF (None Seen); Hyaline Casts/LPF 0-3 HYALINE CAST LPF (0-3 Hyaline); Pregnancy Test - Urine (BHCG) Negative (Negative); RBC/HPF GREATER THAN 50-TNTC HPF (0-3); Specific Gravity 1.016 (1.002-1.036); Squamous Epithelial 0-3 HPF (0-3)
[2018-07-25 23:13] LABS: Pregu Control Background? CLEAR/WHITE (CLR/WHITE); Pregu Control Bar Appear? YES (CONTROL BAR)
[2018-07-25] MEDS ORDERED: Ketorolac Tromethamine 60 MG/2 ML VIAL ONE (23:21)
== END 2018-07-26 00:02 | disposition home or self-care (01) ==
LOC: ERS 22:42
DX: N93.8 Other specified abnormal uterine and vaginal bleeding (principal); F32.9 Major depressive disorder, single episode, unspecified; F41.9 Anxiety disorder, unspecified; Z79.899 Other long term (current) drug therapy
CPT/HCPCS: 36415; 81003; 81015; 81025; 85025; 96372; J1885

== ENCOUNTER 2018-08-28 17:13 | Emergency (ER) | payer OTHER ==
[2018-08-28 18:13] LABS: #Eosinphils 0.2 thou/uL (0.0-0.7); #Lymphocytes 2.3 thou/uL (1.20-3.40); #Monocytes 0.9 thou/uL (0.11-0.59); #Neutrophils 6.3 thou/uL (1.40-6.50); %Basophils 0.3 % (0.0-1.0); %Eosinophils 1.8 % (0.0-10.0); %Lymphocytes 23.6 % (21.0-51.0); %Monocytes 9.1 % (0.0-10.0); %Neutrophils 65.2 % (42.0-75.0); Hemoglobin 11.9 g/dL (12.0-16.0); Mean Corpuscular HGB CONC 33.9 g/dL (32.0-36.0); Mean Corpuscular Hemoglobin 30.8 pg (27.0-31.0); Mean Platelet Volume 7.2 fL (7.4-10.4); Platelet Count 243 thou/uL (130-400); RBC Distribution Width 11.3 % (11.5-14.5); Red Blood Cell (RBC) Count 3.86 mill/uL (4.20-5.40); White Blood Cell (WBC) Count 9.6 thou/uL (4.8-10.8)
[2018-08-28 18:39] LABS: ALT (SGPT) 12 U/L (8-55); AST (SGOT) 16 U/L (5-34); Albumin 3.5 g/dL (3.5-5.0); Alkaline Phosphatase 61 U/L (40-150); Anion Gap 12 mmol/L (10-20); BUN (Urea Nitrogen) 9 mg/dL (7.0-18.7); Bilirubin, Total 0.3 mg/dL (0.2-1.2); Calc. Creatinine Clearance 0 mL/min (70-130); Calcium 8.5 mg/dL (7.8-10.44); Carbon Dioxide 23 mmol/L (22-29); Chloride 105 mmol/L (98-107); Estimated GFR-MDRD Greater than 90; Globulin 3.2 g/dL (2.4-3.5); Glucose 93 mg/dL (70-105); Potassium 3.5 mmol/L (3.5-5.1); Protein, Total 6.7 g/dL (6.0-8.3); Sodium 136 mmol/L (136-145)
[2018-08-28] MEDS ORDERED: Morphine 4 MG/ML VIAL ONE (20:02)
[2018-08-28] MEDS ORDERED: Fentanyl 100 MCG/2 ML VIAL ONE ×2 (20:02→21:06)
--- NOTE | 2018-08-28 20:37 | RAD ---
CHEST ONE VIEW: 08/28/18 HISTORY: Chest pain. COMPARISON: Chest radiograph 08/09/17. FINDINGS: Lungs are clear. No pneumothorax. No effusion. Cardiac silhouette and mediastinal contours are within normal limits. No acute osseous abnormality. IMPRESSION: No acute intrathoracic abnormality. POS: [facility]
[2018-08-28 21:28] LABS: BHCG - Serum Negative (NEGATIVE); Pregs Control Background? CLEAR/WHITE (CLR/WHITE); Pregs Control Bar Appear? YES (CONTROL BAR)
[2018-08-28 21:43] LABS: Bilirubin Negative (Negative); Blood, Urine Negative (Negative); Clarity Clear (Clear); Glucose, Urine (Dipstick) Normal (Negative); Leukocyte Negative Leu/uL (Negative); Nitrite Negative (Negative); Protein, Urine (Dipstick) Negative (Neg-Trace); Urobilinogen Normal mg/dL (Less than 2)
[2018-08-28 21:45] LABS: Pregnancy Test - Urine (BHCG) Negative (Negative)
--- NOTE | 2018-08-28 21:45 | CT ---
Exam: CT brain PROVIDED CLINICAL HISTORY: Syncope COMPARISON: 06/10/2018 FINDINGS: The ventricular system is normal in size and morphology. No evidence for intracranial hemorrhage or mass effect. The extracranial soft tissues and osseous structures demonstrate no evidence for an acute abnormality. IMPRESSION: No evidence for intracranial hemorrhage or mass effect.
[2018-08-28 21:46] LABS: Pregu Control Background? CLEAR/WHITE (CLR/WHITE); Pregu Control Bar Appear? YES (CONTROL BAR); Specific Gravity 1.012 (1.002-1.036)
--- NOTE | 2018-08-28 21:55 | CT ---
EXAM: CT cervical spine PROVIDED CLINICAL HISTORY: Fall COMPARISON: 06/10/2018 FINDINGS: No evidence for fracture or traumatic subluxation. No prevertebral soft tissue swelling apparent. Vi sualized lung apices appear clear. IMPRESSION: No evidence for fracture or traumatic subluxation.
--- NOTE | 2018-08-28 22:05 | CT ---
EXAM: CT chest, abdomen and pelvis with IV contrast PROVIDED CLINICAL HISTORY: Trauma FINDINGS: The heart, pericardium and great vessels demonstrate no evidence for traumatic abnormality. Lungs are free of significant opacity. No pleural fluid or pneumothorax apparent. The solid abdominal organs demonstrate no evidence for traumatic abnormality. No bowel dilatation, in flammatory fat stranding, free fluid or free air apparent. The major vascular structures appear normal. Nonspecific fullness in the region of the uterine cervix. Correlate with the physical exam. The osseous structures demonstrate no acute abnormality. Thoracic and lumbar spine sagittal and coron al reconstructions demonstrate normal spinal alignment and maintenance of vertebral body heights. IMPRESSION: No evidence for traumatic abnormality.
[2018-08-28] MEDS ORDERED: Ketorolac Tromethamine 30 MG/ML VIAL ONE (22:13)
[2018-08-28] MEDS ORDERED: Sucralfate 1 GM/10 ML UDCUP ONE (22:42)
--- NOTE | 2018-08-31 14:51 | EKG ---
Test Reason : Blood Pressure : / mmHG Vent. Rate : 077 BPM Atrial Rate : 077 BPM P-R Int : 158 ms QRS Dur : 098 ms QT Int : 418 ms P-R-T Axes : 051 048 027 degrees QTc Int : 473 ms Normal sinus rhythm Possible Left atrial enlargement Borderline ECG Confirmed by LUANA MCKINNON M.D. ([id number]), photograph editor KARLO LEON ([id number]) on 08/31/2018 2:51:03 PM Referred By: Confirmed By:LUANA MCKINNON M.D.
== END 2018-08-28 22:55 | disposition home or self-care (01) ==
LOC: ERS 17:13
DX: R55 Syncope and collapse (principal); S09.90XA Unspecified injury of head, initial encounter; F32.9 Major depressive disorder, single episode, unspecified; F41.9 Anxiety disorder, unspecified; Z79.899 Other long term (current) drug therapy; Z87.442 Personal history of urinary calculi; W22.8XXA Striking against or struck by other objects, initial encounter
CPT/HCPCS: 36415; 70450; 71045; 71260; 72125; 74177; 80053; 81003; 81025; 83690; 84484; 84703; 85025; 86850; 86900; 86901; 93005; 96361; 96374; 96375; 96376; J1885; J2270; J3010; Q9966

== ENCOUNTER 2018-11-23 08:57 | Emergency (ER) | payer OTHER ==
[2018-11-23 09:45] LABS: #Eosinphils 0.2 thou/uL (0.0-0.7); #Lymphocytes 1.2 thou/uL (1.20-3.40); #Monocytes 0.6 thou/uL (0.11-0.59); #Neutrophils 4.2 thou/uL (1.40-6.50); %Basophils 0.3 % (0.0-1.0); %Eosinophils 2.7 % (0.0-10.0); %Lymphocytes 19.4 % (21.0-51.0); %Monocytes 9.5 % (0.0-10.0); %Neutrophils 68.2 % (42.0-75.0); Hemoglobin 12.9 g/dL (12.0-16.0); Mean Corpuscular HGB CONC 34.9 g/dL (32.0-36.0); Mean Corpuscular Hemoglobin 30.9 pg (27.0-31.0); Mean Corpuscular Volume 88.6 fL (78.0-98.0); Mean Platelet Volume 7.6 fL (7.4-10.4); Platelet Count 197 thou/uL (130-400); RBC Distribution Width 11.4 % (11.5-14.5); Red Blood Cell (RBC) Count 4.17 mill/uL (4.20-5.40); White Blood Cell (WBC) Count 6.2 thou/uL (4.8-10.8)
[2018-11-23 10:18] LABS: ALT (SGPT) 12 U/L (8-55); AST (SGOT) 21 U/L (5-34); Albumin 3.8 g/dL (3.5-5.0); Alkaline Phosphatase 58 U/L (40-110); Anion Gap 13 mmol/L (10-20); BUN (Urea Nitrogen) 4 mg/dL (7.0-18.7); Bilirubin, Total 0.5 mg/dL (0.2-1.2); Calc. Creatinine Clearance 0 mL/min (70-130); Calcium 8.7 mg/dL (7.8-10.44); Carbon Dioxide 20 mmol/L (22-29); Chloride 109 mmol/L (98-107); Estimated GFR-MDRD Greater than 90; Globulin 3.1 g/dL (2.4-3.5); Glucose 69 mg/dL (70-105); Potassium 4.1 mmol/L (3.5-5.1); Protein, Total 6.9 g/dL (6.0-8.3); Sodium 138 mmol/L (136-145)
--- NOTE | 2018-11-24 11:28 | RAD ---
Chest one view HISTORY: Altered mental status. Dyspnea. COMPARISON: 08/28/2018. FINDINGS: Cardiac silhouette is magnified by projection. Pulmonary vasculature are unremarkable. Medi astinum is midline. No lobar consolidation or evidence of pneumothorax. library monitor leads overlie the chest. IMPRESSION: No active cardiopulmonary abnormalities are demonstrated.
== END 2018-11-23 10:44 | disposition home or self-care (01) ==
LOC: ERS 08:57
DX: R56.9 Unspecified convulsions (principal); F41.9 Anxiety disorder, unspecified; F32.9 Major depressive disorder, single episode, unspecified; Z87.442 Personal history of urinary calculi
CPT/HCPCS: 36415; 71045; 80053; 85025; 93005

== ENCOUNTER 2018-11-24 10:58 | Inpatient (IN) | payer OTHER ==
[2018-11-24] MEDS ORDERED: levETIRAcetam 500 MG/100 ML PREMIX BAG ONE (11:01)
[2018-11-24] MEDS ORDERED: levETIRAcetam In NaCl (Iso-Os) 1,000 MG in Premix Bag 1 BAG IVPB SCH (11:15)
--- NOTE | 2018-11-24 11:58 | CT ---
CT BRAIN WITHOUT CONTRAST: HISTORY: Altered mental status. COMPARISON: 08/28/2018 FINDINGS: No evidence of infarct, hemorrhage, midline shift or abnormal extraaxial fluid collections is seen. T he ventricular size is normal and the basilar cisterns are patent. The bony calvarium is intact. The visualized paranasal sinuses and mastoid air cells are well aerated. IMPRESSION: No CT evidence of acute intracranial process. POS: [facility]
[2018-11-24 12:26] LABS: #Eosinphils 0.1 thou/uL (0.0-0.7); #Lymphocytes 1.2 thou/uL (1.20-3.40); #Monocytes 0.6 thou/uL (0.11-0.59); #Neutrophils 4.4 thou/uL (1.40-6.50); %Basophils 0.7 % (0.0-1.0); %Eosinophils 1.6 % (0.0-10.0); %Lymphocytes 19.2 % (21.0-51.0); %Monocytes 9.5 % (0.0-10.0); %Neutrophils 68.9 % (42.0-75.0); Hemoglobin 11.8 g/dL (12.0-16.0); Mean Corpuscular HGB CONC 34.9 g/dL (32.0-36.0); Mean Corpuscular Hemoglobin 31.6 pg (27.0-31.0); Mean Corpuscular Volume 90.7 fL (78.0-98.0); Mean Platelet Volume 7.6 fL (7.4-10.4); Platelet Count 186 thou/uL (130-400); RBC Distribution Width 11.4 % (11.5-14.5); Red Blood Cell (RBC) Count 3.74 mill/uL (4.20-5.40); White Blood Cell (WBC) Count 6.3 thou/uL (4.8-10.8)
[2018-11-24 12:44] LABS: ALT (SGPT) 10 U/L (8-55); AST (SGOT) 14 U/L (5-34); Acetaminophen Less than 6.0 mcg/mL (10.0-30.0); Albumin 3.6 g/dL (3.5-5.0); Alcohol Less than 10 mg/dL (Less than 10); Alkaline Phosphatase 54 U/L (40-110); Anion Gap 11 mmol/L (10-20); BUN (Urea Nitrogen) 5 mg/dL (7.0-18.7); Bilirubin, Total 0.4 mg/dL (0.2-1.2); CK (CPK) 43 U/L (29-168); Calc. Creatinine Clearance 0 mL/min (70-130); Calcium 8.5 mg/dL (7.8-10.44); Carbon Dioxide 22 mmol/L (22-29); Chloride 109 mmol/L (98-107); Estimated GFR-MDRD Greater than 90; Globulin 3.2 g/dL (2.4-3.5); Glucose 77 mg/dL (70-105); Lipase 24 U/L (8-78); Potassium 3.5 mmol/L (3.5-5.1); Protein, Total 6.8 g/dL (6.0-8.3); Salicylate Less than 8.0 mg/dL (15.0-30.0); Sodium 138 mmol/L (136-145)
[2018-11-24 12:48] LABS: BHCG - Serum Negative (NEGATIVE); Pregs Control Background? CLEAR/WHITE (CLR/WHITE); Pregs Control Bar Appear? YES (CONTROL BAR)
[2018-11-24 13:26] LABS: Bilirubin Negative (Negative); Blood, Urine Negative (Negative); Clarity Turbid (Clear); Glucose, Urine (Dipstick) Normal (Negative); Leukocyte Negative Leu/uL (Negative); Nitrite Negative (Negative); Protein, Urine (Dipstick) Negative (Neg-Trace); Urobilinogen Normal mg/dL (Less than 2)
[2018-11-24 13:37] LABS: Amphetamine Not Detected (NotDetected); Barbiturates Screen Not Detected (NotDetected); Benzodiazepine Screen Detected (NotDetected); Cocaine Metabolite Screen Not Detected (NotDetected); Medtox Control Line Valid? VALID (VALID); Medtox Reader # READER 4; Methadone Not Detected (NotDetected); Methamphetamine Not Detected (NotDetected); Opiate Screen Not Detected (NotDetected); Oxycodone Screen Not Detected (NotDetected); Phencyclidine (PCP) Not Detected (NotDetected); THC/Cannabinoid Screen Not Detected (NotDetected); Tricyclic Screen Not Detected (NotDetected)
[2018-11-24] MEDS ORDERED: Bisacodyl 5 MG TAB PO PRN (15:14)
[2018-11-24] MEDS ORDERED: Acetaminophen 325 MG TAB PO PRN (15:14)
[2018-11-24] MEDS ORDERED: Acetaminophen 650 MG Suppository PR PRN (15:14)
--- NOTE | 2018-11-24 15:42 | HP ---
PRIMARY CARE PROVIDER: Dr. Adri Rivera. CHIEF COMPLAINT: Seizure. HISTORY OF PRESENT ILLNESS: Ms. Durán is a pleasant 33-year-old lady, who was seen at [facility] on November 24, 2018. The patient is able to provide history. Family members were by the bedside and able to provide collateral history. The patient has a history of seizures. She reportedly has not had any seizures for 5 months. Over the last 3 days, she reportedly had multiple seizures. There was also history of fall with head trauma during one of those seizures. The patient reports that she can feel the seizure, after the neck pain. The patient's mom reports that the seizures are stress-induced. The patient's last seizure was this morning, family reports three seizures this morning. REVIEW OF SYSTEMS: All systems were reviewed and found to be negative except for the pertinent positives mentioned above. PAST MEDICAL HISTORY: Seizures, nephrolithiasis, severe seafood allergy, and severe peanut allergy. PAST SURGICAL HISTORY: Adenoidectomy, bilateral axillary sweat gland removal, tonsillectomy, and section x2. PSYCHIATRIC HISTORY: Depression and anxiety. SOCIAL HISTORY: The patient denies tobacco use, alcohol use, or recreational drug use. FAMILY HISTORY: No history of seizures in immediate family members. ALLERGIES: PEANUT AND SHELLFISH. CURRENT MEDICATIONS: 1. Trazodone 100 mg at bedtime. 2. Fluoxetine 40 mg daily. 3. BuSpar 15 mg daily. 4. Cetirizine 20 mg daily as needed. 5. Montelukast 10 mg daily. 6. The patient reports that she is also on Keppra. Dose needs to be clarified. PHYSICAL EXAMINATION: GENERAL: On examination, Ms. Durán is awake and alert, not in acute distress. VITAL SIGNS: Blood pressure is 112/83, pulse 69, respiratory rate 18, and oxygen saturation 100% on room air. She is afebrile. EYES: No scleral icterus. No conjunctival pallor. ENT: Moist mucosal membranes. No oropharyngeal erythema or exudates. NECK: Supple, nontender, and trachea is midline. RESPIRATORY: Accessory muscles of breathing are not active. Chest wall movements are symmetric bilaterally. Lungs are clear to auscultation without wheeze, rhonchi, or crepitations. CARDIOVASCULAR: S1 and S2 are heard, regular. Peripheral pulses palpable. NEUROLOGIC: Cranial nerves 2 through 12 are intact. No focal motor or sensory deficits. Deep tendon reflexes 2+, plantars downgoing bilaterally. MUSCULOSKELETAL: Power is 5/5 in all 4 extremities. SKIN: Multiple tattoos. LYMPHATIC: No cervical lymphadenopathy. PSYCHIATRIC: Normal mood. Normal affect. The patient is oriented to person, place, and time. LABORATORY DATA: Ms. Durán labs and investigations were reviewed. Noncontrast CT scan of the brain did not show any acute intracranial process. She has normal white count, normocytic anemia with hemoglobin 11.8, and normal platelet count. Normal sodium, normal potassium, normal creatinine, and unremarkable LFTs. Serum test is negative. TSH is normal. Prolactin is normal at 26.45. Lactic acid level is elevated at 3.2. CK is normal. Urinalysis is negative for nitrite and leukocyte esterase. Urine toxicology screen is positive for benzodiazepines. ASSESSMENT AND PLAN: Ms. Durán is a pleasant 33-year-old lady, who was seen at [facility] on November 24, 2018. Her problem list includes: 1. Seizure. Ms. Durán reports recurrent seizures. She will be admitted to the hospital for further management. We will check EEG. We will consult Neurology Service for opinion and help with management. We will resume Keppra once dose is clarified. 2. Anxiety and depression. Resume home medications. Many thanks for allowing me to participate in your patient's care. Please feel free to contact me with any questions or concerns. LEVEL OF RISK: Moderate. LEVEL OF COMPLEXITY: Moderate. Job ID: [id number]
[2018-11-24 15:55] VITALS: BMI 44.3
[2018-11-24] MEDS: Lorazepam 2 MG/ML VIAL SLOW IVP PRN (20:06)
[2018-11-24] MEDS: levETIRAcetam 500 MG TAB PO SCH (20:06)
[2018-11-24] MEDS: Ibuprofen 200 MG TAB PO PRN (20:07)
[2018-11-24] MEDS: Dextrose 5 % And 0.9 % NaCl 1,000 ML IV SCH (20:09)
[2018-11-24] MEDS ORDERED: traZODone HCl 50 MG TAB PO SCH (21:00)
[2018-11-24] MEDS ORDERED: Montelukast Sodium 10 mg Tablet PO SCH (21:00)
[2018-11-25] MEDS: Lorazepam 2 MG/ML VIAL SLOW IVP PRN (04:00)
[2018-11-25] MEDS ORDERED: Dextrose 5 % And 0.9 % NaCl 500 ML IV SCH (04:30)
[2018-11-25 05:11] LABS: #Eosinphils 0.2 thou/uL (0.0-0.7); #Lymphocytes 1.3 thou/uL (1.20-3.40); #Monocytes 0.5 thou/uL (0.11-0.59); #Neutrophils 2.7 thou/uL (1.40-6.50); %Basophils 0.3 % (0.0-1.0); %Eosinophils 3.4 % (0.0-10.0); %Lymphocytes 27.6 % (21.0-51.0); %Monocytes 10.3 % (0.0-10.0); %Neutrophils 58.5 % (42.0-75.0); Hemoglobin 11.1 g/dL (12.0-16.0); Mean Corpuscular HGB CONC 35.4 g/dL (32.0-36.0); Mean Corpuscular Hemoglobin 31.3 pg (27.0-31.0); Mean Corpuscular Volume 88.2 fL (78.0-98.0); Mean Platelet Volume 7.7 fL (7.4-10.4); Platelet Count 176 thou/uL (130-400); RBC Distribution Width 11.3 % (11.5-14.5); Red Blood Cell (RBC) Count 3.57 mill/uL (4.20-5.40); White Blood Cell (WBC) Count 4.6 thou/uL (4.8-10.8)
[2018-11-25 05:46] LABS: Anion Gap 9 mmol/L (10-20); BUN (Urea Nitrogen) 5 mg/dL (7.0-18.7); Calc. Creatinine Clearance 228 mL/min (70-130); Carbon Dioxide 20 mmol/L (22-29); Chloride 112 mmol/L (98-107); Estimated GFR-MDRD Greater than 90; Glucose 145 mg/dL (70-105); Magnesium 1.6 mg/dL (1.6-2.6); Potassium 3.5 mmol/L (3.5-5.1); Sodium 137 mmol/L (136-145)
[2018-11-25] MEDS ORDERED: Magnesium 2 GM/50 ML 2 GM in Premix Bag 1 BAG IVPB SCH (07:30)
[2018-11-25] MEDS ORDERED: Loratadine 10 MG TAB PO SCH (09:00)
[2018-11-25] MEDS ORDERED: FLUoxetine HCl 20 MG CAP PO SCH (09:00)
[2018-11-25] MEDS ORDERED: busPIRone HCl 5 MG TAB PO SCH (09:00)
[2018-11-25] MEDS ORDERED: Enoxaparin Sodium 40 MG/0.4 ML SYRINGE SC SCH (09:00)
[2018-11-25] MEDS: Dextrose 5 % And 0.9 % NaCl 1,000 ML IV SCH (09:20)
[2018-11-25] MEDS: levETIRAcetam 500 MG TAB PO SCH (09:28)
[2018-11-25] MEDS: Ibuprofen 200 MG TAB PO PRN (12:08)
--- NOTE | 2018-11-25 15:37 | EEG ---
Referring Physician: More BERRIOS EEG # [id number] TEST TYPE: ROUTINE PORTABLE EEG REPORT: AN EEG USING THE INTERNATIONAL TEN-TWENTY SYSTEM OF ELECTRODE PLACEMENT WAS PERFORMED. The waking background is a medium amplitude 9 hertz alpha frequency. The patient remained awake throughout the study. Photic stimulation was unremarkable. The patient had two witnessed episodes of seizure-like behavior. Neither of these were associated with any epileptiform features. IMPRESSION: THIS IS A NORMAL AWAKE EEG WHICH CONFIRMS THE DIAGNOSIS OF PSEUDOSEIZURE Project Inspector: OCTAVIA Petroleum Engineer: EEG.MIRIAM TAVERAS
[2018-11-25] MEDS ORDERED: clonazePAM 0.5 MG TAB PO SCH ×2 (15:45→21:00)
[2018-11-25 15:54] VITALS: BP 101/57; TEMP 98.7
--- NOTE | 2018-11-26 11:09 | DIS ---
DATE OF ADMISSION: 11/24/2018 DATE OF DISCHARGE: 11/25/2018 DISCHARGE DISPOSITION: Home. FOLLOWUP: Follow up with primary care physician, Dr. Rivera, in 1 week. Follow up with Dr. Ndiaye in 2 weeks. ALLERGIES: THE PATIENT IS ALLERGIC TO GRASS, MILK, PEANUT, SELFISH. DISCHARGE MEDICATIONS: Clonazepam 0.5 mg b.i.d. per Neurology recommendation. All other home medications were left unchanged. The patient was seen and examined on the day of discharge. Denies any new complaints. BRIEF HOSPITAL COURSE: The patient is a 33-year-old female, who presented to the emergency room with multiple episodes of seizure. She has history of seizure disorder per family; however, she is currently not on any seizure medications. Please refer to the history and physical for further details. The patient was admitted to the hospital with a diagnosis of seizure. An EEG was done that was normal. The patient was evaluated by Neurology, Dr. Ndiaye. Dr. Ndiaye started clonazepam 0.5 mg b.i.d. for pseudoseizures. She has been cleared by Neurology for discharge. FINAL DIAGNOSES: 1. Pseudoseizures. 2. Anxiety. 3. Depression, mild, stable. 4. Morbid obesity with a body mass index of 44.3. 5. Chronic anemia. 6. Dehydration with lactic acidosis on admission improved with IV hydration. DIAGNOSTIC TESTS: CT scan of the brain was negative for acute findings. Plan of care was discussed with the family in detail, they stated understanding. Job ID: [id number]
== END 2018-11-25 19:50 | disposition home or self-care (01) | DRG 880 ==
LOC: ERS 10:58 → 2SE 12:05
PROVIDERS: ADMIT Internal Medicine; ATTEND Internal Medicine
DX: F44.5 Conversion disorder with seizures or convulsions (principal); F32.0 Major depressive disorder, single episode, mild; Z68.41 Body mass index [BMI] 40.0-44.9, adult; E87.2 Acidosis; F41.9 Anxiety disorder, unspecified; G47.00 Insomnia, unspecified; E66.01 Morbid (severe) obesity due to excess calories; D64.9 Anemia, unspecified; E86.0 Dehydration; G40.909 Epilepsy, unspecified, not intractable, without status epilepticus; Z91.010 Allergy to peanuts; Z91.013 Allergy to seafood; Z79.899 Other long term (current) drug therapy; Z87.442 Personal history of urinary calculi; Z91.011 Allergy to milk products
CPT/HCPCS: 36415; 70450; 80048; 80053; 80306; 80307; 81003; 82140; 83605; 83690; 83735; 84146; 84443; 84703; 85025; 93005; 95816; 95819; 96365; J1650; J1953; J2060; J3475

== ENCOUNTER 2019-01-22 11:48 | Emergency (ER) | payer OTHER ==
[2019-01-22 13:49] LABS: #Basophils 0.1 thou/uL (0.0-0.2); #Eosinphils 0.3 thou/uL (0.0-0.7); #Lymphocytes 1.5 thou/uL (1.20-3.40); #Monocytes 0.9 thou/uL (0.11-0.59); #Neutrophils 5.2 thou/uL (1.40-6.50); %Basophils 0.6 % (0.0-1.0); %Eosinophils 4.2 % (0.0-10.0); %Lymphocytes 19.5 % (21.0-51.0); %Monocytes 10.7 % (0.0-10.0); Hemoglobin 12.3 g/dL (12.0-16.0); Mean Corpuscular HGB CONC 34.4 g/dL (32.0-36.0); Mean Corpuscular Hemoglobin 30.7 pg (27.0-31.0); Mean Corpuscular Volume 89.2 fL (78.0-98.0); Mean Platelet Volume 8.6 fL (7.4-10.4); Platelet Count 207 thou/uL (130-400); White Blood Cell (WBC) Count 7.9 thou/uL (4.8-10.8)
[2019-01-22 13:59] LABS: BHCG - Serum Negative (NEGATIVE); Pregs Control Background? CLEAR/WHITE (CLR/WHITE); Pregs Control Bar Appear? YES (CONTROL BAR)
[2019-01-22] MEDS ORDERED: Acetaminophen 500 MG TAB ONE (14:01)
[2019-01-22 14:13] LABS: ALT (SGPT) 7 U/L (8-55); AST (SGOT) 14 U/L (5-34); Albumin 3.8 g/dL (3.5-5.0); Alkaline Phosphatase 55 U/L (40-110); Anion Gap 12 mmol/L (10-20); BUN (Urea Nitrogen) 9 mg/dL (7.0-18.7); Bilirubin, Total 0.4 mg/dL (0.2-1.2); Calc. Creatinine Clearance 0 mL/min (70-130); Calcium 8.9 mg/dL (7.8-10.44); Carbon Dioxide 21 mmol/L (22-29); Chloride 109 mmol/L (98-107); Estimated GFR-MDRD Greater than 90; Globulin 3.7 g/dL (2.4-3.5); Glucose 60 mg/dL (70-105); Protein, Total 7.5 g/dL (6.0-8.3); Sodium 138 mmol/L (136-145)
[2019-01-22] MEDS ORDERED: Ibuprofen 200 MG TAB ONE (14:42)
== END 2019-01-22 14:49 | disposition home or self-care (01) ==
LOC: ERS 11:48
DX: R56.9 Unspecified convulsions (principal); F32.9 Major depressive disorder, single episode, unspecified; F41.9 Anxiety disorder, unspecified; Z79.899 Other long term (current) drug therapy
CPT/HCPCS: 80053; 84146; 84703; 85025; 99284

== ENCOUNTER 2019-02-10 23:18 | Emergency (ER) | payer OTHER ==
[2019-02-11 01:01] LABS: #Basophils 0.1 thou/uL (0.0-0.2); #Eosinphils 0.7 thou/uL (0.0-0.7); #Lymphocytes 1.9 thou/uL (1.20-3.40); #Monocytes 0.8 thou/uL (0.11-0.59); #Neutrophils 5.5 thou/uL (1.40-6.50); %Basophils 0.7 % (0.0-1.0); %Eosinophils 7.6 % (0.0-10.0); %Lymphocytes 21.6 % (21.0-51.0); %Monocytes 9.1 % (0.0-10.0); %Neutrophils 61.1 % (42.0-75.0); Hemoglobin 11.9 g/dL (12.0-16.0); Mean Corpuscular HGB CONC 33.9 g/dL (32.0-36.0); Mean Corpuscular Hemoglobin 31.3 pg (27.0-31.0); Mean Corpuscular Volume 92.2 fL (78.0-98.0); Mean Platelet Volume 8.7 fL (7.4-10.4); Platelet Count 193 thou/uL (130-400); RBC Distribution Width 11.8 % (11.5-14.5); Red Blood Cell (RBC) Count 3.82 mill/uL (4.20-5.40); White Blood Cell (WBC) Count 8.9 thou/uL (4.8-10.8)
[2019-02-11 01:09] LABS: BHCG - Serum Negative (NEGATIVE); Pregs Control Background? CLEAR/WHITE (CLR/WHITE); Pregs Control Bar Appear? YES (CONTROL BAR)
[2019-02-11] MEDS ORDERED: Acetaminophen 500 MG TAB ONE (01:12)
[2019-02-11 01:25] LABS: ALT (SGPT) 11 U/L (8-55); AST (SGOT) 16 U/L (5-34); Albumin 3.5 g/dL (3.5-5.0); Alkaline Phosphatase 60 U/L (40-110); Anion Gap 13 mmol/L (10-20); BUN (Urea Nitrogen) 8 mg/dL (7.0-18.7); Bilirubin, Total 0.2 mg/dL (0.2-1.2); Calc. Creatinine Clearance 0 mL/min (70-130); Calcium 8.5 mg/dL (7.8-10.44); Carbon Dioxide 19 mmol/L (22-29); Chloride 109 mmol/L (98-107); Estimated GFR-MDRD Greater than 90; Globulin 3.5 g/dL (2.4-3.5); Glucose 84 mg/dL (70-105); Potassium 3.8 mmol/L (3.5-5.1); Sodium 137 mmol/L (136-145)
[2019-02-11] MEDS ORDERED: Cyclobenzaprine 10 MG TAB ONE (01:59)
--- NOTE | 2019-02-11 07:56 | RAD ---
1 view chest: CLINICAL HISTORY: Syncope COMPARISON: 11/24/2018 FINDINGS: There is no focal consolidation, effusion, or pneumothorax. Cardiac silhouette is normal in size. No acute osseous abnormality. IMPRESSION: No focal consolidation.
== END 2019-02-11 02:03 | disposition home or self-care (01) ==
LOC: ERS 23:18
DX: R55 Syncope and collapse (principal); F32.9 Major depressive disorder, single episode, unspecified; G47.00 Insomnia, unspecified; Z87.442 Personal history of urinary calculi; Z79.899 Other long term (current) drug therapy
CPT/HCPCS: 71045; 80053; 84703; 85025; 93005

== ENCOUNTER 2019-08-11 20:02 | Emergency (ER) | payer OTHER ==
[2019-08-11] MEDS ORDERED: Ondansetron PF 4 MG/2 ML Vial ONE (20:28)
[2019-08-11] MEDS ORDERED: Ondansetron ODT 4 MG TAB ONE (20:31)
[2019-08-12 15:44] LABS: SARS-CoV-2 MS2 Positive; SARS-CoV-2 N Gene Positive; SARS-CoV-2 S Gene Positive; SARS-CoV-2 orf1ab Positive
== END 2019-08-11 21:53 | disposition home or self-care (01) ==
LOC: ERS 20:02
DX: U07.1 COVID-19 (principal); F32.9 Major depressive disorder, single episode, unspecified; F41.9 Anxiety disorder, unspecified; Z87.442 Personal history of urinary calculi; Z79.899 Other long term (current) drug therapy
CPT/HCPCS: 87635; 99283; J2405; Q0162; U0003

== ENCOUNTER 2020-02-24 15:31 | Inpatient (IN) | payer OTHER ==
[2020-02-24 17:05] LABS: Mean Corpuscular HGB CONC 35.2 g/dL (32.0-36.0); Mean Corpuscular Hemoglobin 34.2 pg (27.0-31.0); Mean Corpuscular Volume 97.2 fL (78.0-98.0); Mean Platelet Volume 7.9 fL (7.4-10.4); Platelet Count 106 thou/uL (130-400); RBC Distribution Width 10.2 % (11.5-14.5); Red Blood Cell (RBC) Count 3.23 mill/uL (4.20-5.40); White Blood Cell (WBC) Count 6.3 thou/uL (4.8-10.8)
[2020-02-24 17:07] LABS: Bacteria/HPF 1+ HPF (None Seen); Bilirubin Negative (Negative); Blood, Urine Negative (Negative); Clarity Clear (Clear); Glucose, Urine (Dipstick) Normal (Negative); Ketone, Urine Negative (Negative); Leukocyte 500 Leu/uL (Negative); Nitrite Negative (Negative); Protein, Urine (Dipstick) Negative (Neg-Trace); RBC/HPF 0-3 HPF (0-3); Urobilinogen 6 mg/dL (Less than 2); pH, Urine 6.5 (5.0-9.0)
[2020-02-24 17:08] LABS: Pregnancy Test - Urine (BHCG) Negative (Negative); Pregu Control Background? CLEAR/WHITE (CLR/WHITE); Pregu Control Bar Appear? YES (CONTROL BAR)
[2020-02-24 17:15] LABS: Amphetamine Not Detected (NotDetected); Barbiturates Screen Not Detected (NotDetected); Benzodiazepine Screen Detected (NotDetected); Cocaine Metabolite Screen Not Detected (NotDetected); Medtox Control Line Valid? VALID (VALID); Medtox Reader # READER 4; Methadone Not Detected (NotDetected); Methamphetamine Not Detected (NotDetected); Opiate Screen Not Detected (NotDetected); Oxycodone Screen Not Detected (NotDetected); Phencyclidine (PCP) Not Detected (NotDetected); THC/Cannabinoid Screen Not Detected (NotDetected); Tricyclic Screen Not Detected (NotDetected)
[2020-02-24 17:21] LABS: Lymphocytes 28 % (21-51); MDiff Complete? YES; Monocytes 20 % (0-10); Neutrophil 52 % (42-75); Platelet Morphology Comment Appears Decreased; Polychromasia SLIGHT = 2-3 cells (100X) (0-2/hpf)
[2020-02-24 17:26] LABS: ALT (SGPT) 9 U/L (8-55); AST (SGOT) 17 U/L (5-34); Acetaminophen Less than 6.0 mcg/mL (10.0-30.0); Albumin 2.9 g/dL (3.5-5.0); Alcohol Less than 10 mg/dL (Less than 10); Alkaline Phosphatase 43 U/L (40-110); Anion Gap 12 mmol/L (10-20); BUN (Urea Nitrogen) 7 mg/dL (7.0-18.7); Bilirubin, Total 0.5 mg/dL (0.2-1.2); Calc. Creatinine Clearance 0 mL/min (70-130); Calcium 8.1 mg/dL (7.8-10.44); Carbon Dioxide 23 mmol/L (22-29); Chloride 110 mmol/L (98-107); Globulin 3.2 g/dL (2.4-3.5); Glucose 79 mg/dL (70-105); Protein, Total 6.1 g/dL (6.0-8.3); Salicylate Less than 8.0 mg/dL (15.0-30.0); Sodium 141 mmol/L (136-145)
--- NOTE | 2020-02-24 18:15 | PDOC.FPRHP ---
- History of Present Illness Chief Complaint: neurological changes History of Present Illness: 34 yo F w history of bipolar disorder and pseduoseizures who presents with mother for multiple neurological complaints. Her Depakote level was recently increased from 500mg TID to 500mg 4 times daily. Patient had an appt earlier today with Dr. Parra who was concerned that patient needed a Depakote level taken based off of how she was acting during the appt. Patient is also established with [facility]. Patient's mother notes patient has been "off" since 2300 on 02/23/20, saying that the patient cannot remain still, is "squirming continuously", and feels "achy" all over. Additionally in past 6 days the patient has not been able to use/work her smart phone, has been wobbling and dizzy when standing and walking around, and falling to right side. Per ED physician who contacted patient's psychiatrist (Dr. Parra), these are atypical of her known conversion disorder. She typically lives with her mother who reports at baseline patient is able to care for herself but has seen a significant decline in ability to perform self ADLs since she had her last seizure on July 02, 2019. Endorses visual and auditory hallucinations that tell her to kill herself. Patient does endorse SI and that she wants to hurt herself. Denies HI. PCP-Dr. Rivera at [facility] Psych- Dr. Parra & [facility] (Dr. Gilbert) Neurology- Dr. Ndiaye ED Course: Patient received 1g Rocephin, 1L NS bolus, Depakote level 116 - Allergies/Adverse Reactions Allergies Allergy/AdvReac Type Severity Reaction Status Date / Time grass pollen Allergy Verified 05/04/19 06:40 mold Allergy Verified 05/04/19 06:40 peanut Allergy Verified 05/04/19 06:40 shellfish derived Allergy Verified 05/04/19 06:40 dust Allergy Uncoded 05/04/19 06:40 trees Allergy Uncoded 05/04/19 06:40 - Home Medications Medication Instructions Recorded Confirmed Type FLUoxetine HCl [Prozac] 20 mg PO DAILY 05/17/17 02/24/20 History traZODone HCl [Trazodone HCl] 50 mg PO HS 05/17/17 02/24/20 History Montelukast Sodium 10 mg PO HS 08/09/17 02/24/20 History busPIRone HCl [Buspirone HCl] 15 mg PO TID 08/09/17 02/24/20 History ALPRAZolam [Alprazolam] 0.5 mg PO BID PRN 02/24/20 02/24/20 History ARIPiprazole [Abilify] 15 mg PO DAILY 02/24/20 02/24/20 History Benztropine [Cogentin] 1 mg PO HS 02/24/20 02/24/20 History Cholecalciferol (Vitamin D3) 2,000 unit PO DAILY 02/24/20 02/24/20 History [Vitamin D3] Divalproex Sodium [Depakote ER] 1,000 mg PO QPM 02/24/20 02/24/20 History Divalproex Sodium [Depakote ER] 500 mg PO QAM 02/24/20 02/24/20 History - History PMHx: Anxiety, Severe depression with suicidal ideation, pseudoseizures, hx anaphylactic reactions PSHx: C Section X2, tubal ligation, tonsillectomy, appendectomy, hidradenitis suppuritiva resection FHx: noncontributory Social: Denies X3 - Review of Systems General: reports: fatigue. denies: fever/chills, weight/appetite/sleep changes Eyes: denies: eye pain, vision changes ENT: denies: nasal congestion, rhinorrhea Respiratory: denies: cough, congestion, shortness of breath Cardiovascular: denies: chest pain, palpitation Gastrointestinal: denies: nausea, vomiting, diarrhea, constipation Genitourinary: denies: incontinence, dysuria, polyuria Skin: denies: rashes, lesions, jaundice Musculoskeletal: reports: pain (myalgias). denies: tenderness, stiffness Neurological: reports: weakness. denies: numbness, syncope, seizure Psychological: reports: anxiety, depression (Endorses SI, denies HI) - Vital signs BP: 93/51, Pulse: 104, Resp: 20, Temp: 97.9 (Oral), O2 sat: 96 on (Room Air), T eliana: 02/24/2020 15:34. BP: 110/72 (Manual BP), Pulse: 92 (Regular), O2 sat: 100 on (Room Air), Time: 02/24/2020 17:51, Wt: 100 kg - Physical Exam Constitutional: NAD, awake, alert and oriented HEENT: normocephalic and atraumatic, EOMI (horizontal nystagmus present bilaterally), conjunctiva clear, no scleral icterus, grossly normal vision, grossly normal hearing, MMM Neck: supple, FROM, trachea midline Chest: no-tender to palpation Heart: RRR, normal S1/S2, no murmurs/rubs/gallops Lungs: CTAB, no respiratory distress, good air movement, no rales/rhonchi, no wheezing Abdomen: soft, non-tender, bowel sounds present Musculoskeletal: normal structure, normal tone, other (strength 5/5 in all extremities) Neurological: no focal deficit, CN II-XII intact, normal sensation, DTRs 2+, other (horizontal nystagumus present) Skin: no rash/lesions, good turgor, no jaundice Heme/Lymphatic: no unusual bruising or bleeding, no purpura Psychiatric: good judgment and insight, intact recent and remote memory, other (depressed affect, SI, well groomed) FMR H&P: Results - Labs Result Diagrams: 02/24/20 16:47 02/24/20 16:47 Lab results: WBC 6.3 thou/uL (4.8-10.8) 02/24/20 16:47 Hgb 11.0 g/dL (12.0-16.0) L 02/24/20 16:47 Hct 31.4 % (36.0-47.0) L 02/24/20 16:47 MCV 97.2 fL (78.0-98.0) 02/24/20 16:47 Plt Count 106 thou/uL (130-400) L 02/24/20 16:47 Sodium 141 mmol/L (136-145) 02/24/20 16:47 Potassium 4.0 mmol/L (3.5-5.1) 02/24/20 16:47 Chloride 110 mmol/L (98-107) H 02/24/20 16:47 Carbon Dioxide 23 mmol/L (22-29) 02/24/20 16:47 BUN 7 mg/dL (7.0-18.7) 02/24/20 16:47 Creatinine 0.69 mg/dL (0.6-1.1) 02/24/20 16:47 Glucose 79 mg/dL (70-105) 02/24/20 16:47 Calcium 8.1 mg/dL (7.8-10.44) 02/24/20 16:47 Total Bilirubin 0.5 mg/dL (0.2-1.2) 02/24/20 16:47 AST 17 U/L (5-34) 02/24/20 16:47 ALT 9 U/L (8-55) 02/24/20 16:47 Alkaline Phosphatase 43 U/L (40-110) 02/24/20 16:47 Serum Total Protein 6.1 g/dL (6.0-8.3) 02/24/20 16:47 Albumin 2.9 g/dL (3.5-5.0) L 02/24/20 16:47 Urine Ketones Negative mg/dL (Negative) 02/24/20 16:07 Urine Blood Negative (Negative) 02/24/20 16:07 Urine Nitrite Negative (Negative) 02/24/20 16:07 Ur Leukocyte Esterase 500 Jonnathan/uL (Negative) A 02/24/20 16:07 Urine RBC 0-3 HPF (0-3) 02/24/20 16:07 Urine WBC 7-10 HPF (0-3) A 02/24/20 16:07 Ur Squamous Epith Cells 4-6 HPF (0-3) A 02/24/20 16:07 Urine Bacteria 1+ HPF (None Seen) A 02/24/20 16:07 - EKG Interpretation EKG: QTc 437, NSR - Radiology Interpretation CT scan - head Status: image reviewed by me, report reviewed by me Additional comment: No evidence of acute abnormality or bleed FMR H&P: A/P - Plan Acute Metabolic Encephalopathy 2/2 Depakote toxicity - CTH negative, EKG shows NSR with QTC 437, Depakote level 116 - Possibly due to recent increase in medication to 2000 mg QD from 1500 mg QD, mother helps with medications, unlikely to have been intentional overdose - Depakote monitoring Q4h, can consider spacing out/stopping with declining levels - EKG Q4H with lab draws, monitor QTc - Hold home depakote - Discussed with poison control who agreed with plan-symptomatic control and monitoring levels. Will call again if levels increase. Severe depression w/ suicidal ideation - hx of depression and SI - Suicidal precautions with sitter - Consult [facility] Pseudoseizures - Last seizure June-July 2019 per mother - continue to monitor, seizure precautions in place Anxiety - continue home medications GI ppx: none DVT ppx: none Code: Full PCP: Miguel, other specialists as in HPI Dispo: Admit inpatient LOS >48, plan to transfer care in AM 03/16 [facility] [place] PCP FMR H&P: Upper Level - Plan Date/Time: 02/24/201812 I, Nighat Biswas PGY-2, have evaluated this patient and agree with findings/plan as outlined by underwriting internship resident. Pertinent changes/additions are listed here. Patient is a 34 yo female who presents with her mother to ED with complaint of ataxia and abnormal movements that have been ongoing for about 6 days but has acutely worsened in the past 24-36 hours. Now having muscle aches all over, is dizzy when walking, cannot stop moving, and is generally uncomfortable. Mother also notes she is unable to perform complex tasks such as using her smart phone. Patient had a telehealth appointment earlier today with her psychiatrist Dr. Parra, who instructed patients mother to bring her to the ED for evaluation and to have her Depakote levels checked. Patient is supposed to be taking 1000 mg BID of Depakote, this was recently increased about 1 week ago. Prior to that the patient was taking 500 mg qAM and 1000 mg qHS of Depakote. Patients mother provides the majority of this history with some contribution by the patient. Per mother patient at baseline was previously able to perform ADLs independently but since June 2019 has seen significant decline in ability to perform ADLs with her mother having to take on more of this responsibility. Additionally in the past week the patient endorses suicidal ideations along with auditory & visual hallucinations that are instructing her to kill herself. She denies any HI. Patient follows with Dr. Gilbert at [facility], Dr. Ndiaye for Neurology, and her PCP is Dr. Rivera. ROS: Denies fever, chills, headache, cough, congestion, SOB, chest pain, palpitations, abdominal pain, nausea, vomiting, diarrhea, constipation. Endorses myalgias, dizziness, fatigue, anxiety, depression. PE: NC/AT. EOMI. Slight horizontal nystagmus present bilaterally. CN II-XII intact. No focal deficits. No respiratory distress, CTAB. RRR, no murmur. Abdomen soft, nontender, BS+. Full ROM. Normal motor strength and sensation. No edema. Oriented to person and place. A/P: #Acute Metabolic Encephalopathy 2/2 accidental Valproic Acid Overdose -Depakote level 116, will plan to repeat level q4h until level decreases -will hold Depakote & Alprazolam for now given AMS -CMP with normal LFTs, will repeat in AM -ammonia level 22 (normal) -EKG with QRS/QTc wnl, will repeat with next Depakote level -call Poison control for further recommendations #Severe Depression with current suicidal ideation -consult [facility] once medically cleared -is already established with Dr. Gilbert at [facility] outpatient but needs evaluation for inpatient facility given current SI -continue home Fluoxetine, Aripiprazole, Buspirone #Anxiety -as above #Pseudoseizures -hold Depakote given current OD -continue Benztropine -last seizure in June 2019 per mother #Conversion Disorder -follows with Dr. Parra, psychiatry for this Dispo: Plan to consult [facility] once medically cleared. Will transfer care to [facility] in the morning due to patients PCP being [facility] physician (Dr. Rivera). Addendum - Attending - Attending Attestation Date/Time: 02/24/202115 I personally evaluated the patient and discussed the management with Dr. Castillo/True I agree with the History, Examination, Assessment and Plan documented above with any addition or exceptions noted below.
[2020-02-24] MEDS ORDERED: cefTRIAXone\\ROCEPHIN 1 GM VIAL ONE (18:49)
--- NOTE | 2020-02-24 18:53 | CT ---
Head CT without contrast 02/24/2020: COMPARISON: 09/26/2019 HISTORY: Memory loss, ataxia, tremors TECHNIQUE: Axial CT imaging at 5 mm intervals from vertex through skull base without contrast FINDINGS: The imaged paranasal sinuses and mastoid air cells are well-aerated. No displaced calvarial fracture. Detailed assessment is slightly limited by motion. No intracranial hemorrhage, midline shift, or mass effect. IMPRESSION: No acute findings.
[2020-02-24] MEDS ORDERED: Acetaminophen 325 MG TAB PO PRN (19:17)
[2020-02-24] MEDS ORDERED: Acetaminophen 650 MG Suppository PR PRN (19:17)
[2020-02-24 20:29] VITALS: BMI 38.0
[2020-02-24] MEDS: busPIRone HCl 10 MG TAB PO SCH (21:14)
[2020-02-24] MEDS: Montelukast Sodium 10 mg Tablet PO SCH (21:14)
[2020-02-24] MEDS: Benztropine 1 MG TAB PO SCH (21:14)
[2020-02-24] MEDS: traZODone HCl 50 MG TAB PO SCH (21:14)
[2020-02-25 06:16] LABS: SARS-CoV-2 MS2 Positive; SARS-CoV-2 N Gene Negative; SARS-CoV-2 S Gene Negative; SARS-CoV-2 by NAA Not Detected (NotDetected); SARS-CoV-2 orf1ab Negative
[2020-02-25 06:36] LABS: ALT (SGPT) 9 U/L (8-55); AST (SGOT) 16 U/L (5-34); Albumin 2.6 g/dL (3.5-5.0); Alkaline Phosphatase 37 U/L (40-110); Anion Gap 9 mmol/L (10-20); BUN (Urea Nitrogen) 8 mg/dL (7.0-18.7); Bilirubin, Total 0.4 mg/dL (0.2-1.2); Calc. Creatinine Clearance 207 mL/min (70-130); Calcium 7.8 mg/dL (7.8-10.44); Carbon Dioxide 23 mmol/L (22-29); Chloride 113 mmol/L (98-107); Glucose 80 mg/dL (70-105); Potassium 3.7 mmol/L (3.5-5.1); Protein, Total 5.6 g/dL (6.0-8.3); Sodium 141 mmol/L (136-145)
--- NOTE | 2020-02-25 07:31 | PDOC.BPN ---
- Brief Progress Note Patient is seen by Dr. Rivera who [facility] admits for. Talked with Dr. Wilson this morning for transfer of care over to their team. Please contact the resident team for an official checkout. Thanks!
[2020-02-25] MEDS ORDERED: busPIRone HCl 10 MG TAB PO SCH (09:00)
[2020-02-25] MEDS: FLUoxetine HCl 20 MG CAP PO SCH (09:10)
[2020-02-25] MEDS: busPIRone HCl 10 MG TAB PO SCH ×3 (09:10→21:01)
[2020-02-25] MEDS: Cholecalciferol 1,000 UNITS (25 MCG) TAB PO SCH (09:10)
[2020-02-25] MEDS: Aripiprazole 15 MG TAB PO SCH (09:11)
--- NOTE | 2020-02-25 14:44 | PDOC.HOSPP ---
- Subjective Encounter Date: 02/25/20 Encounter Time: 10:00 Subjective: Patient up in bed states she feels like a " worm". - Objective Vital Signs & Weight: Vital Signs (12 hours) Temp Pulse Resp BP Pulse Ox 02/25/20 12:22 98.3 F 74 18 107/55 L 100 02/25/20 08:00 95 02/25/20 07:11 98.3 F 85 18 108/55 L 95 02/25/20 04:10 97.2 F L 92 18 103/71 98 Weight Weight 222 lb Result Diagrams: 02/24/20 16:47 02/25/20 05:35 Hospitalist ROS - Review of Systems Cardiovascular: denies: chest pain, palpitations, orthopnea, paroxysmal noc. dyspnea, edema, light headedness, other Gastrointestinal: denies: nausea, vomiting, abdominal pain, diarrhea, constipation, melena, hematochezia, other Genitourinary: denies: dysuria, frequency, incontinence, hematuria, retention, other - Medication Medications: Active Medications Generic Name Dose Route Start Last Admin Trade Name Arq PRN Reason Stop Dose Admin Aripiprazole 15 mg 02/25/20 09:00 02/25/20 09:11 Aripiprazole 15 Mg Tab PO 15 mg DAILY CONNOR Administration Benztropine Mesylate 1 mg 02/24/20 21:00 02/24/20 21:14 Benztropine 1 Mg Tab PO 1 mg HS CONNOR Administration Buspirone HCl 15 mg 02/24/20 21:00 02/25/20 09:10 Buspirone Hcl 10 Mg Tab PO 15 mg TID CONNOR Administration Cholecalciferol 2,000 units 02/25/20 09:00 02/25/20 09:10 Cholecalciferol 1,000 Units (25 Mcg) Tab PO 2,000 units DAILY CONNOR Administration Fluoxetine HCl 20 mg 02/25/20 09:00 02/25/20 09:10 Fluoxetine Hcl 20 Mg Cap PO 20 mg DAILY CONNOR Administration Montelukast Sodium 10 mg 02/24/20 21:00 02/24/20 21:14 Montelukast Sodium 10 Mg Tablet PO 10 mg HS CONNOR Administration Trazodone HCl 50 mg 02/24/20 21:00 02/24/20 21:14 Trazodone Hcl 50 Mg Tab PO 50 mg HS CONNOR Administration - Exam Neck: negative: supple, symmetric, no JVD, no thyromegaly, no lymphadenopathy, no carotid bruit, JVD Heart: negative: RRR, no murmur, no gallops, no rubs, normal peripheral pulses, irregular, diminshed peripheral pulses, murmur present, II/IV, III/IV Respiratory: negative: CTAB, no wheezes, no rales, no ronchi, normal chest expansion, no tachypnea, normal percussion, rales, rhonchi, tachypneic, wheezes Gastrointestinal: negative: soft, non-tender, non-distended, normal bowel sounds, no palpable masses, no hepatomegaly, no splenomegaly, no bruit, no guarding, no rigidity, tender to palpation, distended, diminished bowl sounds, voluntary guarding Hosp A/P (1) Drug toxicity Code(s): R89.2 - ABN LEV DRUG/MEDS/BIOL SUBST IN SPECIMENS FROM OTH ORG/TISS Status: Acute (2) Suicidal ideation Code(s): R45.851 - SUICIDAL IDEATIONS Status: Acute (3) Anemia Code(s): D64.9 - ANEMIA, UNSPECIFIED Status: Chronic Qualifiers: Anemia type: unspecified type Qualified Code(s): D64.9 - Anemia, unspecified (4) Thrombocytopenia Code(s): D69.6 - THROMBOCYTOPENIA, UNSPECIFIED Status: Acute - Plan Patient continues to be suicidal. She states that she has a plan she is going to wait until tonight call her mom then block her mom and then take a knife and kill herself. Patient has a sitter at bedside. We will hold off on the Depakote for now. We will also get physical therapy to evaluate the patient. Her Depakote level continues to improve. She feels that she has some tremors this is most likely secondary to elevated Depakote level. Awake and oriented x3
[2020-02-25] MEDS: Montelukast Sodium 10 mg Tablet PO SCH (21:01)
[2020-02-25] MEDS: traZODone HCl 50 MG TAB PO SCH (21:02)
[2020-02-25] MEDS: Benztropine 1 MG TAB PO SCH (21:02)
[2020-02-25] MEDS: Acetaminophen 325 MG TAB PO PRN (21:05)
[2020-02-26] MEDS: Cholecalciferol 1,000 UNITS (25 MCG) TAB PO SCH (08:47)
[2020-02-26] MEDS: busPIRone HCl 10 MG TAB PO SCH ×3 (08:48→20:31)
[2020-02-26] MEDS: FLUoxetine HCl 20 MG CAP PO SCH (08:49)
[2020-02-26] MEDS: Acetaminophen 325 MG TAB PO PRN ×2 (08:49→20:30)
[2020-02-26] MEDS: Aripiprazole 15 MG TAB PO SCH (08:49)
[2020-02-26] MEDS: ALPRAZolam 0.5 MG TAB PO PRN ×2 (08:50→20:30)
[2020-02-26 09:06] LABS: Hemoglobin 11.5 g/dL (12.0-16.0); Mean Corpuscular HGB CONC 34.9 g/dL (32.0-36.0); Mean Corpuscular Volume 97.4 fL (78.0-98.0); RBC Distribution Width 10.3 % (11.5-14.5); Red Blood Cell (RBC) Count 3.37 mill/uL (4.20-5.40)
[2020-02-26 09:11] LABS: ALT (SGPT) 8 U/L (8-55); AST (SGOT) 14 U/L (5-34); Albumin 2.9 g/dL (3.5-5.0); Alkaline Phosphatase 43 U/L (40-110); Anion Gap 10 mmol/L (10-20); BUN (Urea Nitrogen) 6 mg/dL (7.0-18.7); Bilirubin, Total 0.5 mg/dL (0.2-1.2); Calc. Creatinine Clearance 195 mL/min (70-130); Calcium 8.2 mg/dL (7.8-10.44); Carbon Dioxide 21 mmol/L (22-29); Chloride 112 mmol/L (98-107); Globulin 3.3 g/dL (2.4-3.5); Glucose 83 mg/dL (70-105); Magnesium 1.8 mg/dL (1.6-2.6); Potassium 3.8 mmol/L (3.5-5.1); Protein, Total 6.2 g/dL (6.0-8.3); Sodium 139 mmol/L (136-145)
[2020-02-26 09:34] LABS: Mean Platelet Volume 7.8 fL (7.4-10.4); Platelet Count 101 thou/uL (130-400)
[2020-02-26 10:57] LABS: Eosinophils 1 % (0-10); Lymphocytes 35 % (21-51); MDiff Complete? YES; Monocytes 10 % (0-10); Neutrophil 54 % (42-75); Platelet Morphology Comment Appears Decreased; RBC Morphology Normal
--- NOTE | 2020-02-26 18:16 | PDOC.HOSPP ---
- Subjective Encounter Date: 02/26/20 Encounter Time: 10:00 Subjective: Patient up in bed no complaints. - Objective Vital Signs & Weight: Vital Signs (12 hours) Temp Pulse Resp BP Pulse Ox 02/26/20 07:40 96.9 F L 80 18 113/74 96 Weight Weight 222 lb I&O: 02/25/20 02/26/20 02/27/20 06:59 06:59 06:59 Intake Total 1410 720 Balance 1410 720 Result Diagrams: 02/26/20 08:26 02/26/20 08:26 Hospitalist ROS - Review of Systems Cardiovascular: denies: chest pain, palpitations, orthopnea, paroxysmal noc. dyspnea, edema, light headedness, other Gastrointestinal: denies: nausea, vomiting, abdominal pain, diarrhea, con stipation, melena, hematochezia, other Genitourinary: denies: dysuria, frequency, incontinence, hematuria, retention, other - Medication Medications: Active Medications Generic Name Dose Route Start Last Admin Trade Name Freq PRN Reason Stop Dose Admin Acetaminophen 650 mg 02/25/20 15:09 02/26/20 08:49 Acetaminophen 325 Mg Tab PO 650 mg Q8H PRN Administration Headache Alprazolam 0.5 mg 02/25/20 13:09 02/26/20 08:50 Alprazolam 0.5 Mg Tab PO 0.5 mg BID PRN Administration Anxiety Aripiprazole 15 mg 02/25/20 09:00 02/26/20 08:49 Aripiprazole 15 Mg Tab PO 15 mg DAILY CONNOR Administration Benztropine Mesylate 1 mg 02/24/20 21:00 02/25/20 21:02 Benztropine 1 Mg Tab PO 1 mg HS CONNOR Administration Buspirone HCl 15 mg 02/24/20 21:00 02/26/20 15:25 Buspirone Hcl 10 Mg Tab PO 15 mg TID CONNOR Administration Cholecalciferol 2,000 units 02/25/20 09:00 02/26/20 08:47 Cholecalciferol 1,000 Units (25 Mcg) Tab PO 2,000 units DAILY CONNOR Administration Fluoxetine HCl 20 mg 02/25/20 09:00 02/26/20 08:49 Fluoxetine Hcl 20 Mg Cap PO 20 mg DAILY CONNOR Administration Montelukast Sodium 10 mg 02/24/20 21:00 02/25/20 21:01 Montelukast Sodium 10 Mg Tablet PO 10 mg HS CONNOR Administration Trazodone HCl 50 mg 02/24/20 21:00 02/25/20 21:02 Trazodone Hcl 50 Mg Tab PO 50 mg HS CONNOR Administration - Exam Neck: negative: supple, symmetric, no JVD, no thyromegaly, no lymphadenopathy, no carotid bruit, JVD Heart: negative: RRR, no murmur, no gallops, no rubs, normal peripheral pulses, irregular, diminshed peripheral pulses, murmur present, II/IV, III/IV Respiratory: negative: CTAB, no wheezes, no rales, no ronchi, normal chest expansion, no tachypnea, normal percussion, rales, rhonchi, tachypneic, wheezes Hosp A/P (1) Drug toxicity Code(s): R89.2 - ABN LEV DRUG/MEDS/BIOL SUBST IN SPECIMENS FROM OTH ORG/TISS Status: Acute (2) Suicidal ideation Code(s): R45.851 - SUICIDAL IDEATIONS Status: Acute (3) Anemia Code(s): D64.9 - ANEMIA, UNSPECIFIED Status: Chronic Qualifiers: Anemia type: unspecified type Qualified Code(s): D64.9 - Anemia, unspecified (4) Thrombocytopenia Code(s): D69.6 - THROMBOCYTOPENIA, UNSPECIFIED Status: Acute - Plan Patient continues to be suicidal. She states that she has a plan she is going to wait until tonight call her mom then block her mom and then take a knife and kill herself. Patient has a sitter at bedside. We will hold off on the Depakote for now. We will also get physical therapy to evaluate the patient. Her Depakote level continues to improve. She feels that she has some tremors this is most likely secondary to elevated Depakote level. Awake and oriented x3 02/25 spoke with patient's mother who states that patient was taking Depakote 500 mg in the morning, 500 mg in the afternoon and 1000 mg at night this was recently increased about 2 weeks ago. I also spoke with [facility] sales and service representative stating that patient has suicidal ideations. I had [facility] talk with the patient's mother. Her Depakote level has improved I will start her on Depakote 500 mg 3 times daily.
[2020-02-26] MEDS: Montelukast Sodium 10 mg Tablet PO SCH (20:30)
[2020-02-26] MEDS: traZODone HCl 50 MG TAB PO SCH (20:30)
[2020-02-26] MEDS: Divalproex Sodium DR 500 MG TAB PO SCH (20:31)
[2020-02-26] MEDS: Benztropine 1 MG TAB PO SCH (20:31)
[2020-02-27] MEDS: FLUoxetine HCl 20 MG CAP PO SCH (09:20)
[2020-02-27] MEDS: Divalproex Sodium DR 500 MG TAB PO SCH ×3 (09:21→21:06)
[2020-02-27] MEDS: busPIRone HCl 10 MG TAB PO SCH ×3 (09:22→21:07)
[2020-02-27] MEDS: Aripiprazole 15 MG TAB PO SCH (09:23)
[2020-02-27] MEDS: Cholecalciferol 1,000 UNITS (25 MCG) TAB PO SCH (09:23)
[2020-02-27] MEDS: Acetaminophen 325 MG TAB PO PRN (17:48)
[2020-02-27] MEDS: ALPRAZolam 0.5 MG TAB PO PRN (17:50)
--- NOTE | 2020-02-27 20:39 | PDOC.DS.DS ---
Provider - Provider Date of Admission: 02/24/20 18:06 Date of Discharge: 02/27/20 Admitting Provider: Nick Church Primary Care Physician: NO PCP PROVIDER Course - Hospital Course Hospital Course: Patient is a very pleasant 34-year-old female who initially presented to the hospital with change in mental status. Patient has a history of bipolar disorder and per patient's mother her Depakote level was titrated to 1000 mg nightly. She was taking 500 mg in the morning in the afternoon and then 1000 mg at night. Patient's Depakote level was 116. At this time her medication was stopped her level trended downwards and then she was put back on the original dose of 500 mg 3 times daily. Also expressed some suicidal ideation at this time mental health was called and patient will be transferred to inpatient psychiatric facility. Has been notified about this. Resuscitation Status: 02/24/20 19:17 Resuscitation Status Routine Co-Sign Provider: Resuscitation Status: FULL: Full Resuscitation - Labs Lab Results: 02/26/20 08:26 02/26/20 08:26 Abnormal Lab Results - Last 48 hrs 02/26/20 08:26: Valproic Acid 35.0 L 02/26/20 08:26: Chloride 112 H, Carbon Dioxide 21 L, BUN 6 L, Albumin 2.9 L, Albumin/Globulin Ratio 0.9 L 02/26/20 08:26: RBC 3.37 L, Hgb 11.5 L, Hct 32.9 L, MCH 34.0 H, RDW 10.3 L, Plt Count 101 L, Plt Morphology Comment Appears Decreased L 02/27/20 08:21: Valproic Acid Less than 12.5 L Microbiology - Entire Visit 02/24/20 16:07 Urine voided Urine Culture - Final - Physical Exam Vitals: Vital Signs (12 hours) Temp Pulse Resp BP BP Pulse Ox 02/27/20 19:20 98.8 F 91 18 111/66 99 02/27/20 15:11 98.4 F 90 18 120/72 100 02/27/20 11:16 98.5 F 92 18 118/70 100 Weight Weight 222 lb Physical Exam: The patient was seen and examined on the day of discharge. Problem - Problem (1) Drug toxicity Code(s): R89.2 - ABN LEV DRUG/MEDS/BIOL SUBST IN SPECIMENS FROM OTH ORG/TISS Status: Acute (2) Suicidal ideation Code(s): R45.851 - SUICIDAL IDEATIONS Status: Acute (3) Anemia Code(s): D64.9 - ANEMIA, UNSPECIFIED Status: Chronic Qualifiers: Anemia type: unspecified type Qualified Code(s): D64.9 - Anemia, unspecified (4) Thrombocytopenia Code(s): D69.6 - THROMBOCYTOPENIA, UNSPECIFIED Status: Acute Plan - Discharge Medications Home Medications: Medication Instructions Recorded Confirmed Type FLUoxetine HCl [Prozac] 20 mg PO DAILY 05/17/17 02/26/20 History traZODone HCl [Trazodone HCl] 50 mg PO HS 05/17/17 02/26/20 History Montelukast Sodium 10 mg PO HS 08/09/17 02/26/20 History busPIRone HCl [Buspirone HCl] 15 mg PO TID 08/09/17 02/26/20 History ALPRAZolam [Alprazolam] 0.5 mg PO BID PRN 02/24/20 02/26/20 History ARIPiprazole [Abilify] 15 mg PO DAILY 02/24/20 02/26/20 History Benztropine [Cogentin] 1 mg PO HS 02/24/20 02/26/20 History Cholecalciferol (Vitamin D3) 2,000 unit PO DAILY 02/24/20 02/26/20 History [Vitamin D3] Divalproex Sodium [Depakote ER] 500 mg PO TID #0 02/27/20 02/26/20 Rx Allergies: grass pollen Allergy (Verified 05/04/19 06:40) mold Allergy (Verified 05/04/19 06:40) peanut Allergy (Verified 05/04/19 06:40) PER ER REPORT shellfish derived Allergy (Verified 05/04/19 06:40) PER ER REPORT dust Allergy (Uncoded 05/04/19 06:40) trees Allergy (Uncoded 05/04/19 06:40) - Discharge Instructions Discharge Instructions:: pt's depakote was changed back to 500mg three times a day instead of 500mg in am, 500mg in afternoon and 1000mg at night Activity:: Activity as Tolerated Nourishment:: Regular Diet - Follow up Plan Referrals: PROVIDER,NO PCP [Primary Care Provider] - Disposition: HOME Quality - Care Measures CORE MEASURES:: N/A
[2020-02-27] MEDS: Montelukast Sodium 10 mg Tablet PO SCH (21:06)
[2020-02-27] MEDS: Benztropine 1 MG TAB PO SCH (21:07)
[2020-02-27] MEDS: traZODone HCl 50 MG TAB PO SCH (21:10)
[2020-02-27 23:30] VITALS: BP 120/72; TEMP 98.2
--- NOTE | 2020-02-28 10:20 | EKG ---
Test Reason : MED CLEARANCE Blood Pressure : / mmHG Vent. Rate : 095 BPM Atrial Rate : 095 BPM P-R Int : 142 ms QRS Dur : 094 ms QT Int : 348 ms P-R-T Axes : 029 055 021 degrees QTc Int : 437 ms Normal sinus rhythm Cannot rule out Anterior infarct , age undetermined Abnormal ECG Confirmed by WILSON RODGERS ([id number]), continuity editor KARLO LEON ([id number]) on 02/28/2020 10:19:45 AM Referred By: Confirmed By:WILSON Leary
== END 2020-02-27 23:20 | DRG 917 ==
LOC: ERS 15:31 → SJJU 18:06
PROVIDERS: ADMIT Family Medicine; ATTEND Internal Medicine
DX: T42.6X1A Poisoning by other antiepileptic and sedative-hypnotic drugs, accidental (unintentional), initial encounter (principal); G93.41 Metabolic encephalopathy; N39.0 Urinary tract infection, site not specified; R45.851 Suicidal ideations; D69.6 Thrombocytopenia, unspecified; F41.9 Anxiety disorder, unspecified; F31.9 Bipolar disorder, unspecified; F44.5 Conversion disorder with seizures or convulsions; D64.9 Anemia, unspecified; Z20.822 Contact with and (suspected) exposure to COVID-19; Y92.9 Unspecified place or not applicable; Z98.51 Tubal ligation status; Z90.89 Acquired absence of other organs; Z91.010 Allergy to peanuts; Z91.011 Allergy to milk products; Z91.013 Allergy to seafood; Z79.899 Other long term (current) drug therapy; Z90.49 Acquired absence of other specified parts of digestive tract
CPT/HCPCS: 36415; 70450; 80053; 80164; 80306; 80307; 81003; 81015; 81025; 82140; 83735; 84443; 85025; 87086; 87635; 93005; J0696; U0003; U0005

== ENCOUNTER 2020-05-20 22:05 | Emergency (ER) | payer OTHER ==
[2020-05-20] MEDS ORDERED: Haloperidol Lactate 5 MG/ML VIAL ONE (22:15)
== END 2020-05-20 23:29 | disposition home or self-care (01) ==
LOC: ERS 22:05
DX: T78.40XA Allergy, unspecified, initial encounter (principal); Z87.442 Personal history of urinary calculi; R06.00 Dyspnea, unspecified
CPT/HCPCS: 93005; J1630

== ENCOUNTER 2022-02-05 23:20 | Emergency (ER) | payer OTHER ==
[2022-02-06 00:11] LABS: #Lymphocytes 0.9 thou/uL (1.20-3.40); #Monocytes 0.6 thou/uL (0.11-0.59); %Basophils 0.2 % (0.0-1.0); %Eosinophils 0.3 % (0.0-10.0); %Lymphocytes 12.3 % (21.0-51.0); %Monocytes 7.3 % (0.0-10.0); %Neutrophils 79.9 % (42.0-75.0); Hemoglobin 13.4 g/dL (12.0-16.0); Mean Corpuscular HGB CONC 34.7 g/dL (32.0-36.0); Mean Corpuscular Hemoglobin 30.3 pg (27.0-31.0); Mean Corpuscular Volume 87.2 fl (78.0-98.0); Mean Platelet Volume 7.8 fL (7.4-10.4); Platelet Count 261 10x3/uL (130-400); RBC Distribution Width 12.5 % (11.5-14.5); Red Blood Cell (RBC) Count 4.43 mill/uL (4.20-5.40); White Blood Cell (WBC) Count 7.5 10x3/uL (4.8-10.8)
[2022-02-06 00:33] LABS: ALT (SGPT) 7 U/L (8-55); AST (SGOT) 16 U/L (5-34); Albumin 4.3 g/dL (3.5-5.0); Alkaline Phosphatase 66 U/L (40-110); Anion Gap 17 mmol/L (10-20); BUN (Urea Nitrogen) 6 mg/dL (7.0-18.7); Bilirubin, Total 0.9 mg/dL (0.2-1.2); Calc. Creatinine Clearance 0 mL/min (70-130); Calcium 9.2 mg/dL (7.8-10.44); Carbon Dioxide 15 mmol/L (22-29); Chloride 110 mmol/L (98-107); Estimated GFR 118; Globulin 3.3 g/dL (2.4-3.5); Glucose 94 mg/dL (70-105); Potassium 3.5 mmol/L (3.5-5.1); Protein, Total 7.6 g/dL (6.0-8.3); Sodium 138 mmol/L (136-145)
== END 2022-02-06 01:05 | disposition left against medical advice (07) ==
LOC: ERS 23:20
DX: Z53.21 Procedure and treatment not carried out due to patient leaving prior to being seen by health care provider (principal)
CPT/HCPCS: 36415; 71045; 80053; 84484; 85025; 93005

== ENCOUNTER 2022-04-17 15:30 | Emergency (ER) | payer OTHER ==
[2022-04-17] MEDS ORDERED: Famotidine/PF 20 mg/2ml Vial ONE (15:57)
== END 2022-04-17 17:45 | disposition home or self-care (01) ==
LOC: ERS 15:30
DX: T78.1XXA Other adverse food reactions, not elsewhere classified, initial encounter (principal); R06.02 Shortness of breath
CPT/HCPCS: 99284; S0028

== ENCOUNTER 2022-11-01 20:57 | Emergency (ER) | payer OTHER ==
[2022-11-01] MEDS ORDERED: Ketorolac Tromethamine 30 MG/ML VIAL ONE (21:55)
[2022-11-01] MEDS ORDERED: Acetaminophen 500 MG TAB ONE (21:55)
[2022-11-01] MEDS ORDERED: Ondansetron ODT 4 MG TAB ONE (21:55)
[2022-11-01 22:15] LABS: #Monocytes 0.6 thou/uL (0.11-0.59); #Neutrophils 6.6 thou/uL (1.40-6.50); %Basophils 0.2 % (0.0-1.0); %Eosinophils 0.4 % (0.0-10.0); %Lymphocytes 20.7 % (21.0-51.0); %Monocytes 6.3 % (0.0-10.0); %Neutrophils 72.2 % (42.0-75.0); Hematocrit 32.8 % (36.0-47.0); Hemoglobin 11.2 g/dL (12.0-16.0); Mean Corpuscular HGB CONC 34.1 g/dL (32.0-36.0); Mean Corpuscular Hemoglobin 29.1 pg (27.0-31.0); Mean Corpuscular Volume 85.2 fl (78.0-98.0); Mean Platelet Volume 10.5 fL (7.4-10.4); Platelet Count 252 10x3/uL (130-400); RBC Distribution Width 13.2 % (11.5-14.5); Red Blood Cell (RBC) Count 3.85 mill/uL (4.20-5.40); White Blood Cell (WBC) Count 9.2 10x3/uL (4.8-10.8)
[2022-11-01 22:27] LABS: BHCG - Serum Negative (NEGATIVE); Pregs Control Bar Appear? YES (CONTROL BAR)
[2022-11-01 22:38] LABS: ALT (SGPT) 7 U/L (8-55); AST (SGOT) 14 U/L (5-34); Albumin 3.9 g/dL (3.5-5.0); Alkaline Phosphatase 67 U/L (40-110); Anion Gap 13 mmol/L (10-20); BUN (Urea Nitrogen) 8 mg/dL (7.0-18.7); Bilirubin, Total 0.5 mg/dL (0.2-1.2); Calc. Creatinine Clearance 0 mL/min (70-130); Carbon Dioxide 20 mmol/L (22-29); Chloride 107 mmol/L (98-107); Estimated GFR 116; Globulin 3.6 g/dL (2.4-3.5); Glucose 84 mg/dL (70-105); Potassium 3.9 mmol/L (3.5-5.1); Protein, Total 7.5 g/dL (6.0-8.3); Sodium 136 mmol/L (136-145)
[2022-11-01 22:43] LABS: Acetaminophen Less than 10 mcg/mL (10.0-30.0); Alcohol Less than 10.0 mg/dL (Less than 10); Salicylate Less than 8.0 mg/dL (15.0-30.0)
[2022-11-01 22:44] LABS: Pregs Control Background? CLEAR/WHITE (CLR/WHITE)
== END 2022-11-01 22:55 | disposition home or self-care (01) ==
LOC: ERS 20:57
DX: R07.9 Chest pain, unspecified (principal)
CPT/HCPCS: 36415; 71045; 80053; 80307; 84703; 85025; 93005; 96372; J1885; Q0162

== ENCOUNTER 2023-02-08 19:12 | Emergency (ER) | payer BC, OTHER ==
[2023-02-08] MEDS ORDERED: Fluorescein Opthalmic Strip ONE (19:32)
[2023-02-08] MEDS ORDERED: Proparacaine 0.5% Opth 15 ML BOT ONE (19:33)
== END 2023-02-08 20:26 | disposition home or self-care (01) ==
LOC: ERS 19:12
DX: H10.13 Acute atopic conjunctivitis, bilateral (principal)
CPT/HCPCS: 99283

== ENCOUNTER 2023-04-18 14:43 | Emergency (ER) | payer OTHER, BC ==
[2023-04-18] MEDS ORDERED: diphenhydrAMINE 50 MG/ML VIAL ONE (15:28)
[2023-04-18] MEDS ORDERED: Metoclopramide HCl 10 MG (2 mL) VIAL ONE (15:29)
[2023-04-18 16:06] LABS: #Eosinphils 0.2 thou/uL (0.0-0.7); #Monocytes 0.5 thou/uL (0.11-0.59); #Neutrophils 5.7 thou/uL (1.40-6.50); %Basophils 0.1 % (0.0-1.0); %Eosinophils 2.8 % (0.0-10.0); %Lymphocytes 20.3 % (21.0-51.0); %Monocytes 6.3 % (0.0-10.0); %Neutrophils 70.1 % (42.0-75.0); Hematocrit 31.2 % (36.0-47.0); Hemoglobin 10.5 g/dL (12.0-16.0); Mean Corpuscular HGB CONC 33.7 g/dL (32.0-36.0); Mean Corpuscular Hemoglobin 29.2 pg (27.0-31.0); Mean Corpuscular Volume 86.7 fl (78.0-98.0); Mean Platelet Volume 10.1 fL (7.4-10.4); Platelet Count 231 10x3/uL (130-400); RBC Distribution Width 12.8 % (11.5-14.5); White Blood Cell (WBC) Count 8.1 10x3/uL (4.8-10.8)
[2023-04-18 16:25] LABS: BHCG - Serum Negative (NEGATIVE); Pregs Control Background? CLEAR/WHITE (CLR/WHITE); Pregs Control Bar Appear? YES (CONTROL BAR)
[2023-04-18] MEDS ORDERED: Ketorolac Tromethamine 30 MG (1 mL) VIAL ONE (16:27)
[2023-04-18] MEDS ORDERED: Acetaminophen 500 MG TAB ONE (16:27)
[2023-04-18 16:28] LABS: ALT (SGPT) 7 U/L (8-55); AST (SGOT) 13 U/L (5-34); Albumin 3.6 g/dL (3.5-5.0); Alkaline Phosphatase 54 U/L (40-110); Anion Gap 9 mmol/L (10-20); BUN (Urea Nitrogen) 8 mg/dL (7.0-18.7); Bilirubin, Total 0.4 mg/dL (0.2-1.2); Calc. Creatinine Clearance 0 mL/min (70-130); Calcium 8.4 mg/dL (7.8-10.44); Carbon Dioxide 21 mmol/L (22-29); Chloride 110 mmol/L (98-107); Estimated GFR 103; Globulin 2.9 g/dL (2.4-3.5); Glucose 109 mg/dL (70-105); Potassium 3.7 mmol/L (3.5-5.1); Protein, Total 6.5 g/dL (6.0-8.3); Sodium 136 mmol/L (136-145)
[2023-04-18 16:31] LABS: Troponin I Less than 0.010 ng/mL (< 0.028)
== END 2023-04-18 17:12 | disposition home or self-care (01) ==
LOC: ERS 14:43
DX: R55 Syncope and collapse (principal); R51.9 Headache, unspecified; M62.838 Other muscle spasm; G47.00 Insomnia, unspecified; Z55.6 Problems related to health literacy
CPT/HCPCS: 36415; 70450; 72125; 80053; 84484; 84703; 85025; 93005; 96374; 96375; J1200; J1885; J2765

== ENCOUNTER 2023-12-18 13:32 | Inpatient (IN) | payer BC, OTHER ==
[2023-12-18] MEDS ORDERED: Rocuronium Bromide 10 MG/ML (10ML VIAL) ONE (13:42)
[2023-12-18] MEDS ORDERED: Etomidate 40 MG (20 mL) VIAL ONE ×2 (13:42→13:45)
[2023-12-18] MEDS ORDERED: Propofol 1,000 MG/100 ML VIAL IV ONE ×2 (13:50→16:15)
[2023-12-18 14:22] LABS: Actual Bicarbonate (HCO3a) 17.7 mEq/L (22-28); Analyzer IN Cardio ER; Base Excess (BEa) -5.7 mEq/L (-2.0 to +3.0); CO2 Tension 28.7 mmHg (35.0-45.0); Calcium, Ionized (arterial) 1.14 mmol/L (1.12-1.30); Carboxyhemoglobin (COHb) 0.3 gm% (0.0-3.0); Hematocrit-ABG 36 % (36.0-47.0); Hemoglobin (Hb) 12.4 g/dL (12.0-16.0); O2 Tension (PaO2), arterial 97.3 mmHg (80.0-100.0); pH, Arterial 7.408 (7.35-7.45)
[2023-12-18 14:23] LABS: ALV-art Gradient 66.465 mmHg (0-20); Potassium - ABG Lab 2.64 mmol/L (3.70-5.30); Puncture Site Right Radial artery
[2023-12-18] MEDS ORDERED: Potassium Chloride 20 MEQ (100 mL) BAG ONE ×2 (14:33→16:24)
[2023-12-18 14:42] LABS: #Basophils Less than 0.03 10x3/uL (0.0-0.2); %Basophils 0.1 % (0.0-1.0); %Eosinophils 0.3 % (0.0-10.0); %Lymphocytes 20.5 % (21.0-51.0); %Neutrophils 71.9 % (42.0-75.0); Hematocrit 34.8 % (36.0-47.0); Hemoglobin 11.9 g/dL (12.0-16.0); Mean Corpuscular HGB CONC 34.2 g/dL (32.0-36.0); Mean Corpuscular Hemoglobin 28.5 pg (27.0-31.0); Mean Corpuscular Volume 83.3 fL (78.0-98.0); Mean Platelet Volume 10.6 fL (7.4-10.4); Platelet Count 280 10x3/uL (130-400); RBC Distribution Width 13.5 % (11.5-14.5); Red Blood Cell (RBC) Count 4.18 mill/uL (4.20-5.40)
[2023-12-18] MEDS ORDERED: fentaNYL 50 mcg/mL 1 mL Vial ONE (14:42)
[2023-12-18 14:49] LABS: BHCG - Serum Negative (NEGATIVE); Pregs Control Background? CLEAR/WHITE (CLR/WHITE); Pregs Control Bar Appear? YES (CONTROL BAR)
[2023-12-18 14:54] LABS: Bacteria/HPF None Seen HPF (None Seen); Bilirubin Negative (Negative); Blood, Urine Negative (Negative); CAUTI Indications for Culture Dysuria,urgency,freq; Clarity Clear (Clear); Glucose, Urine (Dipstick) Normal (Negative); INR-International Normal Ratio 1.1; Ketone, Urine 40 mg/dL (Negative); Leukocyte Negative Leu/uL (Negative); Nitrite Negative (Negative); PTT 27.8 sec (22.9-36.1); Protein, Urine (Dipstick) Negative (Neg-Trace); Prothrombin Time 14.3 sec (12.0-14.7); RBC/HPF 0-3 HPF (0-3); Specific Gravity, Urine 1.014 (1.002-1.036); Squamous Epithelial 0-3 HPF (0-3); Urobilinogen Normal mg/dL (Less than 2); pH, Urine 5.5 (5.0-9.0)
[2023-12-18 14:56] LABS: Urine Culture Reflex No No
[2023-12-18 14:59] LABS: ALT (SGPT) 10 U/L (8-55); AST (SGOT) 15 U/L (5-34); Albumin 3.9 g/dL (3.5-5.0); Alkaline Phosphatase 59 U/L (40-110); Anion Gap 12 mmol/L (10-20); BUN (Urea Nitrogen) 6 mg/dL (7.0-18.7); Bilirubin, Total 0.6 mg/dL (0.2-1.2); Calc. Creatinine Clearance 0 mL/min (70-130); Carbon Dioxide 20 mmol/L (22-29); Chloride 107 mmol/L (98-107); Estimated GFR 102; Globulin 3.9 g/dL (2.4-3.5); Glucose 126 mg/dL (70-105); Protein, Total 7.8 g/dL (6.0-8.3); Sodium 136 mmol/L (136-145)
[2023-12-18] MEDS ORDERED: Fentanyl CADD 100 ML IV SCH ×2 (15:00→16:15)
[2023-12-18 15:05] LABS: Troponin I Less than 0.010 ng/mL (< 0.028)
[2023-12-18] MEDS ORDERED: Acetaminophen 650 MG Suppository PR PRN (15:48)
[2023-12-18] MEDS ORDERED: Ondansetron PF 4 MG/2 ML Vial IVP PRN (15:48)
[2023-12-18] MEDS ORDERED: Bisacodyl 10 MG SUPP PR PRN (15:48)
[2023-12-18] MEDS ORDERED: EPINEPHrine 4 MG in Dextrose 5% in Water 250 ML IV SCH (16:00)
[2023-12-18] MEDS ORDERED: diphenhydrAMINE 50 MG/ML VIAL IVP PRN (16:00)
[2023-12-18] MEDS ORDERED: Ventilator Sedation Protocol 1 EACH FS SCH (16:00)
[2023-12-18] MEDS ORDERED: Midazolam HCl 5 mg/ml Vial ONE (16:11)
[2023-12-18] MEDS ORDERED: Morphine 2 MG/ML VIAL SLOW IVP PRN (16:15)
[2023-12-18] MEDS ORDERED: Lorazepam 2 MG/ML VIAL SLOW IVP PRN (16:15)
[2023-12-18] MEDS ORDERED: DISCONTINUE PREVIOUS NARCOTIC PAIN MEDICATIONS AND BENZODIAZEPINES FS SCH (16:15)
[2023-12-18] MEDS ORDERED: Propofol BOLUS 1,000 MG/100 ML VIAL IV PRN (16:15)
[2023-12-18] MEDS ORDERED: Fentanyl BOLUS 250 ML IVPB PRN (16:15)
[2023-12-18] MEDS ORDERED: Dexmedetomidine In 0.9 % NaCl 100 ML IVPB SCH (16:45)
[2023-12-18] MEDS: Sodium Chloride 0.9% 1,000 ML IV SCH (17:41)
[2023-12-18] MEDS: methylPREDNISolone Sod Succ 40 MG VIAL IVP SCH (17:42)
[2023-12-18] MEDS: Propofol 1,000 MG/100 ML VIAL IV PRN (19:14)
[2023-12-18] MEDS: Famotidine/PF 20 mg/2ml Vial SLOW IVP SCH (20:35)
[2023-12-18 22:56] LABS: Anion Gap 12 mmol/L (10-20); BUN (Urea Nitrogen) 4 mg/dL (7.0-18.7); Calc. Creatinine Clearance 249 mL/min (70-130); Calcium 8.4 mg/dL (7.8-10.44); Carbon Dioxide 18 mmol/L (22-29); Chloride 111 mmol/L (98-107); Estimated GFR 119; Glucose 126 mg/dL (70-105); Potassium 4.3 mmol/L (3.5-5.1); Sodium 137 mmol/L (136-145)
[2023-12-19 05:31] LABS: #Basophils Less than 0.03 10x3/uL (0.0-0.2); #Eosinophils Less than 0.03 10x3/uL (0.0-0.7); %Lymphocytes 12.5 % (21.0-51.0); %Monocytes 5.1 % (0.0-10.0); Hematocrit 33.6 % (36.0-47.0); Hemoglobin 11.2 g/dL (12.0-16.0); Mean Corpuscular HGB CONC 33.3 g/dL (32.0-36.0); Mean Corpuscular Hemoglobin 28.4 pg (27.0-31.0); Mean Corpuscular Volume 85.3 fL (78.0-98.0); Mean Platelet Volume 10.4 fL (7.4-10.4); Platelet Count 249 10x3/uL (130-400); RBC Distribution Width 13.8 % (11.5-14.5); Red Blood Cell (RBC) Count 3.94 mill/uL (4.20-5.40)
[2023-12-19 05:44] LABS: ALT (SGPT) 8 U/L (8-55); AST (SGOT) 13 U/L (5-34); Albumin 3.6 g/dL (3.5-5.0); Alkaline Phosphatase 57 U/L (40-110); Anion Gap 10 mmol/L (10-20); BUN (Urea Nitrogen) 4 mg/dL (7.0-18.7); Bilirubin, Total 0.3 mg/dL (0.2-1.2); Calc. Creatinine Clearance 226 mL/min (70-130); Calcium 8.6 mg/dL (7.8-10.44); Carbon Dioxide 22 mmol/L (22-29); Chloride 113 mmol/L (98-107); Estimated GFR 116; Glucose 115 mg/dL (70-105); Potassium 4.4 mmol/L (3.5-5.1); Protein, Total 7.6 g/dL (6.0-8.3); Sodium 141 mmol/L (136-145)
[2023-12-20 04:54] LABS: #Basophils Less than 0.03 10x3/uL (0.0-0.2); #Eosinophils Less than 0.03 10x3/uL (0.0-0.7); %Basophils 0.1 % (0.0-1.0); %Eosinophils 0.1 % (0.0-10.0); %Lymphocytes 26.8 % (21.0-51.0); %Monocytes 5.8 % (0.0-10.0); Hematocrit 33.5 % (36.0-47.0); Hemoglobin 11.2 g/dL (12.0-16.0); Mean Corpuscular HGB CONC 33.4 g/dL (32.0-36.0); Mean Corpuscular Hemoglobin 28.9 pg (27.0-31.0); Mean Corpuscular Volume 86.6 fL (78.0-98.0); Mean Platelet Volume 10.4 fL (7.4-10.4); Platelet Count 222 10x3/uL (130-400); RBC Distribution Width 14.1 % (11.5-14.5); Red Blood Cell (RBC) Count 3.87 mill/uL (4.20-5.40)
[2023-12-20 05:10] LABS: Anion Gap 14 mmol/L (10-20); BUN (Urea Nitrogen) 8 mg/dL (7.0-18.7); Calc. Creatinine Clearance 244 mL/min (70-130); Calcium 8.4 mg/dL (7.8-10.44); Chloride 112 mmol/L (98-107); Estimated GFR 118; Glucose 76 mg/dL (70-105); Potassium 3.4 mmol/L (3.5-5.1); Sodium 141 mmol/L (136-145)
[2023-12-20 05:31] LABS: Carbon Dioxide 18 mmol/L (22-29)
[2023-12-20] MEDS ORDERED: clonazePAM 0.5 MG TAB PO PRN (14:32)
[2023-12-20] MEDS: Sertraline 25 MG TAB PO SCH (15:38)
[2023-12-20] MEDS: Aripiprazole 10 MG TAB PO SCH ×2 (15:38→20:37)
[2023-12-20] MEDS: Montelukast Sodium 10 mg Tablet PO SCH (20:37)
[2023-12-20] MEDS: traZODone HCl 50 MG TAB PO SCH (20:37)
[2023-12-21 05:30] LABS: Anion Gap 14 mmol/L (10-20); BUN (Urea Nitrogen) 6 mg/dL (7.0-18.7); Calc. Creatinine Clearance 256 mL/min (70-130); Calcium 8.7 mg/dL (7.8-10.44); Carbon Dioxide 15 mmol/L (22-29); Chloride 112 mmol/L (98-107); Estimated GFR 120; Glucose 71 mg/dL (70-105); Sodium 137 mmol/L (136-145)
[2023-12-21 05:49] LABS: #Basophils Less than 0.03 10x3/uL (0.0-0.2); %Basophils 0.2 % (0.0-1.0); %Eosinophils 1.4 % (0.0-10.0); %Lymphocytes 28.8 % (21.0-51.0); %Monocytes 8.5 % (0.0-10.0); %Neutrophils 60.6 % (42.0-75.0); Hematocrit 34.6 % (36.0-47.0); Hemoglobin 11.4 g/dL (12.0-16.0); Mean Corpuscular HGB CONC 32.9 g/dL (32.0-36.0); Mean Corpuscular Hemoglobin 28.9 pg (27.0-31.0); Mean Corpuscular Volume 87.6 fL (78.0-98.0); Mean Platelet Volume 10.9 fL (7.4-10.4); Platelet Count 160 10x3/uL (130-400); RBC Distribution Width 14.3 % (11.5-14.5); Red Blood Cell (RBC) Count 3.95 mill/uL (4.20-5.40)
[2023-12-21] MEDS: Sertraline 25 MG TAB PO SCH (08:07)
[2023-12-21] MEDS ORDERED: clonazePAM 0.5 MG TAB PO PRN (09:34)
[2023-12-21 11:34] VITALS: BP 103/74; TEMP 97.5
== END 2023-12-21 14:00 | disposition home or self-care (01) | DRG 915 ==
LOC: ERS 13:32 → SUATTDRO 13:32 → CCU 16:14 → MSONC 12-19 12:25
PROVIDERS: ADMIT Internal Medicine; ATTEND Internal Medicine
PROC: 0T9B70Z Drainage of Bladder with Drainage Device, Via Natural or Artificial Opening (ICD-10-PCS; principal; 2023-12-18)
PROC: 30233N1 Transfusion of Nonautologous Red Blood Cells into Peripheral Vein, Percutaneous Approach (ICD-10-PCS; 2023-12-18)
PROC: 30233L1 Transfusion of Nonautologous Fresh Plasma into Peripheral Vein, Percutaneous Approach (ICD-10-PCS; 2023-12-18)
PROC: 0D9670Z Drainage of Stomach with Drainage Device, Via Natural or Artificial Opening (ICD-10-PCS; 2023-12-18)
PROC: 0BH17EZ Insertion of Endotracheal Airway into Trachea, Via Natural or Artificial Opening (ICD-10-PCS; 2023-12-18)
PROC: 4A033R1 Measurement of Arterial Saturation, Peripheral, Percutaneous Approach (ICD-10-PCS; 2023-12-18)
PROC: 3E033XZ Introduction of Vasopressor into Peripheral Vein, Percutaneous Approach (ICD-10-PCS; 2023-12-18)
PROC: 5A1935Z Respiratory Ventilation, Less than 24 Consecutive Hours (ICD-10-PCS; 2023-12-18)
DX: T78.2XXA Anaphylactic shock, unspecified, initial encounter (principal); J96.01 Acute respiratory failure with hypoxia; I95.9 Hypotension, unspecified; J30.1 Allergic rhinitis due to pollen; E87.6 Hypokalemia; F39 Unspecified mood [affective] disorder; F41.9 Anxiety disorder, unspecified; K21.9 Gastro-esophageal reflux disease without esophagitis; F31.9 Bipolar disorder, unspecified; R13.10 Dysphagia, unspecified; R45.1 Restlessness and agitation; Z91.011 Allergy to milk products; Z91.013 Allergy to seafood; Z91.018 Allergy to other foods; Z98.890 Other specified postprocedural states; Z90.89 Acquired absence of other organs; Z98.891 History of uterine scar from previous surgery
CPT/HCPCS: 36415; 36430; 36600; 71045; 80048; 80053; 81001; 82805; 83880; 84443; 84484; 84703; 85025; 85610; 85730; 86850; 86900; 86901; 94002; 94003; J2250; J2704; J2919; J3010; J3480; J3490; J7030; P9048

== ENCOUNTER 2024-09-30 13:41 | Emergency (ER) | payer BC ==
[2024-09-30] MEDS ORDERED: levETIRAcetam 500 MG TAB ONE (16:12)
[2024-09-30 16:28] LABS: #Basophils Less than 0.03 10x3/uL (0.0-0.2); #Eosinophils Less than 0.03 10x3/uL (0.0-0.7); #Monocytes 0.50 10x3/uL (0.11-0.59); #Neutrophils 5.68 10x3/uL (1.40-6.50); %Basophils 0.1 % (0.0-1.0); %Eosinophils 0.3 % (0.0-10.0); %Lymphocytes 20.9 % (21.0-51.0); %Monocytes 6.3 % (0.0-10.0); %Neutrophils 72.1 % (42.0-75.0); Hematocrit 33.1 % (36.0-47.0); Hemoglobin 10.8 g/dL (12.0-16.0); Mean Corpuscular Hemoglobin 27.6 pg (27.0-31.0); Mean Corpuscular Volume 84.4 fL (78.0-98.0); Platelet Count 235 10x3/uL (130-400); Red Blood Cell (RBC) Count 3.92 mill/uL (4.20-5.40); White Blood Cell (WBC) Count 7.88 10x3/uL (4.8-10.8)
[2024-09-30 16:49] LABS: ALT (SGPT) 7 U/L (Less than 34); AST (SGOT) 17 U/L (11-34); Albumin 3.8 g/dL (3.1-4.5); Alkaline Phosphatase 64 U/L (40-110); Anion Gap 13 mmol/L (10-20); BUN (Urea Nitrogen) 6 mg/dL (7.0-18.7); Bilirubin, Total 0.5 mg/dL (0.3-1.2); Calc. Creatinine Clearance 0 mL/min (70-130); Calcium 8.8 mg/dL (7.8-10.44); Carbon Dioxide 21 mmol/L (22-29); Chloride 109 mmol/L (98-107); Globulin 3.7 g/dL (2.4-3.5); Glucose 73 mg/dL (70-105); Potassium 4.2 mmol/L (3.5-5.1); Sodium 139 mmol/L (136-145)
[2024-09-30 16:50] LABS: BHCG - Serum Negative (NEGATIVE); Pregs Control Background? CLEAR/WHITE (CLR/WHITE); Pregs Control Bar Appear? YES (CONTROL BAR)
== END 2024-09-30 18:18 | disposition home or self-care (01) ==
LOC: ERS 13:41
DX: R56.9 Unspecified convulsions (principal); R29.700 NIHSS score 0
CPT/HCPCS: 80053; 84703; 85025; 93005; 99284

== ENCOUNTER 2024-11-12 10:10 | Emergency (ER) | payer BC ==
[2024-11-12] MEDS ORDERED: Acetaminophen 500 MG TAB ONE (10:41)
[2024-11-12 10:46] LABS: #Basophils Less than 0.03 10x3/uL (0.0-0.2); #Eosinophils 0.03 10x3/uL (0.0-0.7); #Monocytes 0.31 10x3/uL (0.11-0.59); #Neutrophils 3.89 10x3/uL (1.40-6.50); %Basophils 0.4 % (0.0-1.0); %Eosinophils 0.6 % (0.0-10.0); %Lymphocytes 18.8 % (21.0-51.0); %Monocytes 5.9 % (0.0-10.0); %Neutrophils 73.9 % (42.0-75.0); Hematocrit 33.0 % (36.0-47.0); Hemoglobin 10.8 g/dL (12.0-16.0); Mean Corpuscular Hemoglobin 27.6 pg (27.0-31.0); Mean Corpuscular Volume 84.2 fL (78.0-98.0); Platelet Count 279 10x3/uL (130-400); Red Blood Cell (RBC) Count 3.92 mill/uL (4.20-5.40); White Blood Cell (WBC) Count 5.26 10x3/uL (4.8-10.8)
[2024-11-12 12:33] LABS: ALT (SGPT) Less than 7 U/L (Less than 34); AST (SGOT) 26 U/L (11-34); Albumin 3.8 g/dL (3.1-4.5); Alkaline Phosphatase 62 U/L (40-110); Anion Gap 12 mmol/L (10-20); BUN (Urea Nitrogen) 4 mg/dL (7.0-18.7); Bilirubin, Total 0.5 mg/dL (0.3-1.2); Calc. Creatinine Clearance 0 mL/min (70-130); Calcium 9.0 mg/dL (7.8-10.44); Carbon Dioxide 20 mmol/L (22-29); Chloride 112 mmol/L (98-107); Globulin 3.6 g/dL (2.4-3.5); Glucose 75 mg/dL (70-105); Potassium 4.1 mmol/L (3.5-5.1); Sodium 140 mmol/L (136-145)
[2024-11-12] MEDS ORDERED: Ketorolac Tromethamine 30 MG (1 mL) VIAL ONE (12:54)
== END 2024-11-12 13:18 | disposition home or self-care (01) ==
LOC: ERS 10:10
DX: R56.9 Unspecified convulsions (principal); Z79.899 Other long term (current) drug therapy; W19.XXXA Unspecified fall, initial encounter; W22.8XXA Striking against or struck by other objects, initial encounter
CPT/HCPCS: 36415; 70450; 80053; 85025; 93005; 94760; 96374; J1885